=== PATIENT | female | born 1950 | race Native Hawaiian/Other Pacific Islander ===

== ENCOUNTER 2019-02-07 12:17 | Emergency (ER) | payer MEDICAID, SELFPAY ==
[2019-02-07 12:20] VITALS: BP 151/78; PULSE 83; RESP 18; TEMP 36.8; O2SAT 98
--- NOTE | 2019-02-07 13:04 | ED_ITS ---
HPI - Neck Pain/Injury General Chief Complaint: Neck Pain/Injury Stated Complaint: Neck pain Time Seen by Provider: 02/07/19 13:03 Source: patient Mode of arrival: Ambulatory Limitations: language barrier and other (chronic memory issues) History of Present Illness HPI Narrative: 69-year-old female is brought in by her niece for complaint of neck pain patient had been in the shower. She walked out to her niece and stated that her neck hurting. There was no known trauma or fall. Patient has memory issues so she does not remember any recent falls. The knee states she did hear any sounds like she'd fallen and states that she walked out on her own. Patient has had normal movement with no weakness on 1 side versus the other. She has been in her normal baseline. She is not complaining of a headache. 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 Patient does take an aspirin daily and takes medication for diabetes including insulin. Patient has not been complaining of chest pain, no shortness of breath, no nausea vomiting no other GI or urinary symptoms. She took her aspirin this morning but did not have any other medication for pain. Her family has not noticed any bruising skin changes or trauma. Patient has not been protecting herself and has had full range of motion. No fevers or chills. Review of Systems Review of Systems ROS Unobtainable: All systems reviewed & are unremarkable except as noted in HPI and below Patient History Medical History (Updated 02/07/19 @ 14:52 by Carly Torrez DO) Diabetes (Acute) Exam Narrative Exam Narrative: GEN: C-collar in ED. Patient appears in mild distress. HEAD: No evidence of trauma, no raccoon/Muniz sign. NECK: Nontender, painless range of motion, trachea midline Positive Nexus criteria, there is no mid line tenderness, distracting injury, + altered mental status second to chronic memory issues, no new changes to mental status, no neuro deficit, recent EtOH. EYES: PERRLA on right, unable to perform on left, EOMI ENT: External inspection normal except for loss of left eye. Area looks clean dry. Trachea is midline, TM's are normal no hemotypanum, Nares are clear, no septal hematoma, no dental or oral injury, airway is normal and with normal occlusion, No bony tenderness RESP: Chest is nontender and has symmetric movement, no ecchymosis, breath sounds are normal no crackles, wheezes or rales CVS: Heart sounds are normal, no murmur noted, No JVD. ABG/GI: Nontender, soft, normal bowel sounds, no distention, no organomegaly, pelvic rock is negative. NEURO: Oriented AOx3, neuro is grossly intact, sensation and motor is normal all 4 extremities moving, cranial nerves II through XII are intact. PSYCH: Normal mood and affect SKIN: Intact, warm and dry, no crepitus and without decubitus BACK: No CVA tenderness, no vertebral tenderness, patient has full range of motion of her neck. No step-off's, no crepitus EXT: Atraumatic, hips are nontender, no pedal edema, normal color and temperature, normal range of motion of extremities with normal tendon exam, 2+ pulses in all four extremities Initial Vital Signs Initial Vital Signs: Vital Signs Temperature 98.3 F 02/07/19 12:20 Pulse Rate 83 02/07/19 12:20 Respiratory Rate 18 02/07/19 12:20 Blood Pressure 151/78 H 02/07/19 12:20 Pulse Oximetry 98 02/07/19 12:20 Scores GCS [place] coma scale eye opening: Spontaneous [place] coma scale verbal response: Confused Joann coma scale motor response: Obey commands Joann coma scale total score: 14 Course Orders Ordered: ED Orders 02/07/19 13:18 CT cervical spine wo con Stat CT head/brain wo con Stat EKG-12 Lead Stat Vital Signs Vital signs: Vital Signs - 8 hr 02/07/19 12:20 02/07/19 14:53 Temperature 98.3 F Pulse Rate 83 81 Respiratory Rate 18 14 Blood Pressure 151/78 H Blood Pressure [Right Arm] 151/84 H Pulse Oximetry 98 98 MDM - Neck Pain/Injury Imaging Data CT scan - head: Radiologist's Impression: No acute intracranial hemorrhage. No acute intracranial process. Note is made of age-appropriate brain parenchymal volume loss and chronic small-vessel ischemic changes. CT Cspine: Radiologist's Impression: No acute fracture, focal C5-C6 degenerative changes with moderate disc space narrowing. Posteriorly projected endplate osteophytes are seen. Milder degenerative changes are seen elsewhere. Soft tissues are normal. ECG Data Attestation: I personally reviewed and interpreted this ECG as follows: Prior ECG tracings: not available for review Interpretation: Sinus rhythm with 1st degree AV block. Rate of 73 CA 220 QRS of 95 and QTC of 389. No ST elevation or depression appreciated. MDM Narrative Medical decision making narrative: Packs for some reason did not electronically connect and patient's reports are not available to import into the chart but are dicated into the chart. Patient does have some degenerative changes particularly at C5-6. She does not have any focal neurologic changes or other concerning changes. C-collar was cleared as patient does not have any known recent trauma, asymptomatic on exam. Patient had some Tylenol which was somewhat helpful. Plan for Tylenol, warm heat and follow-up with primary care. Discharge Plan Departure Patient Disposition: Home Clinical Impression: Neck pain, Degeneration of C5-C6 intervertebral disc Discharge Date/Time: 02/07/19 15:00 Instructions: DI for Neck Pain Activity Restrictions/Additional Instructions: Follow up with primary care for recheck, there are some chronic changes of the neck that may be causing pain. There are no fractures or breaks noted. Patient may continue with Tylenol up to 975 mg every 8 hours as needed for pain. Continue with moist heat and warmth as needed to affected area. Return to the ER for fevers greater 100.4 F, rapidly worsening pain, passing out, severe headaches, difficulty with speech, new weakness, this difficulty with movement of arms or lower extremities, problems with psychologist developmental, passing out, persistent vomiting or other new or concerning symptoms.
--- NOTE | 2019-02-07 13:18 | DI.CT.S_ITS ---
PROCEDURE: CT CERVICAL SPINE WO CON INDICATIONS: neck pain, general,? fall, no obvs trauma TECHNIQUE: Noncontrast 3 mm thick sections acquired from the skull base to the T4 level. Sagittal and coronal reformats were then constructed. For radiation dose reduction, the following was used: automated exposure control, adjustment of mA and/or kV according to patient size. COMPARISON: [facility], CT, CT HEAD/BRAIN WO CON, 02/07/2019, 13:31. FINDINGS: Image quality: Excellent. Bones: No fractures or dislocations. Visualized superior ribs are intact. Degenerative changes are seen, including moderate disc space narrowing at C5-C6 level. Posteriorly projected endplate osteophytes are seen at this level. Milder degenerative changes are seen elsewhere. Soft tissues: Prevertebral soft tissues are normal in thickness. No paravertebral hematomas. No apical pneumothoraces. Atherosclerotic calcification is noted. IMPRESSION: No acute fractures are seen. Focal C5-C6 degenerative change. Dictated by: Roshan Ibrahim M.D. on 02/07/2019 at 12:57 Approved by: Roshan Ibrahim M.D. on 02/07/2019 at 12:58
--- NOTE | 2019-02-07 13:18 | DI.CT.S_ITS ---
PROCEDURE: CT HEAD/BRAIN WO CON INDICATIONS: NECK PAIN ?FALL TECHNIQUE: Noncontrast 4.5 mm thick angled axial sections acquired from the foramen magnum to the vertex, with coronal and sagittal reformats. For radiation dose reduction, the following was used: automated exposure control, adjustment of mA and/or kV according to patient size. COMPARISON: [facility], CT, CT CERVICAL SPINE WO CON, 02/07/2019, 13:31. FINDINGS: Image quality: Excellent. CSF spaces: Basal cisterns are patent. No extra-axial fluid collections. The ventricles are symmetric in size and shape. Brain: No intracranial bleeds or masses. There is cerebral volume loss for age, with resultant ventricular and sulcal prominence. There are periventricular and deep white matter chronic small vessel ischemic changes. There is intracranial internal carotid artery atherosclerosis. Skull and face: Calvarium and visualized facial bones appear intact, without suspicious lesions. Sinuses: Visualized sinuses and mastoids are clear. IMPRESSION: No acute intracranial hemorrhage is seen. No acute intracranial process is seen. Note is made of age-appropriate brain parenchymal volume loss and chronic small vessel ischemic changes. Dictated by: Roshan Ibrahim M.D. on 02/07/2019 at 12:56 Approved by: Roshan Ibrahim M.D. on 02/07/2019 at 12:57
[2019-02-07 14:53] VITALS: BP 151/84; PULSE 81; RESP 14; O2SAT 98
== END 2019-02-07 15:00 | disposition home or self-care (01) ==
PROVIDERS: Emergency Provider Emergency Medicine
DX: M50.322 Other cervical disc degeneration at C5-C6 level (principal); R41.0 Disorientation, unspecified; I44.0 Atrioventricular block, first degree
CPT/HCPCS: 70450; 72125; 93005; 99283; 99284

== ENCOUNTER 2019-04-16 16:12 | Inpatient (IN) | payer MEDICAID, SELFPAY ==
[2019-04-16 16:44] VITALS: BP 82/42; PULSE 65; RESP 16; TEMP 36.3; O2SAT 100; BMI 18.3
[2019-04-16 19:28] VITALS: BP 95/53; PULSE 60; RESP 14; O2SAT 97
--- NOTE | 2019-04-16 19:30 | ED_ITS ---
HPI - Altered Mental Status General Chief Complaint: Altered Mental Status Stated Complaint: latisha dahl,family says she fainted Time Seen by Provider: 04/16/19 19:23 Source: patient and family Mode of arrival: Wheelchair Limitations: language barrier History of Present Illness HPI narrative: 69F nonsmoking diabetic with history of hyperlipidemia presents with her niece and a chief complaint of some gradual mental status supervisor records change the past week or so but a substantial change tonight. She states that she has become this way in the past with urinary tract infections. Patient denies any medication change nor dietary change. She denies any injury nor recent travel. She has had no fever or chills. She denies any chest pain, cough or shortness of breath. MD complaint: altered mental status and confusion Onset (ago): hour(s) Timing confirmed by: family member Severity: moderate Consistency of symptoms: getting worse Context: history of similar presentation Associated symptoms: denies other symptoms Related Data Home Medications Medication Instructions Recorded Confirmed Adults Multivitamin 04/17/19 aspirin [Adult Low Dose Aspirin] 81 mg 4-6XD 04/17/19 04/17/19 insulin glargine [Lantus U-100 6 unit SUBCUT BID 04/17/19 04/17/19 Insulin] metformin 500 mg BID 04/17/19 04/17/19 simvastatin 04/17/19 Review of Systems Constitutional Constitutional: Denies chills, Denies fatigue, Denies fever(s), Denies frequent falls, Reports lethargy and Reports weakness Eyes Eyes: Denies change in vision, Denies eye discharge, Denies irritation and Denies loss of vision ENT Ears, Nose, Mouth, and Throat: Denies change in voice, Denies dizziness, Denies neck pain, Denies sore throat and Denies throat swelling Cardiovascular Cardiovascular: Denies chest pain, Denies irregular heart rhythm, Denies lightheadedness, Denies palpitations, Denies dyspnea, Denies dyspnea on exertion and Denies orthopnea Respiratory Respiratory: Denies cough, Denies dyspnea, Denies dyspnea on exertion and Denies wheezing Gastrointestinal Gastrointestinal: Denies abdominal pain, Denies change in bowel habits, Denies diarrhea, Denies nausea and Denies vomiting Genitourinary Genitourinary: Denies hematuria, Denies flank pain, Denies urinary incontinence and Denies urinary urgency Musculoskeletal Musculoskeletal: Denies back pain, Denies muscle weakness, Denies neck pain, Denies numbness and Denies tingling Integumentary/Breasts Skin/Breast: Denies pruritus, Denies erythema, Denies rash and Denies wounds Neurologic Neurologic: Denies behavioral changes, Denies confusion, Denies dizziness, Denies frequent falls, Denies loss of vision, Denies numbness, Denies tingling and Reports weakness Psychiatric Psychiatric: Denies anxiety, Denies behavioral changes, Denies confusion, Denies depression, Denies homicidal ideation and Denies suicidal ideation Endocrine Endocrine: Denies fatigue, Denies flushing and Denies palpitations Hematologic/Lymphatic Hematologic/Lymphatic: Denies easy bruising Allergic/Immunologic Allergic/Immunologic: Denies urticaria, Denies throat swelling and Denies whee zing Patient History Medical History Diabetes (Acute) Social History household members: family Smoking Status: Never smoker alcohol intake: never Smoking Status: Never smoker Substance Use Type: does not use Exam Narrative Exam Narrative: GENERAL: [69 year old patient appears stated age. Very thin with temporal wasting, easily arousable but resting HEAD: Atraumatic. Normocephalic. EYES: Pupils equal round and reactive. Extraocular motions intact. No scleral icterus. No injection or drainage. ENT: Nose without bleeding, purulent drainage. Throat without erythema, tonsillar hypertrophy or exudate. Airway patent. NECK: Trachea midline. Non tender CARDIOVASCULAR: Regular rate and rhythm without murmurs, gallops, or rubs. RESPIRATORY: Clear to auscultation. Breath sounds equal bilaterally. No wheezes, rales, or rhonchi. GASTROINTESTINAL: Abdomen soft, non-tender, nondistended. EXTREMITIES: No edema or joint tenderness. BACK: Nontender without deformity or crepitance. No flank tenderness. NEURO: AOx3. SKIN: No rash or erythema of visible areas Initial Vital Signs Initial Vital Signs: Vital Signs Temperature 97.3 F L 04/16/19 16:44 Pulse Rate 65 04/16/19 16:44 Respiratory Rate 16 04/16/19 16:44 Blood Pressure 82/42 L 04/16/19 16:44 Pulse Oximetry 100 04/16/19 16:44 Course Orders Ordered: ED Orders 04/16/19 23:30 Urinalysis and Microscopic Stat Urine Culture Stat Urine Drug Screen, Rapid Stat Acetaminophen (Tylenol) 650 mg PO Q6HR PRN PRN Reason: Fever/Mild Pain (1-3) Al Hydrox/Mg Hydrox/Simethicone (Maalox Plus) 30 ml PO Q6HR PRN PRN Reason: Dyspepsia Aspirin (Aspirin Ec) 81 mg PO DAILY ISAI Bisacodyl (Dulcolax) 10 mg AL DAILY PRN PRN Reason: Constipation Calcium Carbonate (Tums) 1,000 mg PO Q4HR PRN PRN Reason: Dyspepsia Dextrose (D50w) 25 gm IV PRN PRN; Protocol PRN Reason: Hypoglycemia Docusate Sodium (Colace) 100 mg PO BID PRN PRN Reason: Constipation Enoxaparin Sodium (Lovenox) 30 mg SUBCUT DAILY [facility] Sodium Chloride (Normal Saline 0.9%) 1,000 mls @ 100 mls/hr IV CONT [facility] Last Admin: 04/17/19 02:24 Dose: 100 mls/hr Documented by: REBECCA Ceftriaxone Sodium/Dextrose (Rocephin) 1 gm in 50 mls @ 100 mls/hr IV Q24H [facility] Insulin Aspart (Novolog Flexpen) 0 unit SUBCUT ACHS [facility]; Protocol Last Admin: 04/17/19 02:23 Dose: 2 unit Documented by: REBECCA Cosigned by: JESUS Insulin Glargine (Lantus (Vial)) 6 unit SUBCUT BID [facility] Naloxone HCl (Narcan) 0.2 mg IV Q2MIN PRN PRN Reason: Opiate Reversal Ondansetron HCl (Zofran) 4 mg IV Q8HR PRN PRN Reason: Nausea And Vomiting Discontinued Medications Aspirin (Aspirin Ec) 81 mg PO 4-6XD [facility] Sodium Chloride (Normal Saline 0.9%) 1,000 mls @ 1,000 mls/hr IV BOLUS ONE Stop: 04/16/19 21:34 Last Infusion: 04/16/19 23:57 Dose: 0 mls/hr Documented by: Admin: 04/16/19 20:44 Dose: 1,000 mls/hr Documented by: SHAHEEN Ceftriaxone Sodium/Dextrose (Rocephin) 1 gm in 50 mls @ 100 mls/hr IV NOW ONE Stop: 04/17/19 00:31 Last Infusion: 04/17/19 00:53 Dose: 0 mls/hr Documented by: Admin: 04/17/19 00:28 Dose: 100 mls/hr Documented by: SHAHEEN Metformin HCl (Glucophage) 500 mg PO BID ISAI Vital Signs Vital signs: Vital Signs - 8 hr 04/16/19 16:44 04/16/19 19:28 04/16/19 20:30 Temperature 97.3 F L Pulse Rate 65 60 61 Respiratory Rate 16 14 12 Blood Pressure 82/42 L Blood Pressure [Left Arm] 95/53 L 92/54 L Pulse Oximetry 100 97 99 04/16/19 21:12 Temperature Pulse Rate 66 Respiratory Rate 16 Blood Pressure Blood Pressure [Left Arm] 94/55 L Pulse Oximetry 100 MDM - Altered Mental Status Lab Data Result diagrams: 04/16/19 20:39 04/16/19 20:39 Labs: Lab Results 04/16/19 04/16/19 04/16/19 Range/Units 20:39 20:39 20:39 WBC 8.4 (4.5-11.0) X10^3/uL RBC 3.04 L (4.0-5.2) X10^6/uL Hgb 9.4 L (12.0-16.0) g/dL Hct 27.5 L (36-46) % MCV 90.4 (80-100) fL MCH 31.1 (26-34) PG MCHC 34.4 (30-36) % RDW 13.4 (11.6-14.8) % Plt Count 227 (150-400) X10^3/uL Neut % (Auto) 83.4 H (50-75) % Lymph % (Auto) 9.2 L (25-40) % Mclean % (Auto) 7.0 (3-14) % Eos % (Auto) 0.1 L (2-4) % Baso % (Auto) 0.3 (0-2) % Neut # (Auto) 7000 (8898-4237) /uL Lymph # (Auto) 800 L (8563-3802) /uL Mclean # (Auto) 600 (0-900) /uL Eos # (Auto) 0 (0-450) /uL Baso # (Auto) 0 (0-100) /uL PT 10.9 (10.1-12.7) SECONDS INR 1.0 (0.9-1.3) APTT 30 (26.4-36.2) SECONDS Sodium 123 L (137-145) mmol/L Potassium 4.3 (3.4-5.1) mmol/L Chloride 87 L (98-107) mmol/L Carbon Dioxide 24 (22-32) mmol/L BUN 45 H (7-17) mg/dL Creatinine 1.70 H (0.52-1.04) mg/dL Estimated GFR 29.6 L (>60) mL/min BUN/Creatinine Ratio 26.5 H (6-22) Glucose 307 H (80-110) mg/dL Lactate (0.7-2.1) mmol/L Calcium 8.9 (8.4-10.2) mg/dL Total Bilirubin 0.2 (0.2-1.3) mg/dL AST 67 H (14-36) IU/L ALT 39 H (<35) IU/L Alkaline Phosphatase 63 (38-126) U/L Total Creatine Kinase 141 H (30-135) U/L CK-MB (CK-2) 1.71 (<2.37) ng/mL CK-MB (CK-2) Rel Index 1.2 L (1.5-5.0) % Troponin I < 0.012 (0.01-0.034) ng/mL Total Protein 6.8 (6.3-8.2) g/dL Albumin 3.5 (3.5-5.0) g/dL Globulin 3.3 (1.7-4.1) g/dL Albumin/Globulin Ratio 1.1 (1.0-2.8) TSH (0.47-4.68) uIU/mL Prolactin 8.2 (3.0-18.6) ng/mL Urine Color Urine Appearance Urine pH (4.5-8.0) Ur Specific Napoleon (1.000-1.035) Urine Protein (Negative) Urine Glucose (UA) (Negative) g/dL Urine Ketones (NEGATIVE) Urine Occult Blood (Negative) Urine Nitrate (Negative) Urine Bilirubin (NEGATIVE) Urine Urobilinogen (0.2) E.U./dL Ur Leukocyte Esterase (NEGATIVE) Urine RBC (0-5/HPF) Urine WBC (0-5/HPF) Ur Squamous Epith Cells (0-5/HPF) Urine Bacteria (None) Ur Culture Indicated? Salicylates 1.2 (<20) mg/dL U Opiates 300ng/mL cut (Negative) Ur Oxycodone Screen (Negative) Urine Methadone Screen (Negative) Acetaminophen < 10 L (10-30) ug/mL Ur Barbiturates Screen (Negative) U Tricyclic Antidepress (Negative) Ur Phencyclidine Scrn (Negative) Ur Amphetamines Screen (Negative) U Methamphetamines Scrn (Negative) Ur MDMA Scrn (Ecstasy) (Negative) U Benzodiazepines Scrn (Negative) Urine Cocaine Screen (Negative) U Marijuana (THC) Screen (Negative) Ethyl Alcohol < 10 ( - 10) mg/dL 04/16/19 04/16/19 04/16/19 Range/Units 20:39 20:50 23:30 WBC (4.5-11.0) X10^3/uL RBC (4.0-5.2) X10^6/uL Hgb (12.0-16.0) g/dL Hct (36-46) % MCV (80-100) fL MCH (26-34) PG MCHC (30-36) % RDW (11.6-14.8) % Plt Count (150-400) X10^3/uL Neut % (Auto) (50-75) % Lymph % (Auto) (25-40) % Mclean % (Auto) (3-14) % Eos % (Auto) (2-4) % Baso % (Auto) (0-2) % Neut # (Auto) (6688-7769) /uL Lymph # (Auto) (0309-4945) /uL Mclean # (Auto) (0-900) /uL Eos # (Auto) (0-450) /uL Baso # (Auto) (0-100) /uL PT (10.1-12.7) SECONDS INR (0.9-1.3) APTT (26.4-36.2) SECONDS Sodium (137-145) mmol/L Potassium (3.4-5.1) mmol/L Chloride (98-107) mmol/L Carbon Dioxide (22-32) mmol/L BUN (7-17) mg/dL Creatinine (0.52-1.04) mg/dL Estimated GFR (>60) mL/min BUN/Creatinine Ratio (6-22) Glucose (80-110) mg/dL Lactate 1.9 (0.7-2.1) mmol/L Calcium (8.4-10.2) mg/dL Total Bilirubin (0.2-1.3) mg/dL AST (14-36) IU/L ALT (<35) IU/L Alkaline Phosphatase (38-126) U/L Total Creatine Kinase (30-135) U/L CK-MB (CK-2) (<2.37) ng/mL CK-MB (CK-2) Rel Index (1.5-5.0) % Troponin I (0.01-0.034) ng/mL Total Protein (6.3-8.2) g/dL Albumin (3.5-5.0) g/dL Globulin (1.7-4.1) g/dL Albumin/Globulin Ratio (1.0-2.8) TSH 0.39 L (0.47-4.68) uIU/mL Prolactin (3.0-18.6) ng/mL Urine Color Yellow Urine Appearance Cloudy Urine pH 6.5 (4.5-8.0) Ur Specific Napoleon 1.010 (1.000-1.035) Urine Protein Negative (Negative) Urine Glucose (UA) Trace H (Negative) g/dL Urine Ketones Negative (NEGATIVE) Urine Occult Blood 1+ H (Negative) Urine Nitrate Negative (Negative) Urine Bilirubin Negative (NEGATIVE) Urine Urobilinogen 0.2 (0.2) E.U./dL Ur Leukocyte Esterase 3+ H (NEGATIVE) Urine RBC 0-1/hpf (0-5/HPF) Urine WBC 30-100/hpf H (0-5/HPF) Ur Squamous Epith Cells 1-5 /hpf (0-5/HPF) Urine Bacteria Many (>30) H (None) Ur Culture Indicated? Specimen cultured Salicylates (<20) mg/dL U Opiates 300ng/mL cut (Negative) Ur Oxycodone Screen (Negative) Urine Methadone Screen (Negative) Acetaminophen (10-30) ug/mL Ur Barbiturates Screen (Negative) U Tricyclic Antidepress (Negative) Ur Phencyclidine Scrn (Negative) Ur Amphetamines Screen (Negative) U Methamphetamines Scrn (Negative) Ur MDMA Scrn (Ecstasy) (Negative) U Benzodiazepines Scrn (Negative) Urine Cocaine Screen (Negative) U Marijuana (THC) Screen (Negative) Ethyl Alcohol ( - 10) mg/dL 04/16/19 Range/Units 23:30 WBC (4.5-11.0) X10^3/uL RBC (4.0-5.2) X10^6/uL Hgb (12.0-16.0) g/dL Hct (36-46) % MCV (80-100) fL MCH (26-34) PG MCHC (30-36) % RDW (11.6-14.8) % Plt Count (150-400) X10^3/uL Neut % (Auto) (50-75) % Lymph % (Auto) (25-40) % Mclean % (Auto) (3-14) % Eos % (Auto) (2-4) % Baso % (Auto) (0-2) % Neut # (Auto) (5380-8711) /uL Lymph # (Auto) (3253-5580) /uL Mclean # (Auto) (0-900) /uL Eos # (Auto) (0-450) /uL Baso # (Auto) (0-100) /uL PT (10.1-12.7) SECONDS INR (0.9-1.3) APTT (26.4-36.2) SECONDS Sodium (137-145) mmol/L Potassium (3.4-5.1) mmol/L Chloride (98-107) mmol/L Carbon Dioxide (22-32) mmol/L BUN (7-17) mg/dL Creatinine (0.52-1.04) mg/dL Estimated GFR (>60) mL/min BUN/Creatinine Ratio (6-22) Glucose (80-110) mg/dL Lactate (0.7-2.1) mmol/L Calcium (8.4-10.2) mg/dL Total Bilirubin (0.2-1.3) mg/dL AST (14-36) IU/L ALT (<35) IU/L Alkaline Phosphatase (38-126) U/L Total Creatine Kinase (30-135) U/L CK-MB (CK-2) (<2.37) ng/mL CK-MB (CK-2) Rel Index (1.5-5.0) % Troponin I (0.01-0.034) ng/mL Total Protein (6.3-8.2) g/dL Albumin (3.5-5.0) g/dL Globulin (1.7-4.1) g/dL Albumin/Globulin Ratio (1.0-2.8) TSH (0.47-4.68) uIU/mL Prolactin (3.0-18.6) ng/mL Urine Color Urine Appearance Urine pH (4.5-8.0) Ur Specific Napoleon (1.000-1.035) Urine Protein (Negative) Urine Glucose (UA) (Negative) g/dL Urine Ketones (NEGATIVE) Urine Occult Blood (Negative) Urine Nitrate (Negative) Urine Bilirubin (NEGATIVE) Urine Urobilinogen (0.2) E.U./dL Ur Leukocyte Esterase (NEGATIVE) Urine RBC (0-5/HPF) Urine WBC (0-5/HPF) Ur Squamous Epith Cells (0-5/HPF) Urine Bacteria (None) Ur Culture Indicated? Salicylates (<20) mg/dL U Opiates 300ng/mL cut Negative (Negative) Ur Oxycodone Screen Negative (Negative) Urine Methadone Screen Negative (Negative) Acetaminophen (10-30) ug/mL Ur Barbiturates Screen Negative (Negative) U Tricyclic Antidepress Negative (Negative) Ur Phencyclidine Scrn Negative (Negative) Ur Amphetamines Screen Negative (Negative) U Methamphetamines Scrn Negative (Negative) Ur MDMA Scrn (Ecstasy) Negative (Negative) U Benzodiazepines Scrn Negative (Negative) Urine Cocaine Screen Negative (Negative) U Marijuana (THC) Screen Negative (Negative) Ethyl Alcohol ( - 10) mg/dL Point of Care Testing Glucose POC 259 MDM Narrative Medical decision making narrative: 69-year-old female diabetic presents with acute encephalopathy which upon completion of evaluation seems multifactorial, from a combination of UTI and hyponatremia. Discharge Plan Departure Patient Disposition: Admitted As Inpatient Clinical Impression: Acute metabolic encephalopathy, Acute hyponatremia Admit Date/Time: 04/17/19 00:55 Admit Provider: Faisal Hardin
--- NOTE | 2019-04-16 19:32 | PC.NURSE ---
patient brought in by niece who states her aunt is becoming very weak. States she is normally very active. Reports same symptoms one year ago with UTI.
[2019-04-16 20:30] VITALS: BP 92/54; PULSE 61; RESP 12; O2SAT 99
--- NOTE | 2019-04-16 20:36 | DI.CT.S_ITS ---
PROCEDURE: CT HEAD/BRAIN WO CON INDICATIONS: mental status change TECHNIQUE: Noncontrast 4.5 mm thick angled axial sections acquired from the foramen magnum to the vertex, with coronal and sagittal reformats. For radiation dose reduction, the following was used: automated exposure control, adjustment of mA and/or kV according to patient size. COMPARISON: [facility], CT, CT HEAD/BRAIN WO CON, 02/07/2019, 13:31. FINDINGS: Image quality: Excellent. CSF spaces: Basal cisterns are patent. No extra-axial fluid collections. The ventricles are symmetric in size and shape. Brain: No intracranial bleeds or masses. There is cerebral volume loss for age, with resultant ventricular and sulcal prominence. There are periventricular and deep white matter chronic small vessel ischemic changes. There is intracranial internal carotid artery atherosclerosis. Skull and face: Calvarium and visualized facial bones appear intact, without suspicious lesions. Prosthetic left globe. Sinuses: Visualized sinuses and mastoids are clear. IMPRESSION: No acute intracranial abnormality. Dictated by: Zbigniew Singh M.D. on 04/16/2019 at 21:05 Approved by: Zbigniew Singh M.D. on 04/16/2019 at 21:07
[2019-04-16] MEDS: SODIUM CHLORIDE 0.9% 1,000 ML 1000 ML IV (20:44)
[2019-04-16 20:47] LABS: Add Manual Diff / Slide Review NO; Basophils Absolute Auto 0 /uL (0-100); Basophils Percent Auto 0.3 % (0-2); Eosinophils Absolute Auto 0 /uL (0-450); Eosinophils Percent Auto 0.1 % (2-4); Hematocrit 27.5 % (36-46); Hemoglobin 9.4 g/dL (12.0-16.0); Lymphocytes Absolute Auto 800 /uL (1100-4500); Lymphocytes Percent Auto 9.2 % (25-40); Mean Corpuscular HGB Conc 34.4 % (30-36); Mean Corpuscular Hemoglobin 31.1 PG (26-34); Mean Corpuscular Volume 90.4 fL (80-100); Monocytes Absolute Auto 600 /uL (0-900); Neutrophils Absolute Auto 7000 /uL (1500-7000); Neutrophils Percent Auto 83.4 % (50-75); Platelet Count 227 X10^3/uL (150-400); Red Blood Cell Count 3.04 X10^6/uL (4.0-5.2); Red Cell Distribution Width 13.4 % (11.6-14.8); White Blood Cell Count 8.4 X10^3/uL (4.5-11.0)
[2019-04-16 20:59] LABS: Prothrombin Time 10.9 SECONDS (10.1-12.7)
[2019-04-16 21:01] LABS: PTT Partial Thromboplastin Tim 30 SECONDS (26.4-36.2)
[2019-04-16 21:04] LABS: Acetaminophen < 10 ug/mL (10-30); Alanine Aminotransferase 39 IU/L (<35); Albumin 3.5 g/dL (3.5-5.0); Albumin Globulin Ratio 1.1 (1.0-2.8); Alkaline Phosphatase 63 U/L (38-126); Aspartate Aminotransferase 67 IU/L (14-36); BUN Creatinine Ratio 26.5 (6-22); Bilirubin Total 0.2 mg/dL (0.2-1.3); Blood Urea Nitrogen 45 mg/dL (7-17); Calcium 8.9 mg/dL (8.4-10.2); Carbon Dioxide 24 mmol/L (22-32); Chloride 87 mmol/L (98-107); Creatine Kinase 141 U/L (30-135); Estimated Glomerular Filt Rate 29.6 mL/min (>60); Ethanol (ETOH) < 10 mg/dL; Globulin 3.3 g/dL (1.7-4.1); Glucose 307 mg/dL (80-110); HEMOLYSIS < 15 (0-50); Potassium 4.3 mmol/L (3.4-5.1); Salicylate 1.2 mg/dL (<20); Sodium 123 mmol/L (137-145); Total Protein 6.8 g/dL (6.3-8.2)
[2019-04-16 21:12] VITALS: BP 94/55; PULSE 66; RESP 16; O2SAT 100
[2019-04-16 21:15] LABS: Troponin I < 0.012 ng/mL (0.01-0.034)
[2019-04-16 21:18] LABS: CKMB % Relative Index 1.2 % (1.5-5.0); Creatine Kinase MB 1.71 ng/mL (<2.37)
[2019-04-16 21:20] LABS: Prolactin 8.2 ng/mL (3.0-18.6)
[2019-04-16 21:21] LABS: Lactate (Lactic Acid) 1.9 mmol/L (0.7-2.1)
[2019-04-16 21:33] LABS: Thyroid Stimulating Hormone 0.39 uIU/mL (0.47-4.68)
[2019-04-16 23:47] LABS: Appearance Urine UA CLOUDY; Bilirubin Urine UA NEGATIVE (NEGATIVE); Color Urine UA YELLOW; Glucose Urine UA TRACE g/dL (Negative); Ketones Urine UA NEGATIVE (NEGATIVE); Leukocyte Esterase Urine UA 3+ (NEGATIVE); Nitrite Urine UA NEGATIVE (Negative); Occult Blood Urine UA 1+ (Negative); Protein Urine UA NEGATIVE (Negative); Urobilinogen Urine UA 0.2 E.U./dL (0.2)
[2019-04-16 23:51] LABS: pH Urine UA 6.5 (4.5-8.0)
[2019-04-16 23:53] LABS: Bacteria Urine Many (>30); Culture Indicated Urine Specimen Cultured; RBC Urine 0-1/HPF (0-5/HPF); Squamous Epithelial Cell Urine 1-5 /HPF (0-5/HPF); Ur Creatinine Normal (Normal); Ur Specific Gravity Normal (Normal); Urine pH Normal (Normal); WBC Urine 30-100/HPF (0-5/HPF)
[2019-04-16 23:54] LABS: UR Morphine/Opiate cutoff 300 Negative (Negative); Urine Amphetamines Negative (Negative); Urine Barbiturates Negative (Negative); Urine Benzodiazepines Negative (Negative); Urine Cocaine Negative (Negative); Urine MDMA Negative (Negative); Urine Methadone Negative (Negative); Urine Methamphetamines Negative (Negative); Urine Oxycodone Negative (Negative); Urine Phencyclidine Negative (Negative); Urine Tetrahydrocannabinol Negative (Negative); Urine Tricyclic Antidepressant Negative (Negative)
[2019-04-17] VITALS (10 sets, daily range): BP systolic 102–179; BP diastolic 58–93; PULSE 75–98; RESP 16–20; TEMP 35.8–38.5; O2SAT 97–99; BMI 18.3
[2019-04-17] MEDS: CEFTRIAXONE 1 GM/50 ML FROZ.PIGGY IV ×2 (00:28→23:36)
--- NOTE | 2019-04-17 01:47 | PM.HP.1 ---
History of Present Illness History of Present Illness Date Patient Seen: 04/17/19 Time Patient Seen: 01:48 Chief complaint: latisha dahl,family says she fainted Narrative: Miss Felicitas Smalls is a 69-year-old with a past medical history significant for diabetes, hyperlipidemia and dementia who presents to the ER for altered mental status. The patient is here with her daughter Khushboo who facilitates history taking is the patient speaks the [place] language of [facility]. She is the primary caregiver for her mother and received a call from family members that her mother was not herself. They describe weakness, lethargy, increased confusion and staring off into space. Patient does have an underlying history of dementia and will at times isolate and have reduced interactions but not to this extent. The daughter reports that the patient was in her usual state health yesterday. She reports no complaints of fevers or chills however complaint of chills today. She has had no complaints of headaches or dizziness nasal congestion sore throat. She has had no chest pain or palpitations, shortness of breath cough or wheezing. She denies abdominal pain heartburn or nausea. The daughter helps with subjective evaluation as the patient is unable to provide the information at this time due to altered mental status. Upon arrival to the ER the patient has a temperature 97.3?, heart rate of 65, blood pressure of 82/42, respirations 16 saturating 100% on room air. CT of the head obtained which finds no acute intracranial processes. Laboratory analysis shows a white count of 8.4, hemoglobin 9.4, hematocrit of 27.5 and platelets of 227. Her coagulation studies are within normal limits and she is found to be hyponatremic at 123 with a potassium of 4.3. She has a BUN of 45 and creatinine 1.7. Her nonfasting glucose is 307. She has a bilirubin is 0.2, AST of 67, ALT of 39 and alkaline phosphatase of 63. She has a total CK of 141, CK-MB of 1.71. Her troponin is less than 0.012. She has a although TSH at 0.39. Urine tox is negative and urinalysis reveals positive leukocyte esterase white blood cells with many bacteria and is reflex to culture. The patient is admitted to the medicine service for altered mental status, hyponatremia and UTI and possible acute kidney injury. Patient History Medical History (Updated 04/17/19 @ 09:41 by FLORINDA Thompson) Dementia (Acute) Diabetes (Acute) Surgical History (Updated 04/17/19 @ 09:41 by FLORINDA Thompson) H/O enucleation of left eyeball (Acute) Family & Social History Family History (Updated 04/17/19 @ 09:42 by FLORINDA Thompson) Father Diabetes mellitus Smoker Mother Diabetes mellitus Brother Diabetes mellitus Sister Heart attack Daughter Diabetes mellitus Social History: household members family Safety & Behavioral: Feels Safe in Current Yes Environment Been Physically Hurt or No Threatened By a Person Suicidal Ideation Description None Suicide Plan Description No Plan Tobacco & Substance use: Smoking Status Never smoker alcohol intake never Substance Use Type does not use Comment: The patient lives in a single family home with her family. Her is a profoundly strong family history diabetes. Smoking: The patient has never used tobacco products. Alcohol: The patient has never consumed alcoholic beverages. Substance use: The patient does not use recreational pharmaceuticals herbal or cannabis products. Advanced directives: The patient is unable to state her desire for resuscitation, by default and with concurrence of patient's daughter the patient will be made FULL CODE. The patient's daughter Khushboo is her designated emergency Contact and will be her surrogate decision maker until the patient is able to express her wishes. Meds Home Medications and Allergies Home Medications Medication Instructions Recorded Confirmed Type Adults Multivitamin 04/17/19 History aspirin [Adult Low Dose Aspirin] 81 mg 4-6XD 04/17/19 04/17/19 History insulin glargine [Lantus U-100 6 unit SUBCUT BID 04/17/19 04/17/19 History Insulin] metformin 500 mg BID 04/17/19 04/17/19 History simvastatin 04/17/19 History Review of Systems Review of Systems ROS: Yes All systems reviewed with the patient and are negative except as otherwise documented and unobtainable due to mental status (Patient is nonverbal) Exam Vital Signs (past 8 hours): - 04/16/19 19:28 04/16/19 20:30 04/16/19 21:12 Temperature Pulse Rate 60 61 66 Respiratory Rate 14 12 16 Blood Pressure Blood Pressure [Left Arm] 95/53 L 92/54 L 94/55 L Pulse Oximetry 97 99 100 04/17/19 01:35 Temperature 96.5 F L Pulse Rate 75 Respiratory Rate 16 Blood Pressure 117/63 Blood Pressure [Left Arm] Pulse Oximetry 99 Oxygen Delivery Method Room Air Narrative Exam Narrative: GENERAL APPEARANCE: well developed, frail-appearing woman appearing older than her stated age who is nonverbal, in no acute distress. HEENT: Normocephalic, PERRLA, conjunctiva clear, sclera anicteric, no rhinorrhea, oral pharynx pink and dry, no lymphadenopathy NECK/THYROID: neck supple, flat jugular veins, no carotid bruit, no thyromegaly, trachea midline. LYMPH NODES: no cervical or supraclavicular lymphadenopathy. SKIN: warm and dry, no suspicious lesions, no rashes. HEART: regular rate and rhythm, S1-S2 without murmur, no rubs or gallops, no edema LUNGS: clear to auscultation bilaterally, no coarseness crackles or wheezing, no cough present CHEST: Symmetrical movement, no accessory muscle use, no pain to AP and lateral compression. ABDOMEN: Soft, flat, dull percussion, no abdominal tenderness on palpation, no organomegaly, active bowel tones. EXTREMITIES: moves all extremities, strength is 5/5 and symmetrical, no deformities or joint effusions. NEUROLOGIC: GCS is 11, will track to sound, no lateralizing neurological deficits, sensation intact to noxious stimulus. PSYCH: Awake non communicative/nonverbal Objective Labs Result Diagrams: 04/17/19 04:55 04/17/19 04:55 Labs: Laboratory Results - last 24 hr 04/16/19 04/16/19 04/16/19 20:39 20:39 20:39 WBC 8.4 RBC 3.04 L Hgb 9.4 L Hct 27.5 L MCV 90.4 MCH 31.1 MCHC 34.4 RDW 13.4 Plt Count 227 Neut % (Auto) 83.4 H Lymph % (Auto) 9.2 L [place] % (Auto) 7.0 Eos % (Auto) 0.1 L Baso % (Auto) 0.3 Neut # (Auto) 7000 Lymph # (Auto) 800 L [place] # (Auto) 600 Eos # (Auto) 0 Baso # (Auto) 0 PT 10.9 INR 1.0 APTT 30 Sodium 123 L Potassium 4.3 Chloride 87 L Carbon Dioxide 24 BUN 45 H Creatinine 1.70 H Estimated GFR 29.6 L BUN/Creatinine Ratio 26.5 H Glucose 307 H Lactate Calcium 8.9 Total Bilirubin 0.2 AST 67 H ALT 39 H Alkaline Phosphatase 63 Total Creatine Kinase 141 H CK-MB (CK-2) 1.71 CK-MB (CK-2) Rel Index 1.2 L Troponin I < 0.012 Total Protein 6.8 Albumin 3.5 Globulin 3.3 Albumin/Globulin Ratio 1.1 TSH Prolactin 8.2 Urine Color Urine Appearance Urine pH Ur Specific [place] Urine Protein Urine Glucose (UA) Urine Ketones Urine Occult Blood Urine Nitrate Urine Bilirubin Urine Urobilinogen Ur Leukocyte Esterase Urine RBC Urine WBC Ur Squamous Epith Cells Urine Bacteria Ur Culture Indicated? Salicylates 1.2 U Opiates 300ng/mL cut Ur Oxycodone Screen Urine Methadone Screen Acetaminophen < 10 L Ur Barbiturates Screen U Tricyclic Antidepress Ur Phencyclidine Scrn Ur Amphetamines Screen U Methamphetamines Scrn Ur MDMA Scrn (Ecstasy) U Benzodiazepines Scrn Urine Cocaine Screen U Marijuana (THC) Screen Ethyl Alcohol < 10 04/16/19 04/16/19 04/16/19 20:39 20:50 23:30 WBC RBC Hgb Hct MCV MCH MCHC RDW Plt Count Neut % (Auto) Lymph % (Auto) [place] % (Auto) Eos % (Auto) Baso % (Auto) Neut # (Auto) Lymph # (Auto) [place] # (Auto) Eos # (Auto) Baso # (Auto) PT INR APTT Sodium Potassium Chloride Carbon Dioxide BUN Creatinine Estimated GFR BUN/Creatinine Ratio Glucose Lactate 1.9 Calcium Total Bilirubin AST ALT Alkaline Phosphatase Total Creatine Kinase CK-MB (CK-2) CK-MB (CK-2) Rel Index Troponin I Total Protein Albumin Globulin Albumin/Globulin Ratio TSH 0.39 L Prolactin Urine Color Yellow Urine Appearance Cloudy Urine pH 6.5 Ur Specific [place] 1.010 Urine Protein Negative Urine Glucose (UA) Trace H Urine Ketones Negative Urine Occult Blood 1+ H Urine Nitrate Negative Urine Bilirubin Negative Urine Urobilinogen 0.2 Ur Leukocyte Esterase 3+ H Urine RBC 0-1/hpf Urine WBC 30-100/hpf H Ur Squamous Epith Cells 1-5 /hpf Urine Bacteria Many (>30) H Ur Culture Indicated? Specimen cultured Salicylates U Opiates 300ng/mL cut Ur Oxycodone Screen Urine Methadone Screen Acetaminophen Ur Barbiturates Screen U Tricyclic Antidepress Ur Phencyclidine Scrn Ur Amphetamines Screen U Methamphetamines Scrn Ur MDMA Scrn (Ecstasy) U Benzodiazepines Scrn Urine Cocaine Screen U Marijuana (THC) Screen Ethyl Alcohol 04/16/19 23:30 WBC RBC Hgb Hct MCV MCH MCHC RDW Plt Count Neut % (Auto) Lymph % (Auto) [place] % (Auto) Eos % (Auto) Baso % (Auto) Neut # (Auto) Lymph # (Auto) [place] # (Auto) Eos # (Auto) Baso # (Auto) PT INR APTT Sodium Potassium Chloride Carbon Dioxide BUN Creatinine Estimated GFR BUN/Creatinine Ratio Glucose Lactate Calcium Total Bilirubin AST ALT Alkaline Phosphatase Total Creatine Kinase CK-MB (CK-2) CK-MB (CK-2) Rel Index Troponin I Total Protein Albumin Globulin Albumin/Globulin Ratio TSH Prolactin Urine Color Urine Appearance Urine pH Ur Specific [place] Urine Protein Urine Glucose (UA) Urine Ketones Urine Occult Blood Urine Nitrate Urine Bilirubin Urine Urobilinogen Ur Leukocyte Esterase Urine RBC Urine WBC Ur Squamous Epith Cells Urine Bacteria Ur Culture Indicated? Salicylates U Opiates 300ng/mL cut Negative Ur Oxycodone Screen Negative Urine Methadone Screen Negative Acetaminophen Ur Barbiturates Screen Negative U Tricyclic Antidepress Negative Ur Phencyclidine Scrn Negative Ur Amphetamines Screen Negative U Methamphetamines Scrn Negative Ur MDMA Scrn (Ecstasy) Negative U Benzodiazepines Scrn Negative Urine Cocaine Screen Negative U Marijuana (THC) Screen Negative Ethyl Alcohol Assessment & Plan Assessment & Plan narrative: This is a 69-year-old female patient brought in by the family for altered mental status onset today. 1. Metabolic encephalopathy, multifactorial, present on admission, active -at baseline patient will be interactive with periods of isolation and altered behaviors. -patient found today nonverbal staring at the wall by family members.. -CT of the head is obtained which finds no acute intracranial processes. -etiology includes: Hyponatremia with a serum sodium of 123. Acute urinary tract infection with urine positive for leukocyte esterase, WBCs and many bacteria. Urinary tract infection, acute, present on admission, active. -patient mention no symptoms to family members. No reports of frequency burning urgency or hematuria noted. -urinalysis reveals leukocyte esterase, WBCs and many bacteria, urine is cultured. White count is normal at 8.4. -ordered ceftriaxone 1 g IV daily. -will follow infectious markers. Hyponatremia, acute, present on admission, active. -Sodium level on admission labs is 123. -Most likely related to dehydration with a BUN creatinine ratio 26.5. -Will slowly rehydrate with normal saline 100 cc/hour and recheck chemistries in the morning. Elevated creatinine, likely acute kidney injury secondary to dehydration, present on admission, active. -BUN is 45 with an elevated creatinine of 1.7 with an EGFR of 29.6. BUN creatinine ratio is 26.5. No labs are available for comparison. -Ordered normal saline 100 cc/hour. -Will evaluate renal function serial labs for improvement to determine if acute or chronic kidney dysfunction. Diabetes type 2 with hyperglycemia, present on admission, active. -Patient with elevated blood sugar of 307 on admission. -Patient will be rehydrated with normal saline 100 cc/hour. -glucose checks a.c. and HS. -Will continue patient's home regimen of Lantus 6 units subcu twice daily. -Correctional insulin low-dose range. VTE prophylaxis: SCDs, Lovenox renal dose IVF: Normal saline 100 cc/hour Diet: Consult medium carbohydrate The patient is admitted to the hospital with diabetes and dehydration resulting in hyponatremia and metabolic encephalopathy. The patient will be admitted as an inpatient with expected length of stay to be greater than 2 midnights. Scores GCS Joann coma scale eye opening: Spontaneous Joann coma scale verbal response: None Joann coma scale motor response: Obey commands [place] coma scale total score: 11
[2019-04-17] MEDS: INSULIN ASPART 100 UNIT/ML INSULN PEN SUBCUT ×5 (02:23→21:54)
[2019-04-17] MEDS: SODIUM CHLORIDE 0.9% 1,000 ML 100 ML IV ×2 (02:24→12:54)
--- NOTE | 2019-04-17 05:36 | PC.NURSE ---
Addendum entered by Deborah Salcido R.N. 04/17/19 06:21: Pt frequently pulling at lines; lines secured again with Coban and taped Original Note: Pt admitted to unit as alert to name only; she was unsure of her year of , time, situation. Pt speaks Samoan ([employer]) and her carlos alberto Cuello translated for me. Vitals stable, tolerating room air. Temp spiked to 99.3F with some rigors. Reported to FLORINDA Hardin, holding off on tylenol admin for now. NS@100mL/hr Fingerstick at 0200 was 259; 2units Novolog given Pt skin intact. Has dark fingernails and toenails. Voiding on BSC; foul smelling urine. Pt very weak upon standing up. Her feet tend to slide even with non-skid socks on. Tele: NSR. Denies chest pain
[2019-04-17 06:01] LABS: Add Manual Diff / Slide Review NO; Basophils Absolute Auto 0 /uL (0-100); Basophils Percent Auto 0.2 % (0-2); Eosinophils Absolute Auto 0 /uL (0-450); Eosinophils Percent Auto 0.2 % (2-4); Hematocrit 34.2 % (36-46); Hemoglobin 11.6 g/dL (12.0-16.0); Lymphocytes Absolute Auto 500 /uL (1100-4500); Lymphocytes Percent Auto 6.8 % (25-40); Mean Corpuscular Hemoglobin 30.6 PG (26-34); Mean Corpuscular Volume 90.2 fL (80-100); Monocytes Absolute Auto 500 /uL (0-900); Monocytes Percent Auto 7.3 % (3-14); Neutrophils Absolute Auto 6300 /uL (1500-7000); Neutrophils Percent Auto 85.5 % (50-75); Platelet Count 256 X10^3/uL (150-400); Red Blood Cell Count 3.79 X10^6/uL (4.0-5.2); Red Cell Distribution Width 13.2 % (11.6-14.8); White Blood Cell Count 7.4 X10^3/uL (4.5-11.0)
[2019-04-17 06:06] LABS: BUN Creatinine Ratio 29.1 (6-22); Blood Urea Nitrogen 32 mg/dL (7-17); Calcium 9.4 mg/dL (8.4-10.2); Carbon Dioxide 27 mmol/L (22-32); Chloride 95 mmol/L (98-107); Glucose 142 mg/dL (80-110); HEMOLYSIS < 15 (0-50); Magnesium 1.5 mg/dL (1.6-2.3); Potassium 4.2 mmol/L (3.4-5.1); Sodium 131 mmol/L (137-145)
[2019-04-17 06:43] LABS: Procalcitonin 7.97 ng/mL (<0.5)
[2019-04-17] MEDS: ASPIRIN EC 81 MG TABLET PO (09:10)
[2019-04-17] MEDS: ENOXAPARIN 30 MG/0.3 ML SYRINGE SUBCUT (09:10)
[2019-04-17] MEDS: INSULIN GLARGINE 100 UNIT/ML 3ML PEN 6 UNIT SUBCUT ×2 (09:10→21:55)
[2019-04-17 11:56] LABS: Add Manual Diff / Slide Review NO; Basophils Absolute Auto 0 /uL (0-100); Basophils Percent Auto 0.3 % (0-2); Eosinophils Absolute Auto 0 /uL (0-450); Hematocrit 32.3 % (36-46); Hemoglobin 11.2 g/dL (12.0-16.0); Lymphocytes Absolute Auto 600 /uL (1100-4500); Lymphocytes Percent Auto 7.5 % (25-40); Mean Corpuscular HGB Conc 34.6 % (30-36); Mean Corpuscular Hemoglobin 31.5 PG (26-34); Mean Corpuscular Volume 91.1 fL (80-100); Monocytes Absolute Auto 700 /uL (0-900); Monocytes Percent Auto 8.6 % (3-14); Neutrophils Absolute Auto 6900 /uL (1500-7000); Neutrophils Percent Auto 83.6 % (50-75); Platelet Count 245 X10^3/uL (150-400); Red Blood Cell Count 3.55 X10^6/uL (4.0-5.2); Red Cell Distribution Width 13.7 % (11.6-14.8); White Blood Cell Count 8.2 X10^3/uL (4.5-11.0)
[2019-04-17 12:12] LABS: BUN Creatinine Ratio 33.3 (6-22); Blood Urea Nitrogen 30 mg/dL (7-17); Calcium 9.1 mg/dL (8.4-10.2); Carbon Dioxide 25 mmol/L (22-32); Chloride 95 mmol/L (98-107); Estimated Glomerular Filt Rate > 60.0 mL/min (>60); Glucose 226 mg/dL (80-110); HEMOLYSIS < 15 (0-50); Magnesium 1.6 mg/dL (1.6-2.3); Potassium 3.9 mmol/L (3.4-5.1); Sodium 131 mmol/L (137-145)
--- NOTE | 2019-04-17 16:14 | PC.NURSE ---
Addendum entered by Althea North R.N. 04/17/19 16:41: At time of fall, pt did have yellow gown on, red hospital socks on, bed alarm was on, call light was within reach. Original Note: Day Shift- Pt alert, language barrier, no language therapist available, no family available at bedside. Pt soft spoken, able to say her first and last name with prompting. States her birthday month as ... when asked if her birthday is in January. Hard to redirect/focus. Pt is pleasant, smiles. Pulls off telemetry leads, tugs at PIV, takes off gown and blankets. Moves self in bed. Pt was found by WIRE TAPER this AM with pt on her hands and knees in bed, bed alarm was on. Pt unable to use call light due to language barrier and orientation, frequent checks done by this RN and WIRE TAPER. Pt's family member Sharri called by unit educator at 1005, message left for family to answer questions and come sit with pt. No return phone call. Bed alarm on the most sensitive setting was on throughout shift. At approx 1100, [facility] staff member Dorothea walked by pt's room and found pt to left side of bed on the floor on her hands and knees. Dorothea notified MARIO Scott who came to room and called this RN. At the time of this RN's arrival, pt was sitting on end of bed with staff in room. Pt had Calf SCD's on still, bed alarm was not alarming. Head to Toe skin check done, no new skin issues. Pt had already prior to fall dusky/discolored nail beds to fingers and toes. And discolored dry knees. When motioned if pt had hit her head, pt stated no and shook her head from left to right back and forth. When pushing onto both knees, pt had grimacing with pushing on right knee. No skin injury noted. Initial VSS, BP slightly lower than previous at 102/61, pulse 80, O2 sat 99% on RA. Vital signs done Q1hr for 4 hours, VS remained stable. RN Coordinator notified of unwitnessed fall around 1115 and came to pt's room. Dr. Boykin notified of pt's fall around 1117 and made aware of pt's right knee was tender when this RN touching the right knee. No new orders at this time. BG checked for 239 at 1120. The pt's bed was switched for another bed and bed alarm placed on the most sensitive setting again. Call light within reach.
--- NOTE | 2019-04-17 19:12 | PC.NURSE ---
Addendum entered by Caroline Rahman R.N. 04/17/19 23:50: Family arrived at approx 2130. Brii states pt is at her baseline. She was able to help assess pt. Pt remains confused and disoriented. The Family member will be rooming in for the night is deaf but Brii confirms she will stay awake to help monitor pt to keep her safe. Original Note: Assumed care of pt at 1500. Pt resting in bed during bedside hand-off. Only able to speak a few words in Sinhala; able to make basic needs known by pointing at objects and states no when asked if in pain. No dressmaking teacher available that speaks her language. Msg left for dtr Brii to help with communication and info on health history/current medications. Awaiting return call. Pulls at lines and telemetry, attempts to get out of bed. Sitter assigned for this shift. Pt is able to be distracted with pillow cases/wash clothes. Ambulates in halls frequently with sitter. Steady on feet but needs directions r/t limited vision and confusion.
[2019-04-18] VITALS (9 sets, daily range): BP systolic 86–131; BP diastolic 42–72; PULSE 68–75; RESP 16–22; TEMP 36.1–38.5; O2SAT 94–99
--- NOTE | 2019-04-18 00:29 | PC.NURSE ---
Addendum entered by Ginger Alcaraz R.N. 04/18/19 06:08: Notified CORE DRILLING SUPERVISOR of patient's BP (104/42), reported no concerns and no new orders. Original Note: Shift note: Language barrier impacts ability to assess patient for orientation status, responds to her name. Also impacts ability to communicate teaching on cook night as no public health director is available for patient's [place] language. Patient can follow simple commands. Unable to assess patient verbally for SOB or chest pain, patient does not appear to be short of breath and has respirations of 18 to auscultation and WNL saturations on RA. Does not appear to be experiencing pain, FLACC 0 based on observation, is resting comfortably in bed. Patient does not appear to bed nauseated, no vomiting witness. Bowel tones active. Weakness with ambulation, requiring assistance from AUTO SERVICE MECHANIC and family member who is present at the bedside to assist staff as patient had unwitnessed fall on day shift. Family member only understands [place] via lip reading as she is deaf, does according to family member Sharri know Serbian sign language. Bed alarm is on for safety, door to remain opened or cracked.
[2019-04-18] MEDS: ACETAMINOPHEN 325 MG TABLET 650 MG PO ×2 (00:37→09:01)
[2019-04-18 06:08] LABS: Add Manual Diff / Slide Review NO; Basophils Absolute Auto 0 /uL (0-100); Basophils Percent Auto 0.4 % (0-2); Eosinophils Absolute Auto 0 /uL (0-450); Eosinophils Percent Auto 0.2 % (2-4); Hematocrit 28.6 % (36-46); Hemoglobin 9.7 g/dL (12.0-16.0); Lymphocytes Absolute Auto 800 /uL (1100-4500); Mean Corpuscular HGB Conc 33.9 % (30-36); Mean Corpuscular Hemoglobin 30.6 PG (26-34); Mean Corpuscular Volume 90.2 fL (80-100); Monocytes Absolute Auto 800 /uL (0-900); Monocytes Percent Auto 13.2 % (3-14); Neutrophils Absolute Auto 4700 /uL (1500-7000); Neutrophils Percent Auto 73.2 % (50-75); Platelet Count 218 X10^3/uL (150-400); Red Blood Cell Count 3.17 X10^6/uL (4.0-5.2); Red Cell Distribution Width 13.2 % (11.6-14.8); White Blood Cell Count 6.4 X10^3/uL (4.5-11.0)
[2019-04-18 06:12] LABS: BUN Creatinine Ratio 26.3 (6-22); Blood Urea Nitrogen 21 mg/dL (7-17); Calcium 8.3 mg/dL (8.4-10.2); Carbon Dioxide 25 mmol/L (22-32); Chloride 94 mmol/L (98-107); Estimated Glomerular Filt Rate > 60.0 mL/min (>60); Glucose 114 mg/dL (80-110); HEMOLYSIS < 15 (0-50); Potassium 3.2 mmol/L (3.4-5.1); Sodium 129 mmol/L (137-145)
[2019-04-18] MEDS: INSULIN GLARGINE 100 UNIT/ML 3ML PEN 6 UNIT SUBCUT (09:00)
[2019-04-18] MEDS: ASPIRIN EC 81 MG TABLET PO (09:01)
[2019-04-18] MEDS: POTASSIUM CHLORIDE 20 MEQ TAB 40 MEQ PO (09:02)
[2019-04-18] MEDS: ENOXAPARIN 30 MG/0.3 ML SYRINGE SUBCUT (09:02)
--- NOTE | 2019-04-18 11:35 | P.DS_ITS ---
History of Present Illness History of Present Illness Date Patient Seen: 04/18/19 Chief complaint: latisha dahl,family says she fainted Narrative: Miss Felicitas Smalls is a 69-year-old with a past medical history significant for diabetes, hyperlipidemia and dementia who presen ts to the ER for altered mental status. The patient is here with her daughter Khushboo who facilitates history taking is the patient speaks the [place] language of [facility]. She is the primary caregiver for her mother and received a call from family members that her mother was not herself. They describe weakness, lethargy, increased confusion and staring off into space. Patient does have an underlying history of dementia and will at times isolate and have reduced interactions but not to this extent. The daughter reports that the patient was in her usual state health yesterday. She reports no complaints of fevers or chills however complaint of chills today. She has had no complaints of headaches or dizziness nasal congestion sore throat. She has had no chest pain or palpitations, shortness of breath cough or wheezing. She denies abdominal pain heartburn or nausea. The daughter helps with subjective evaluation as the patient is unable to provide the information at this time due to altered mental status. Upon arrival to the ER the patient has a temperature 97.3?, heart rate of 65, blood pressure of 82/42, respirations 16 saturating 100% on room air. CT of the head obtained which finds no acute intracranial processes. Laboratory analysis shows a white count of 8.4, hemoglobin 9.4, hematocrit of 27.5 and platelets of 227. Her coagulation studies are within normal limits and she is found to be hyponatremic at 123 with a potassium of 4.3. She has a BUN of 45 and creatinine 1.7. Her nonfasting glucose is 307. She has a bilirubin is 0.2, AST of 67, ALT of 39 and alkaline phosphatase of 63. She has a total CK of 141, CK-MB of 1.71. Her troponin is less than 0.012. She has a although TSH at 0.39. Urine tox is negative and urinalysis reveals positive leukocyte esterase white blood cells with many bacteria and is reflex to culture. The patient is admitted to the medicine service for altered mental status, hyponatremia and UTI and possible acute kidney injury. Discharge Providers Provider Date of admission: 04/17/19 00:55 Discharge Date: 04/18/19 Consults: 04/17/19 01:46 Consult to Dietitian, Adult Routine Comment: Reason For Exam: Diabetes, malnourished Consult to Discharge Planning Routine Comment: Discharge provider: Brenda Boykin MD Summary Hospital Course Discharge Diagnosis: 1. Acute metabolic encephalopathy 2. Hyponatremia 3. Urinary tract infection 4. Dementia 5. Type 2 diabetes 6. Hypokalemia 7. Normocytic anemia Hospital Course: Patient was admitted to the hospital for acute mental status changes. She was found to have profound hyponatremia. Patient was given IV saline with improvement of her sodium. For stay are sodium was 132. Repeat was 129. Patient also was found to have urinary tract infection due to E coli. It is sensitive to levofloxacin. Patient was initially treated with ceftriaxone. According to the niece the patient does drink excessive amounts of water at home. This likely contributed to her hyponatremia. We will instruct the patient and her family to limit her fluid intake, free water to no more than 1500 cc per day. The daughter/niece reports the patient is back to her baseline. She was able to ambulate without difficulty. She was deemed appropriate for discharge and arrangements were made for her to be discharged home. Status at Discharge Cognitive/behavioral status at discharge: at baseline, confused Functional status at discharge: independent ambulation Overall status at discharge: patient is back to baseline Time Spent with Patient Time spent: Less than 30 minutes Exam Vital Signs (past 8 hours): - 04/18/19 05:25 04/18/19 07:25 04/18/19 08:00 Temperature 98.1 F 97.0 F L Pulse Rate 75 69 Respiratory Rate 22 16 Blood Pressure 102/42 L 114/53 L Pulse Oximetry 99 94 94 04/18/19 09:08 Temperature Pulse Rate Respiratory Rate Blood Pressure Pulse Oximetry 98 Oxygen Delivery Method Room Air Oxygen Flow Rate 0 Narrative Exam Narrative: Pleasant elderly female in no obvious distress Left eye with dense cataract Lungs: clear to auscultation CV:RRR nlSl S2 2/6 RASHIDA Abd: soft/ non tender/ non distended Ext: no edema Objective Labs Result Diagrams: 04/18/19 05:40 04/18/19 05:40 Labs: Laboratory Results - last 24 hr 04/17/19 04/17/19 04/18/19 11:36 11:36 05:40 WBC 8.2 6.4 RBC 3.55 L 3.17 L Hgb 11.2 L 9.7 L Hct 32.3 L 28.6 L MCV 91.1 90.2 MCH 31.5 30.6 MCHC 34.6 33.9 RDW 13.7 13.2 Plt Count 245 218 Neut % (Auto) 83.6 H 73.2 Lymph % (Auto) 7.5 L 13.0 L Mckean % (Auto) 8.6 13.2 Eos % (Auto) 0.0 L 0.2 L Baso % (Auto) 0.3 0.4 Neut # (Auto) 6900 4700 Lymph # (Auto) 600 L 800 L Mckean # (Auto) 700 800 Eos # (Auto) 0 0 Baso # (Auto) 0 0 Sodium 131 L Potassium 3.9 Chloride 95 L Carbon Dioxide 25 BUN 30 H Creatinine 0.90 Estimated GFR > 60.0 BUN/Creatinine Ratio 33.3 H Glucose 226 H Calcium 9.1 Magnesium 1.6 04/18/19 05:40 WBC RBC Hgb Hct MCV MCH MCHC RDW Plt Count Neut % (Auto) Lymph % (Auto) Mckean % (Auto) Eos % (Auto) Baso % (Auto) Neut # (Auto) Lymph # (Auto) Mckean # (Auto) Eos # (Auto) Baso # (Auto) Sodium 129 L Potassium 3.2 L Chloride 94 L Carbon Dioxide 25 BUN 21 H Creatinine 0.80 Estimated GFR > 60.0 BUN/Creatinine Ratio 26.3 H Glucose 114 H D Calcium 8.3 L Magnesium Discharge Plan Discharge Plan Patient Disposition: Home Discharge orders & Medications Prescriptions: New levofloxacin 250 mg tablet 250 mg PO DAILY Qty: 7 RF: 0 Continued aspirin [Adult Low Dose Aspirin] 81 mg Tablet,Delayed Release (Dr/Ec) 81 mg 4-6XD RF: 0 simvastatin RF: 0 metformin 500 mg Tablet 500 mg BID RF: 0 Lantus U-100 Insulin 100 unit/mL Solution 6 unit SUBCUT BID RF: 0 Adults Multivitamin RF: 0 Discharge Health Status Health Concerns: Patient needs to limit herself to no more than 1500 cc of free water daily. Diet/Activity/Treatments Diet: Diet as Tolerated Diet comment: 1500 cc fluid restriction Activity: as tolerated
[2019-04-18] MEDS: INSULIN ASPART 100 UNIT/ML INSULN PEN SUBCUT (12:39)
[2019-04-18] MEDS: SODIUM CHLORIDE 0.9% 1,000 ML 500 ML IV (12:41)
--- NOTE | 2019-04-18 13:31 | PC.NURSE ---
Addendum entered by Althea North R.N. 04/18/19 14:18: NS 500 ml bolus complete at 1405. Bp rechecked for 96/46, pulse 68 while pt sitting in recliner chair. Spoke with Dr. Boykin at 1418, given updated BP as above, Made aware lactate 1.5 and Mg 1.5, Procalcitonin is pending. Verbal order to perform Orthostatic BP/Pulse X1. Original Note: Day Shift- BP taken for 86/49 and pulse 68 at 1153. Through pt's tomy Harrell interpretation, pt denied dizziness or light-headedness. Spoke with Dr. Boykin at 1230, Dr placed order for one time 500ml bolus NS over 1 hour, not 1000ml bolus as entered in eMAR. After bolus complete, recheck BP and pulse. At 1330, pt sittng up in chair with chair alarm on, folding towels and pillow cases for distraction. Pt's tomy Harrell and another female family member in room.
[2019-04-18 13:48] LABS: Lactate (Lactic Acid) 1.5 mmol/L (0.7-2.1); Magnesium 1.5 mg/dL (1.6-2.3)
[2019-04-18 14:40] LABS: Procalcitonin 5.39 ng/mL (<0.5)
--- NOTE | 2019-04-18 15:13 | CM.DANOTE ---
Per MD and RN during bedside rounds and tomy Cuello present, pt's potassium has improved and provided some diabetes education with family and pt medically stable to d/c home today and MD recommending HH RN for further follow up with pt on med management and vitals and family agreeable. Pt pleasantly confused with dementia at baseline and deaf but can read lips and understand a little [place] but mostly tomy Cuello interprets as she speaks pt's pala language from the [facility] [place] and pt can read nicaleb's lips. Khushboo confirms that pt resides with them and is steady with independent ambulation at home and is pleasantly confused at baseline and needs some assist and reminders on ADL's. SW discussed HH services and frequency and provided HH Choice List and preference is [facility] and pt has no hx of HH or SNF. Tomy Cuello also confirms that currently pt is not enrolled in Medicare and she would be interested in information on how to enroll in Medicare. LULU provided the brochure for [facility] and the [facility] brochure and tomy very thankful and confirms she is agreeable with transporting pt home later today. LULU called [facility] and confirmed that since currently pt only really needs HH RN, maybe a little PT then they can likely accept her straight Medicaid without barriers and LULU faxed clinicals, d/c summary, HH orders to review and waiting for MD to complete F2F. Plan: Patient to d/c home via tomy Cuello's POV and [facility] to follow after discharge. Family has information towards attempting to get pt on Medicare. ABBY Rogers Discharge Planning/Care Management CM Discharge Assessment Start: 04/18/19 15:11 Freq: Status: Active Protocol: Document 04/18/19 15:11 BF (Rec: 04/18/19 15:13 BF [id number]) Discharge Planning Assessment Assigned Kindergarten Prep Teacher ABBY Low Advance Directives? No Advance Directives on File No History Provided By Family Member,Medical Record Has Patient been admitted in last 30 No days? Prior Living Arrangements House Household Members family Type of transporation used prior to Relies on Others admit Independent with ADL's No Is patient alert and oriented? No Needs Assistance With Meal Prep,Managing Medications ,Home Chores / Shopping Caregiver for Another No Patient/Family Preference Home with Home Health Barriers to Discharge No Discharge Plan Home with Home Health Transportation Arrangement Family bedside and agreeable to provide transport Referrals Initiated Home Health If patient plan is home with home health Yes : Has signed face to face form been completed? Medicare Choice List Provided Yes SNF/HH Preference [facility] Has Agency SNF been contacted Yes Whiteboard Updated in Patient Room with Yes name and ext. # of Kindergarten Prep Teacher Review Status In Process Please Provide Date Initial DC 04/18/19 Assessment Was Performed Next Review Type Continued Stay Review
[2019-04-18] MEDS: MAGNESIUM OXIDE 400 MG TABLET PO (16:55)
--- NOTE | 2019-04-18 17:29 | PC.NURSE ---
Assumed care of pt at 1500. Pt sitting up in chair. Orthostatic VS obtained and notified MD of results. Per MD pt is cleared to D/C home after PO replacement of Mag Ox. Verbal and written D/C instructions given to pt with assistance from Family member Brii. Pt and Brii verbalized understanding of all d/c instructions including fluid restriction and antibiotics to be taken. IVs removed. Tele removed. Pt trans to w/c. Escorted out by family and FIREBREAK CUTTER to private vehicle. Pt left in stable condition with all personal belongings.
== END 2019-04-18 17:15 | disposition home health service (06) | DRG 640 ==
LOC: ED 19:23 → AC 04-17 06:15
PROVIDERS: Internal Medicine; Admitting Provider Nurse Practitioner Adult Health; Emergency Provider Emergency Medicine; Visit Provider Nurse Practitioner Adult Health
DX: E87.1 Hypo-osmolality and hyponatremia (principal); G93.41 Metabolic encephalopathy; R40.2212 Coma scale, best verbal response, none, at arrival to emergency department; N39.0 Urinary tract infection, site not specified; N17.9 Acute kidney failure, unspecified; E86.0 Dehydration; E11.65 Type 2 diabetes mellitus with hyperglycemia; E87.6 Hypokalemia; F03.90 Unspecified dementia, unspecified severity, without behavioral disturbance, psychotic disturbance, mood disturbance, and anxiety; R40.2362 Coma scale, best motor response, obeys commands, at arrival to emergency department; R40.2142 Coma scale, eyes open, spontaneous, at arrival to emergency department; B96.20 Unspecified Escherichia coli [E. coli] as the cause of diseases classified elsewhere; E78.5 Hyperlipidemia, unspecified; Z79.4 Long term (current) use of insulin
CPT/HCPCS: 36415; 70450; 80048; 80053; 80305; 80320; 80329; 81001; 82550; 82553; 82962; 83605; 83735; 83930; 84145; 84146; 84443; 84484; 85025; 85610; 85730; 87040; 87077; 87086; 87186; 96361; 96365; 99284; G0480; J1650

== ENCOUNTER 2020-04-16 09:04 | Inpatient (IN) | payer MEDICAID, SELFPAY ==
[2019-04-17 01:09] VITALS: BMI 18.3
[2020-04-16] VITALS (19 sets, daily range): BP systolic 85–140; BP diastolic 43–103; PULSE 69–105; RESP 11–22; TEMP 36.1–37.8; O2SAT 97–100; BMI 20.5
--- NOTE | 2020-04-16 09:48 | ED.FEMALEGU ---
HPI - Female Genitourinary General Chief complaint: Urogenital-Female Stated complaint: diabetic, UTI Sx Time Seen by Provider: 04/16/20 09:12 Source: patient Mode of arrival: Wheelchair Limitations: no limitations History of Present Illness HPI Narrative: Patient is a 70-year-old female history of diabetes dementia hyperlipidemia hyponatremia presenting today with a concern for UTI. Her niece is her primary transitions rn care coordinator but not her DPOA. She states that over the last 2 days she has had weakness and knees has noticed foul-smelling urine. She has previously had UTIs and hyponatremia. She was admitted almost exactly a year ago with hyponatremia. Blood pressure is noted to be low with a systolic in this [id number] is previous blood pressures are higher than that. Her niece is a primary historian patient does speak a different language but seems to understand some [place]uvian she is able to answer some questions and follow commands MD Complaint: UTI Onset (ago): day(s) (2) Severity: similar to previous episodes Related Data Home Medications Medication Instructions Recorded Confirmed Lantus U-100 Insulin 6 unit SUBCUT BID 04/17/19 04/16/20 aspirin [Adult Low Dose Aspirin] 81 mg PO QAM 04/17/19 04/16/20 metformin 500 mg BID 04/17/19 04/16/20 lisinopril 10 mg PO QAM 04/16/20 04/16/20 multivitamin [Daily Multivitamin] 1 tab PO QAM 04/16/20 04/16/20 simvastatin 20 mg PO BEDTIME 04/16/20 04/16/20 Allergies Allergy/AdvReac Type Severity Reaction Status Date / Time No Known Drug Allergies Allergy Verified 04/18/19 00:16 Review of Systems Review of Systems ROS Unobtainable: All systems reviewed & are unremarkable except as noted in HPI and below Constitutional Constitutional: Reports fatigue and Reports weakness Eyes Eyes: Denies change in vision, Denies eye discharge, Denies irritation and Denies loss of vision Cardiovascular Cardiovascular: Denies chest pain, Denies irregular heart rhythm, Denies lightheadedness, Denies palpitations, Denies dyspnea, Denies dyspnea on exertion and Denies orthopnea Respiratory Respiratory: Denies cough, Denies dyspnea, Denies dyspnea on exertion and Denies wheezing Gastrointestinal Gastrointestinal: Denies abdominal pain, Denies change in bowel habits, Denies diarrhea, Denies nausea and Denies vomiting Genitourinary Genitourinary: Reports as per HPI Genitourinary: Reports as per HPI Musculoskeletal Musculoskeletal: Denies back pain and Reports myalgias Integumentary/Breasts Skin/Breast: Denies pruritus, Denies erythema, Denies rash and Denies wounds Neurologic Neurologic: Denies loss of vision and Reports weakness Endocrine Endocrine: Reports fatigue and Denies palpitations Allergic/Immunologic Allergic/Immunologic: Denies wheezing Patient History Medical History (Updated 04/16/20 @ 11:21 by Ana Anne DO) Dementia Diabetes Hyponatremia Surgical History H/O enucleation of left eyeball Family History Father Diabetes mellitus Smoker Mother Diabetes mellitus Brother Diabetes mellitus Sister Heart attack Daughter Diabetes mellitus Substance Use Type: does not use Exam Initial Vital Signs Initial Vital Signs: Vital Signs Temperature 98.0 F 04/16/20 09:18 Pulse Rate 105 H 04/16/20 09:18 Respiratory Rate 14 04/16/20 09:18 Blood Pressure 91/64 04/16/20 09:18 Pulse Oximetry 98 04/16/20 09:18 GENERAL: Small frail week alert 70-year-old female and in no acute distress. HEENT: Head atraumatic,EOMI, pupils reactive, face symmetric, moist mucous membranes CARDIOVASCULAR: Regular rate and rhythm without murmurs, rubs or gallops. RESPIRATORY: Breath sounds equal bilaterally, no wheezes rales or rhonchi. ABDOMEN: Soft, nontender. Normoactive bowel sounds all 4 quadrants. No guarding or rebound. EXTREMITIES: Normal range of motion, no clubbing or edema. Neurovascularly intact NEUROLOGICAL: No gross deficits bioinformatics scientist strength equal bilaterally SKIN: Warm, dry, no laceration, no petechiae, no rashes or lesions. Course Orders Ordered: ED Orders 04/16/20 09:48 Urinalysis and Microscopic Stat Urine Culture Stat 04/16/20 09:57 EKG-12 Lead Stat 04/16/20 10:03 XR chest 1V Stat EKG-12 Lead Stat 04/16/20 10:08 Complete Blood Count AUTO DIFF Stat Comprehensive Metabolic Panel Stat Lactate (Lactic Acid) Stat Lipase Stat Partial Thromboplastin Time Stat Procalcitonin Stat Prothrombin Time INR Stat Troponin & CK Cardiac Panel Stat 04/16/20 10:24 Blood Culture Stat 04/16/20 10:26 COVID19 Stat Acetaminophen (Acetaminophen 325 Mg Tablet) 650 mg PO Q6HR PRN PRN Reason: Fever/Mild Pain (1-3) Al Hydrox/Mg Hydrox/Simethicone (Mag Hydrox/Alum/Simeth 30 Ml Udc) 30 ml PO Q6HR PRN PRN Reason: Dyspepsia Dextrose (Dextrose 50 % In Water 25 Gm/50 Ml Syringe) 25 gm IV PRN PRN; Protocol PRN Reason: Hypoglycemia Docusate Sodium (Docusate 100 Mg Capsule) 100 mg PO BID ISAI Heparin Sodium (Porcine) (Heparin 5,000 Unit/Ml Vial) 5,000 unit SUBCUT BID ISAI Sodium Chloride (Normal Saline 0.9%) 1,000 mls @ 150 mls/hr IV BOLUS ONE Stop: 04/16/20 17:09 Last Infusion: 04/16/20 12:24 Dose: 100 mls/hr Documented by: Infusion: 04/16/20 10:49 Dose: 100 mls/hr Documented by: Admin: 04/16/20 10:33 Dose: 150 mls/hr Documented by: KELTON Sodium Chloride (Normal Saline 0.9%) 1,000 mls @ 150 mls/hr IV CONT ISAI Last Admin: 04/16/20 12:47 Dose: 150 mls/hr Documented by: LIDIA Insulin Aspart (Insulin Aspart 100 Unit/Ml Insuln Pen) 0 unit SUBCUT ACHS ISAI; Protocol Insulin Glargine (Insulin Glargine 100 Unit/Ml 3ml Pen) 10 unit SUBCUT BEDTIME ISAI Magnesium Hydroxide (Magnesium Hydroxide 30 Ml Udc) 30 ml PO DAILY PRN PRN Reason: Constipation Naloxone HCl (Naloxone 0.4 Mg/Ml Vial) 0.2 mg IV Q2MIN PRN PRN Reason: Opiate Reversal Ondansetron HCl (Ondansetron 4 Mg/2 Ml Inj) 4 mg IV Q8HR PRN PRN Reason: Nausea And Vomiting Discontinued Medications Ceftriaxone Sodium/Dextrose (Rocephin) 1 gm in 50 mls @ 100 mls/hr IV NOW ONE Stop: 04/16/20 10:40 Last Infusion: 04/16/20 11:10 Dose: 0 mls/hr Documented by: Admin: 04/16/20 10:32 Dose: 100 mls/hr Documented by: KELTON Vital Signs Vital signs: Vital Signs - 8 hr 04/16/20 09:18 04/16/20 09:52 04/16/20 10:00 Temperature 98.0 F Pulse Rate 105 H 74 74 Respiratory Rate 14 22 Blood Pressure 91/64 85/48 L Pulse Oximetry 98 100 99 04/16/20 10:15 04/16/20 10:30 04/16/20 10:45 Temperature Pulse Rate 73 72 72 Respiratory Rate 15 14 13 Blood Pressure 93/52 L 99/52 L 102/56 L Pulse Oximetry 97 98 99 04/16/20 11:00 04/16/20 11:15 Temperature Pulse Rate 72 70 Respiratory Rate 12 13 Blood Pressure 102/56 L 97/53 L Pulse Oximetry 99 99 MDM - Female Genitourinary Lab Data Attestation: I reviewed the patient's lab results. Result diagrams: 04/16/20 10:08 04/16/20 10:08 Labs: Lab Results 04/16/20 04/16/20 04/16/20 Range/Units 09:48 10:08 10:08 WBC 13.1 H (4.5-11.0) X10^3/uL RBC 2.88 L (4.0-5.2) X10^6/uL Hgb 9.1 L (12.0-16.0) g/dL Hct 27.0 L (36-46) % MCV 93.7 (80-100) fL MCH 31.5 (26-34) PG MCHC 33.6 (30-36) % RDW 14.4 (11.6-14.8) % Plt Count 104 L (150-400) X10^3/uL Neut % (Auto) Not Reportable Lymph % (Auto) Not Reportable Logan % (Auto) Not Reportable Eos % (Auto) Not Reportable Baso % (Auto) Not Reportable Lymph # (Auto) Not Reportable Logan # (Auto) Not Reportable Baso # (Auto) Not Reportable Total Counted 100 Seg Neutrophils % 81.0 H (38-70) % Band Neutrophils % 6.0 (3-7) % Lymphocytes % (Manual) 3.0 L (25-45) % Atypical Lymphs % 4.0 H ( - 0) % Monocytes % (Manual) 6.0 (2-11) % Neutrophils # (Manual) 20195 H (0830-2776) /uL RBC Morphology Normal morphology PT 14.4 H (10.1-12.7) SECONDS INR 1.2 (0.9-1.3) APTT 32 (26.4-36.2) SECONDS Sodium (137-145) mmol/L Potassium (3.4-5.1) mmol/L Chloride (98-107) mmol/L Carbon Dioxide (22-32) mmol/L BUN (7-17) mg/dL Creatinine (0.52-1.04) mg/dL Estimated GFR (>60) mL/min BUN/Creatinine Ratio (6-22) Glucose (80-110) mg/dL Lactate (0.7-2.1) mmol/L Calcium (8.4-10.2) mg/dL Total Bilirubin (0.2-1.3) mg/dL AST (14-36) IU/L ALT (<35) IU/L Alkaline Phosphatase (38-126) U/L Total Creatine Kinase (30-135) U/L CK-MB (CK-2) CK-MB (CK-2) Rel Index Troponin I (0.01-0.034) ng/mL Total Protein (6.3-8.2) g/dL Albumin (3.5-5.0) g/dL Globulin (1.7-4.1) g/dL Albumin/Globulin Ratio (1.0-2.8) Lipase (23-300) U/L Procalcitonin (<0.5) ng/mL Urine Color Yellow Urine Appearance Sl cloudy Urine pH 7.0 (4.5-8.0) Ur Specific Kirkland 1.010 (1.000-1.035) Urine Protein 1+ H (Negative) Urine Glucose (UA) Negative (Negative) g/dL Urine Ketones Negative (NEGATIVE) Urine Occult Blood 1+ H (Negative) Urine Nitrate Negative (Negative) Urine Bilirubin Negative (NEGATIVE) Urine Urobilinogen 0.2 (0.2) E.U./dL Ur Leukocyte Esterase 2+ H (NEGATIVE) Urine RBC 1-5/hpf (0-5/HPF) Urine WBC 10-30/hpf H (0-5/HPF) Urine Bacteria Many (>30) H (None) Ur Culture Indicated? Specimen cultured SARS-CoV-2 (PCR) (Negative) 04/16/20 04/16/20 04/16/20 Range/Units 10:08 10:08 10:26 WBC (4.5-11.0) X10^3/uL RBC (4.0-5.2) X10^6/uL Hgb (12.0-16.0) g/dL Hct (36-46) % MCV (80-100) fL MCH (26-34) PG MCHC (30-36) % RDW (11.6-14.8) % Plt Count (150-400) X10^3/uL Neut % (Auto) Lymph % (Auto) Logan % (Auto) Eos % (Auto) Baso % (Auto) Lymph # (Auto) Logan # (Auto) Baso # (Auto) Total Counted Seg Neutrophils % (38-70) % Band Neutrophils % (3-7) % Lymphocytes % (Manual) (25-45) % Atypical Lymphs % ( - 0) % Monocytes % (Manual) (2-11) % Neutrophils # (Manual) (9635-9039) /uL RBC Morphology PT (10.1-12.7) SECONDS INR (0.9-1.3) APTT (26.4-36.2) SECONDS Sodium 117 L* (137-145) mmol/L Potassium 4.4 (3.4-5.1) mmol/L Chloride 86 L (98-107) mmol/L Carbon Dioxide 24 (22-32) mmol/L BUN 38 H (7-17) mg/dL Creatinine 1.52 H (0.52-1.04) mg/dL Estimated GFR 33.6 L (>60) mL/min BUN/Creatinine Ratio 25.0 H (6-22) Glucose 356 H (80-110) mg/dL Lactate 3.0 H (0.7-2.1) mmol/L Calcium 8.3 L (8.4-10.2) mg/dL Total Bilirubin 0.4 (0.2-1.3) mg/dL AST 51 H (14-36) IU/L ALT 44 H (<35) IU/L Alkaline Phosphatase 56 (38-126) U/L Total Creatine Kinase 63 (30-135) U/L CK-MB (CK-2) TNP CK-MB (CK-2) Rel Index TNP Troponin I 0.023 (0.01-0.034) ng/mL Total Protein 5.7 L (6.3-8.2) g/dL Albumin 3.0 L (3.5-5.0) g/dL Globulin 2.7 (1.7-4.1) g/dL Albumin/Globulin Ratio 1.1 (1.0-2.8) Lipase 62 (23-300) U/L Procalcitonin 39.5 H (<0.5) ng/mL Urine Color Urine Appearance Urine pH (4.5-8.0) Ur Specific [place] (1.000-1.035) Urine Protein (Negative) Urine Glucose (UA) (Negative) g/dL Urine Ketones (NEGATIVE) Urine Occult Blood (Negative) Urine Nitrate (Negative) Urine Bilirubin (NEGATIVE) Urine Urobilinogen (0.2) E.U./dL Ur Leukocyte Esterase (NEGATIVE) Urine RBC (0-5/HPF) Urine WBC (0-5/HPF) Urine Bacteria (None) Ur Culture Indicated? SARS-CoV-2 (PCR) Negative (Negative) Imaging Data Chest x-ray: Radiologist's Impression: PROCEDURE: XR CHEST 1V INDICATIONS: fever TECHNIQUE: One view of the chest was acquired. COMPARISON: None. FINDINGS: Surgical changes and devices: None. Lungs and pleura: Left basilar scarring versus atelectasis. No pleural effusions or pneumothorax. Mediastinum: Mediastinal contours appear normal. Heart size is normal. Bones and chest wall: No suspicious bony lesions. Overlying soft tissues appear unremarkable. IMPRESSION: Minimal left basilar scarring versus atelectasis. Dictated by: Marquise Ponce M.D. on 04/16/2020 at 9:38 MDM Narrative Medical decision making narrative: UTI with leukocytosis of 13 and lactic acid 3.0. Hypotensive which resolves with small amount of fluid. She was not bolus fluid due to history of hyponatremia. She is found to be hyponatremic sodium 117. She is given normal saline at 100 mL per hour. She is given a dose of Rocephin previous cultures states that she is sensitive to Rocephin. Chest x-ray is clear. Dr. Millan accepts patient Discharge Plan Departure Patient Disposition: Admitted As Inpatient Clinical Impression: Hyponatremia, Urinary tract infection Admit Date/Time: 04/16/20 11:24 Admit Provider: Jovi Donato
[2020-04-16 10:03] LABS: Appearance Urine UA SL CLOUDY; Bilirubin Urine UA NEGATIVE (NEGATIVE); Color Urine UA YELLOW; Glucose Urine UA NEGATIVE (Negative); Ketones Urine UA NEGATIVE (NEGATIVE); Leukocyte Esterase Urine UA 2+ (NEGATIVE); Nitrite Urine UA NEGATIVE (Negative); Occult Blood Urine UA 1+ (Negative); Protein Urine UA 1+ (Negative); Urobilinogen Urine UA 0.2 E.U./dL (0.2)
--- NOTE | 2020-04-16 10:03 | DI.RAD.S_ITS ---
PROCEDURE: XR CHEST 1V INDICATIONS: fever TECHNIQUE: One view of the chest was acquired. COMPARISON: None. FINDINGS: Surgical changes and devices: None. Lungs and pleura: Left basilar scarring versus atelectasis. No pleural effusions or pneumothorax. Mediastinum: Mediastinal contours appear normal. Heart size is normal. Bones and chest wall: No suspicious bony lesions. Overlying soft tissues appear unremarkable. IMPRESSION: Minimal left basilar scarring versus atelectasis. Dictated by: Marquise Ponce M.D. on 04/16/2020 at 9:38 Approved by: Marquise Ponce M.D. on 04/16/2020 at 9:39
[2020-04-16 10:08] LABS: Bacteria Urine Many (>30); Culture Indicated Urine Specimen Cultured; RBC Urine 1-5/HPF (0-5/HPF); WBC Urine 10-30/HPF (0-5/HPF)
[2020-04-16 10:19] LABS: Hemoglobin 9.1 g/dL (12.0-16.0); Mean Corpuscular HGB Conc 33.6 % (30-36); Mean Corpuscular Hemoglobin 31.5 PG (26-34); Mean Corpuscular Volume 93.7 fL (80-100); Platelet Count 104 X10^3/uL (150-400); Red Blood Cell Count 2.88 X10^6/uL (4.0-5.2); Red Cell Distribution Width 14.4 % (11.6-14.8); White Blood Cell Count 13.1 X10^3/uL (4.5-11.0)
[2020-04-16 10:20] LABS: Add Manual Diff / Slide Review YES
[2020-04-16 10:26] LABS: INR 1.2 (0.9-1.3); Prothrombin Time 14.4 SECONDS (10.1-12.7)
[2020-04-16 10:28] LABS: PTT Partial Thromboplastin Tim 32 SECONDS (26.4-36.2)
[2020-04-16 10:30] LABS: Alanine Aminotransferase 44 IU/L (<35); Albumin Globulin Ratio 1.1 (1.0-2.8); Alkaline Phosphatase 56 U/L (38-126); Aspartate Aminotransferase 51 IU/L (14-36); Bilirubin Total 0.4 mg/dL (0.2-1.3); Blood Urea Nitrogen 38 mg/dL (7-17); Calcium 8.3 mg/dL (8.4-10.2); Carbon Dioxide 24 mmol/L (22-32); Chloride 86 mmol/L (98-107); Creatine Kinase 63 U/L (30-135); Estimated Glomerular Filt Rate 33.6 mL/min (>60); Globulin 2.7 g/dL (1.7-4.1); Glucose 356 mg/dL (80-110); HEMOLYSIS < 15 (0-50); Lipase 62 U/L (23-300); Potassium 4.4 mmol/L (3.4-5.1); Total Protein 5.7 g/dL (6.3-8.2)
[2020-04-16] MEDS: CEFTRIAXONE 1 GM/50 ML FROZ.PIGGY IV (10:32)
[2020-04-16 10:33] LABS: Neutrophils Absolute Manual 11397 /uL (3000-5900); RBC Morphology Normal Morphology; Total Cells Counted 100
[2020-04-16] MEDS: SODIUM CHLORIDE 0.9% 1,000 ML 150 ML IV ×3 (10:33→17:22)
[2020-04-16 10:35] LABS: Sodium 117 mmol/L (137-145)
[2020-04-16 10:42] LABS: Troponin I 0.023 ng/mL (0.01-0.034)
[2020-04-16 10:47] LABS: Procalcitonin 39.5 ng/mL (<0.5)
--- NOTE | 2020-04-16 10:52 | PC.NURSE ---
Niece and primary caregiver states pt is normally ambulatory, alert/oriented x 4. Uses a walker when she leaves the house. States she was in a normal state of health yesterday.
[2020-04-16 10:59] LABS: COVID19 -Nasal RAPID Negative (Negative)
[2020-04-16 12:15] LABS: Reflexed Lactate in 2 Hours Y
[2020-04-16 13:14] LABS: Lactate 2HR (Lactic Acid Rflx) 1.8 mmol/L (0.7-2.1)
[2020-04-16 13:58] LABS: BUN Creatinine Ratio 28.1 (6-22); Blood Urea Nitrogen 39 mg/dL (7-17); Calcium 8.5 mg/dL (8.4-10.2); Carbon Dioxide 26 mmol/L (22-32); Chloride 87 mmol/L (98-107); Estimated Glomerular Filt Rate 37.3 mL/min (>60); Glucose 303 mg/dL (80-110); HEMOLYSIS < 15 (0-50); Potassium 4.2 mmol/L (3.4-5.1)
--- NOTE | 2020-04-16 14:10 | PC.NURSE ---
Day shift: Dr Donato told about critical lab value of Na+ 117 at 1409.
[2020-04-16 14:27] LABS: Sodium 117 mmol/L (137-145)
[2020-04-16] MEDS: ACETAMINOPHEN 325 MG TABLET 650 MG PO (15:45)
[2020-04-16] MEDS: LORazepam 2 MG/ML INJ 0.5 MG IV (17:05)
[2020-04-16] MEDS: INSULIN ASPART 100 UNIT/ML INSULN PEN SUBCUT ×2 (17:10→20:49)
[2020-04-16 17:36] LABS: BUN Creatinine Ratio 25.9 (6-22); Blood Urea Nitrogen 36 mg/dL (7-17); Calcium 8.4 mg/dL (8.4-10.2); Carbon Dioxide 27 mmol/L (22-32); Chloride 90 mmol/L (98-107); Estimated Glomerular Filt Rate 37.3 mL/min (>60); Glucose 135 mg/dL (80-110); HEMOLYSIS < 15 (0-50); Potassium 3.8 mmol/L (3.4-5.1); Sodium 120 mmol/L (137-145)
--- NOTE | 2020-04-16 19:09 | P.HP_ITS ---
History of Present Illness History of Present Illness Date Patient Seen: 04/16/20 Chief complaint: diabetic, UTI Sx Narrative: Patient is a 70-year-old female originally from the [facility] who [facility] her 2 [facility] [place] ability is poor and who has a history of dementia DM2, HTN, hyponatremia presents on admission with weakness, gait instability, increased confusion. Niece is at the bedside in even from the niece the history is somewhat vague. However is mentioned that the patient has become more confused. Yesterday she had gait instability. The symptoms were similar to those of a year ago for than niece and therefore she was concern for UTI and brought the patient to the ED for evaluation Patient History Medical History (Updated 04/16/20 @ 11:21 by Ana Anne DO) Dementia Diabetes Hyponatremia Surgical History H/O enucleation of left eyeball Family & Social History Family History Father Diabetes mellitus Smoker Mother Diabetes mellitus Brother Diabetes mellitus Sister Heart attack Daughter Diabetes mellitus Social History: household members family Prior Living Arrangements Apartment/Condo Safety & Behavioral: Feels Safe in Current Yes Environment Been Physically Hurt or No Threatened By a Person Suicidal Ideation Description None Suicide Plan Description No Plan Tobacco & Substance use: Smoking Status Never smoker alcohol intake never Substance Use Type does not use Meds Home Medications and Allergies Home Medications Medication Instructions Recorded Confirmed Type Lantus U-100 Insulin 6 unit SUBCUT BID 04/17/19 04/16/20 History aspirin [Adult Low Dose Aspirin] 81 mg PO QAM 04/17/19 04/16/20 History metformin 500 mg BID 04/17/19 04/16/20 History lisinopril 10 mg PO QAM 04/16/20 04/16/20 History multivitamin [Daily Multivitamin] 1 tab PO QAM 04/16/20 04/16/20 History simvastatin 20 mg PO BEDTIME 04/16/20 04/16/20 History Allergies Allergy/AdvReac Type Severity Reaction Status Date / Time No Known Drug Allergies Allergy Verified 04/18/19 00:16 Review of Systems Review of Systems ROS: Yes unobtainable due to mental status Exam Vital Signs (past 8 hours): - 04/16/20 11:15 04/16/20 11:30 04/16/20 11:45 Temperature Pulse Rate 70 69 74 Respiratory Rate 13 14 11 L Blood Pressure 97/53 L 102/57 L 119/59 L Pulse Oximetry 99 99 99 04/16/20 12:00 04/16/20 12:15 04/16/20 12:43 Temperature 97.0 F L Pulse Rate 69 71 69 Respiratory Rate 13 11 L 14 Blood Pressure 100/54 L 114/59 L 85/43 L Pulse Oximetry 99 99 97 04/16/20 13:23 04/16/20 15:45 04/16/20 15:57 Temperature 100.1 F H 100.1 F H Pulse Rate 95 H Respiratory Rate 18 Blood Pressure 140/103 H Pulse Oximetry 100 98 04/16/20 16:44 04/16/20 16:50 Temperature 98.4 F Pulse Rate Respiratory Rate Blood Pressure 132/55 L Pulse Oximetry 99 Oxygen Delivery Method Room Air Oxygen Flow Rate 0 Narrative Exam Narrative: Constitutional: Frail chronically ill-appearing female NAD laying on hospital bed HEENT: Normocephalic atraumatic. extraocular movements intact. Right pupil approximately 3-4 mm. Left eye enucleated. Right fundus was not viewed Patient is edentulous. Oropharynx is clear with moist mucous membranes Neck: Supple without thyromegaly bruits or jugular venous distention Respiratory: Clear to auscultation Cardiovascular: Regular rhythm S1-S2 normal the renal issues rubs gallops present GI: Benign, bowel sounds present : No Giraldo present Musculoskeletal: Full range of motion. No clubbing edema or cyanosis Psychological: Difficult to evaluate because of language barrier. Skin: Ecchymosis of the arms bilaterally. Atrophic skin Objective Labs Result Diagrams: 04/16/20 10:08 04/16/20 17:14 Labs: Laboratory Results - last 24 hr 04/16/20 04/16/20 04/16/20 09:48 10:08 10:08 WBC 13.1 H RBC 2.88 L Hgb 9.1 L Hct 27.0 L MCV 93.7 MCH 31.5 MCHC 33.6 RDW 14.4 Plt Count 104 L Neut % (Auto) Not Reportable Lymph % (Auto) Not Reportable [place] % (Auto) Not Reportable Eos % (Auto) Not Reportable Baso % (Auto) Not Reportable Lymph # (Auto) Not Reportable [place] # (Auto) Not Reportable Baso # (Auto) Not Reportable Total Counted 100 Seg Neutrophils % 81.0 H Band Neutrophils % 6.0 Lymphocytes % (Manual) 3.0 L Atypical Lymphs % 4.0 H Monocytes % (Manual) 6.0 Neutrophils # (Manual) 19021 H RBC Morphology Normal morphology PT 14.4 H INR 1.2 APTT 32 Sodium Potassium Chloride Carbon Dioxide BUN Creatinine Estimated GFR BUN/Creatinine Ratio Glucose Lactate Calcium Total Bilirubin AST ALT Alkaline Phosphatase Total Creatine Kinase CK-MB (CK-2) CK-MB (CK-2) Rel Index Troponin I Total Protein Albumin Globulin Albumin/Globulin Ratio Lipase Procalcitonin Urine Color Yellow Urine Appearance Sl cloudy Urine pH 7.0 Ur Specific [place] 1.010 Urine Protein 1+ H Urine Glucose (UA) Negative Urine Ketones Negative Urine Occult Blood 1+ H Urine Nitrate Negative Urine Bilirubin Negative Urine Urobilinogen 0.2 Ur Leukocyte Esterase 2+ H Urine RBC 1-5/hpf Urine WBC 10-30/hpf H Urine Bacteria Many (>30) H Ur Culture Indicated? Specimen cultured SARS-CoV-2 (PCR) 04/16/20 04/16/20 04/16/20 10:08 10:08 10:26 WBC RBC Hgb Hct MCV MCH MCHC RDW Plt Count Neut % (Auto) Lymph % (Auto) [place] % (Auto) Eos % (Auto) Baso % (Auto) Lymph # (Auto) [place] # (Auto) Baso # (Auto) Total Counted Seg Neutrophils % Band Neutrophils % Lymphocytes % (Manual) Atypical Lymphs % Monocytes % (Manual) Neutrophils # (Manual) RBC Morphology PT INR APTT Sodium 117 L* Potassium 4.4 Chloride 86 L Carbon Dioxide 24 BUN 38 H Creatinine 1.52 H Estimated GFR 33.6 L BUN/Creatinine Ratio 25.0 H Glucose 356 H Lactate 3.0 H Calcium 8.3 L Total Bilirubin 0.4 AST 51 H ALT 44 H Alkaline Phosphatase 56 Total Creatine Kinase 63 CK-MB (CK-2) TNP CK-MB (CK-2) Rel Index TNP Troponin I 0.023 Total Protein 5.7 L Albumin 3.0 L Globulin 2.7 Albumin/Globulin Ratio 1.1 Lipase 62 Procalcitonin 39.5 H Urine Color Urine Appearance Urine pH Ur Specific [place] Urine Protein Urine Glucose (UA) Urine Ketones Urine Occult Blood Urine Nitrate Urine Bilirubin Urine Urobilinogen Ur Leukocyte Esterase Urine RBC Urine WBC Urine Bacteria Ur Culture Indicated? SARS-CoV-2 (PCR) Negative 04/16/20 04/16/20 04/16/20 12:58 12:58 17:14 WBC RBC Hgb Hct MCV MCH MCHC RDW Plt Count Neut % (Auto) Lymph % (Auto) [place] % (Auto) Eos % (Auto) Baso % (Auto) Lymph # (Auto) [place] # (Auto) Baso # (Auto) Total Counted Seg Neutrophils % Band Neutrophils % Lymphocytes % (Manual) Atypical Lymphs % Monocytes % (Manual) Neutrophils # (Manual) RBC Morphology PT INR APTT Sodium 117 L* 120 L Potassium 4.2 3.8 Chloride 87 L 90 L Carbon Dioxide 26 27 BUN 39 H 36 H Creatinine 1.39 H 1.39 H Estimated GFR 37.3 L 37.3 L BUN/Creatinine Ratio 28.1 H 25.9 H Glucose 303 H 135 H D Lactate 1.8 Calcium 8.5 8.4 Total Bilirubin AST ALT Alkaline Phosphatase Total Creatine Kinase CK-MB (CK-2) CK-MB (CK-2) Rel Index Troponin I Total Protein Albumin Globulin Albumin/Globulin Ratio Lipase Procalcitonin Urine Color Urine Appearance Urine pH Ur Specific [place] Urine Protein Urine Glucose (UA) Urine Ketones Urine Occult Blood Urine Nitrate Urine Bilirubin Urine Urobilinogen Ur Leukocyte Esterase Urine RBC Urine WBC Urine Bacteria Ur Culture Indicated? SARS-CoV-2 (PCR) 04/16/20 17:14 WBC RBC Hgb Hct MCV MCH MCHC RDW Plt Count Neut % (Auto) Lymph % (Auto) [place] % (Auto) Eos % (Auto) Baso % (Auto) Lymph # (Auto) [place] # (Auto) Baso # (Auto) Total Counted Seg Neutrophils % Band Neutrophils % Lymphocytes % (Manual) Atypical Lymphs % Monocytes % (Manual) Neutrophils # (Manual) RBC Morphology PT INR APTT Sodium Potassium Chloride Carbon Dioxide BUN Creatinine Estimated GFR BUN/Creatinine Ratio Glucose Lactate Calcium Total Bilirubin AST ALT Alkaline Phosphatase Total Creatine Kinase CK-MB (CK-2) CK-MB (CK-2) Rel Index Troponin I Total Protein Albumin Globulin Albumin/Globulin Ratio Lipase Procalcitonin 34.0 H Urine Color Urine Appearance Urine pH Ur Specific [place] Urine Protein Urine Glucose (UA) Urine Ketones Urine Occult Blood Urine Nitrate Urine Bilirubin Urine Urobilinogen Ur Leukocyte Esterase Urine RBC Urine WBC Urine Bacteria Ur Culture Indicated? SARS-CoV-2 (PCR) [address] [id number] ReportSigned Patient: Felicitas SmallsMR#: [id number]: 8Acct:[id number]/Sex: 70 / FDate of Service: 04/16/20Loc: EDAccession Number: [id number] Procedure: XR chest 1V Ordering Provider: Ana Anne D.O. PROCEDURE: XR CHEST 1V INDICATIONS: fever TECHNIQUE: One view of the chest was acquired. COMPARISON: None. FINDINGS: Surgical changes and devices: None. Lungs and pleura: Left basilar scarring versus atelectasis. No pleural effusions or pneumothorax. Mediastinum: Mediastinal contours appear normal. Heart size is normal. Bones and chest wall: No suspicious bony lesions. Overlying soft tissues appear unremarkable. IMPRESSION: Minimal left basilar scarring versus atelectasis. Dictated by: Marquise Ponce M.D. on 04/16/2020 at 9:38 Approved by: Marquise Ponce M.D. on 04/16/2020 at 9:39 Assessment & Plan Assessment & Plan narrative: Sepsis Is manifested by increased mental status change, MINNIE, increased WBC, elevated procalcitonin Would appear that this is secondary to UTI. Chest x-ray is without infiltrate IV of normal saline 150 cc per hour IV Rocephin as mentioned above Serial procalcitonin UTI The this based on her abnormal UA Rocephin 2 g IV daily Follow blood and urine cultures Severe hyponatremia Check urine and serum osmolality Check TSH and cortisol Check urine sodium IV normal saline at 150 cc/hour Serial BMPs MINNIE Probably related to her sepsis. There could be an element of IVVD/dehydration Serial BMPs Thrombocytopenia Probably related to her sepsis Serial CBCs Leukocytosis Secondary to her sepsis/UTI Serial CBCs
[2020-04-16] MEDS: CEFTRIAXONE 2 GM/50 ML FROZ.PIGGY IV (20:17)
[2020-04-16] MEDS: INSULIN GLARGINE 100 UNIT/ML 3ML PEN 10 UNIT SUBCUT (20:49)
[2020-04-16] MEDS: DOCUSATE 100 MG CAPSULE PO (20:50)
[2020-04-16] MEDS: HEPARIN 5,000 UNIT/ML VIAL 5000 UNIT SUBCUT (20:50)
[2020-04-16 21:17] LABS: BUN Creatinine Ratio 28.2 (6-22); Blood Urea Nitrogen 37 mg/dL (7-17); Calcium 8.1 mg/dL (8.4-10.2); Carbon Dioxide 25 mmol/L (22-32); Estimated Glomerular Filt Rate 39.9 mL/min (>60); Glucose 183 mg/dL (80-110); HEMOLYSIS < 15 (0-50); Potassium 4.1 mmol/L (3.4-5.1)
[2020-04-16 21:22] LABS: Chloride 90 mmol/L (98-107); Sodium 120 mmol/L (137-145)
[2020-04-16 21:34] LABS: Procalcitonin 33.9 ng/mL (<0.5)
--- NOTE | 2020-04-16 22:29 | PC.NURSE ---
Addendum entered by Charlee Richardson R.N. 04/16/20 23:34: 2012: ICU nurse accidentally notified me regarding a suspicious tele reading, but it was meant for someone else. pt was asleep and was woken up and asked if she had was having chest pain and she said yes. STAT EKG was taken. provider reviewed the EKG. Original Note: pt unable to void. bladder scan 462cc, verbal order for straight cath, 500cc out.
[2020-04-17] VITALS (13 sets, daily range): BP systolic 92–160; BP diastolic 49–92; PULSE 80–118; RESP 16–20; TEMP 36.6–38.3; O2SAT 94–99
[2020-04-17 00:32] LABS: Acinetobacter baumannii Not Detected (Not Detect); Candida albicans Not Detected (Not Detect); Candida glabrata Not Detected (Not Detect); Candida krusei Not Detected (Not Detect); Candida parapsilosis Not Detected (Not Detect); Candida tropicalis Not Detected (Not Detect); E. coli Detected (Not Detect); Enterobacter cloacae complex Not Detected (Not Detect); Enterobacteriaceae species Detected (Not Detect); Enterococcus species Not Detected (Not Detect); Haemophilus influenzae Not Detected (Not Detect); KPC (carbapenem-resist gene) Not Detected (Not Detect); Listeria monocytogenes Not Detected (Not Detect); Neisseria meningitidis Not Detected (Not Detect); Proteus species Not Detected (Not Detect); Pseudomonas aeruginosa Not Detected (Not Detect); Serratia marcescens Not Detected (Not Detect); Staphylococcus species Not Detected (Not Detect); Streptococcus agalactiae (Gr B Not Detected (Not Detect); Streptococcus pneumonia Not Detected (Not Detect); Streptococcus pyogenes (Gr A) Not Detected (Not Detect); Streptococcus species Not Detected (Not Detect)
[2020-04-17] MEDS: SODIUM CHLORIDE 0.9% 1,000 ML 125 ML IV ×2 (01:20→08:52)
[2020-04-17] MEDS: MEROPENEM 1 GM in SODIUM CHLORIDE 0.9% 100 ML 200 ML IV ×3 (03:27→21:12)
[2020-04-17 05:48] LABS: Hemoglobin 9.9 g/dL (12.0-16.0); Mean Corpuscular HGB Conc 34.2 % (30-36); Mean Corpuscular Hemoglobin 31.6 PG (26-34); Mean Corpuscular Volume 92.3 fL (80-100); Red Blood Cell Count 3.14 X10^6/uL (4.0-5.2); Red Cell Distribution Width 14.3 % (11.6-14.8); White Blood Cell Count 11.3 X10^3/uL (4.5-11.0)
[2020-04-17 05:52] LABS: Alanine Aminotransferase 37 IU/L (<35); Albumin 2.8 g/dL (3.5-5.0); Alkaline Phosphatase 89 U/L (38-126); Aspartate Aminotransferase 41 IU/L (14-36); BUN Creatinine Ratio 27.5 (6-22); Bilirubin Total 0.4 mg/dL (0.2-1.3); Blood Urea Nitrogen 33 mg/dL (7-17); Calcium 8.2 mg/dL (8.4-10.2); Carbon Dioxide 26 mmol/L (22-32); Chloride 96 mmol/L (98-107); Estimated Glomerular Filt Rate 44.2 mL/min (>60); Globulin 2.9 g/dL (1.7-4.1); Glucose 73 mg/dL (80-110); HEMOLYSIS < 15 (0-50); Potassium 4.1 mmol/L (3.4-5.1); Sodium 124 mmol/L (137-145); Total Protein 5.7 g/dL (6.3-8.2)
[2020-04-17 05:53] LABS: Add Manual Diff / Slide Review YES
[2020-04-17 05:54] LABS: Platelet Count 85 X10^3/uL (150-400)
[2020-04-17 06:00] LABS: Neutrophils Absolute Manual 10283 /uL (3000-5900); Total Cells Counted 100
[2020-04-17 06:02] LABS: RBC Morphology Normal Morphology
[2020-04-17 06:08] LABS: Procalcitonin 25.9 ng/mL (<0.5)
[2020-04-17 06:22] LABS: Cortisol Random 23.3 ug/dL
[2020-04-17 06:23] LABS: TSH w/ Reflex to FT4 0.98 uIU/mL (0.47-4.68)
--- NOTE | 2020-04-17 08:25 | PC.NURSE ---
Day shift: Pt has dark colored line from nail bed to tip of fingernail on all 10 digits.
[2020-04-17] MEDS: DOCUSATE 100 MG CAPSULE PO ×2 (08:49→19:47)
[2020-04-17] MEDS: HEPARIN 5,000 UNIT/ML VIAL 5000 UNIT SUBCUT ×2 (08:49→19:47)
--- NOTE | 2020-04-17 10:06 | CM.DANOTE ---
DCP: Case received, EMR reviewed and met with patient. Daughter, Khushboo Alfonso, was at bedside. Introduced self and role. Was able to obtain information from patient's daughter regarding patient's baseline activity level and needs prior to hospitalization. DCP assessment completed with information currently available. Patient is a 70 year old female who admitted yesterday morning to the care of the hospitalist team. PCP: Dr. Johnson at [facility] in [facility]. Payer: confirmed: Medicaid. Patient came to the hospital via private vehicle secondary to having increased weakness. Patient holds diagnosis if UTI, with leukocytosis, as well as hyponatremia. Patient also noted decrease in her blood pressure. Patient has history of dementia, as well as diabetes. Met with patient and daughter, Khushboo. Confirmed with daughter that she resides with patient in [place]. She is her primary caregiver. Patient has a cane/walker for home use. She gets assistance with showers, and meals. Daughter transports patient to appointments as needed. P: DCP to continue to follow. Patient should be able to go home when medically stable, she will be working with P.T, and will note recommendations. Daughter confirmed that patient has had home health before, so this may be another option. Kya Patino RN/Check Airman
--- NOTE | 2020-04-17 10:15 | PT.IIE ---
Current Diagnoses Sepsis, unspecified organism (04/16/20) Surgical History (Last Reviewed 04/16/20 @ 10:10 by Ana Anne DO) H/O enucleation of left eyeball Medical History (Last Updated 04/16/20 @ 10:10 by Ana Anne DO) Dementia Diabetes Hyponatremia Physical Therapy Inpatient Evaluation/Re-Eval M1 PT/OT-IP Prior Functional Status Start: 04/17/20 08:00 Freq: NEEDED Status: Active Protocol: Document 04/17/20 10:13 AW (Rec: 04/17/20 13:29 AW [id number]) Medical Review Prior Functional Status Communication Pt speaks [place]. Her niece, Sharri, provided interpretation assistance throughout evaluation. Mobility and Gait Pt is independent with all mobility at home. She uses a quad cane for short parking lot distances in the community . Activities of Daily Living and IADL's Pt's nieces provide setup assist for dressing. They assist with showers. Pt is independent with toileting. Her nieces provide assist with all IADL's Social History Household Members family Living Arrangements Apartment/Condo Number of Floors (Floors) One Floor Number of Stairs To Enter/Railing? Pt lives in a first floor apartment with level entrance. Home Environment Standard Height Toilet,Tub/ Shower Home Equipment Quad Cane Additional Social History Comment There is a sink and towel bar around the toilet. Pt sleeps on a mat on the floor. She lives with her nieces and niece's daughter. Pt's niece works shift engineer as a FINISHING OPERATOR at a SNF. Between her and other family, the pt has 24/7 care. M1 PT/OT-IP Prior Functional Status Start: 04/17/20 12:27 Freq: NEEDED Status: Active Protocol: Document 04/17/20 10:25 [facility] (Rec: 04/17/20 12:52 [facility] [id number]) Medical Review Prior Functional Status Communication Per PT eval-Pt speaks [place]. Her niece, Sharri , provided interpretation assistance throughout evaluation. Mobility and Gait Per PT eval-Pt is independent with all mobility at home. She uses a quad cane for short parking lot distances in the community. Activities of Daily Living and IADL's Per PT eval-Pt's nieces provide setup assist for dressing. They assist with showers. Pt is independent with toileting. Her neices provide assist with all IADL's Social History Household Members family Living Arrangements Apartment/Condo Number of Floors (Floors) One Floor Number of Stairs To Enter/Railing? Pt lives in a first floor apartment with level entrance. Home Environment Standard Height Toilet,Tub/ Shower Home Equipment Quad Cane Additional Social History Comment Per PT eval as pt's niece present. There is a sink and towel bar around the toilet. Pt sleeps on a mat on the floor. She lives with her nieces and niece's daughter. Between them, the pt has 24/7 care. M2 PT-IP Current Condition Start: 04/17/20 08:00 Freq: NEEDED Status: Active Protocol: Document 04/17/20 10:13 AW (Rec: 04/17/20 13:29 AW [id number]) Physical Therapy Current Condition Current Condition Evaluation Date 04/17/20 Treatment Diagnosis sepsis, UTI, generalized weakness, difficulty in walking Onset Date 04/15/20 Precautions Other Precautions falls M3 PT-IP Subjective Start: 04/17/20 08:00 Freq: NEEDED Status: Active Protocol: Document 04/17/20 10:13 AW (Rec: 04/17/20 13:29 AW [id number]) Subjective Physical Therapy Visit Type Type Initial Evaluation Visit Start Time 09:45 Visit Stop Time 10:13 Total Visit Minutes 28 Notes Pt's niece provided interpretation assist. Physical Therapy Visit Comments Patient Comments Pt is agreeable to therapy Patient Goals Niece hopes to take the pt back home. Therapy Pain Assessment Pain When Pain Assessed During Mobility Pain Present Pain Present Denied Pain M4 PT-IP Mobility and Gait Start: 04/17/20 08:00 Freq: NEEDED Status: Active Protocol: Document 04/17/20 10:13 AW (Rec: 04/17/20 13:29 AW [id number]) PT-Bed Mobility Assessment Supine to Sit Supine to Sit Minimal Assistance,1 Person Assistance Scooting Scooting to Edge of Bed Contact Guard Assistance PT-Transfer Assessment Sit to and From Stand Sit to and from Stand Minimal Assistance,1 Person Assistance Equipment Transfer Assistive Device Gait Belt,Small Based Quad Cane Orthotic/Prosthetic Devices or Brace: No Transfers Transfer Destination Chair Transfer Technique Stand Step Pivot Transfer Ability Level of Assist Minimal Assistance,1 Person Assistance,Use of Upper Extremities Comments Mobility Comments Pt was lying in the bed as PT arrived. With HOB flat, she was able to pull up to long- sitting and then move toward left EOB. She reached for therapist's hand who provided DIVISION SUPERINTENDENT/min assist to turn fully to EOB and to scoot forward. Pt then stood from the bed with strong posterior lean evident requiring min assist. Using the QC, she transferred to the chair set up on her left side min A x 1 and max cues to line up with the chair and to use her arms to control her descent. Pt then stood from the chair with min A x 1 to counteract posterior lean. She ambulated toward the sink and back to the chair with QC min to mod A x 1 for balance assist. Pt scooted herself back in the chair and was positioned there with call light in reach. She was unable to demonstrate use of the call light. Pt's niece remained in the room. Chair alarm was armed for safety. Gait Assessment Gait Gait Assistance Required: Minimum Assistance,Moderate Assistance Distance (Feet) 10 Assistive Devices Assistive Device Gait Belt,Small Based Quad Cane Orthotic/Prosthetic Devices or Brace: No Gait Deviations General Gait Pattern Antalgic,Decreased Stride Length,Decreased Feet Clearance,Narrow Based Gait Factors Limiting Gait Function Factors Limiting Gait Function Decreased Activity Tolerance, Decreased Strength,Difficulty Following Directions,Poor Balance,Poor Safety Awareness Comments Gait Comments See mobility comments for details. Stair Climbing Assessment Comments Stair Climbing Comments Not assessed. No stairs at home. PT-Balance Assessment Sitting Balance and Reactions Static Sitting Balance Ability Fair Dynamic Sitting Balance Ability Fair Standing Balance and Reactions Static Standing Balance Ability Poor Dynamic Standing Balance Ability Poor Device Used QC Balance Tests Single Limb Standing unable M5 PT-IP Objective Assessments Start: 04/17/20 08:00 Freq: NEEDED Status: Active Protocol: Document 04/17/20 10:13 AW (Rec: 04/17/20 13:29 AW [id number]) Orientation Orientation/Cognition Level of Alertness Alert Language Function Ability Slovenian as Second Language Safety Awareness Decreased Safety Awareness Comments Unable to assess orientation due to language barrier. Gross Range of Motion Lower Extremity ROM Assessment Within Functional Limits Strength Lower Extremity Strength Assessment Bilaterally Impaired Comments Strength Comments Pt able to complete SLR in supine. MMT was limited due to communication but functionally pt presents with weakness compared with baseline. Sensation Assessment Comments Sensation Comments Unable to assess. Muscle Tone Muscle Tone WNL Yes M6 PT-IP Treatment Start: 04/17/20 08:00 Freq: NEEDED Status: Active Protocol: Document 04/17/20 10:13 AW (Rec: 04/17/20 13:29 AW [id number]) Physical Therapy Treatment Education Education Provided Safety Other Treatments Other Treatment Performed Educated pt and her niece on the role of PT, plan of care, and level of assist currently required for mobility. M7 PT-IP Assessment and Plan Start: 04/17/20 08:00 Freq: NEEDED Status: Active Protocol: Document 04/17/20 10:13 AW (Rec: 04/17/20 13:29 AW [id number]) PT Summary Assessment and Plan Potential Rehabilitation Potential Good Status of Condition at Evaluation Evolving Summary Impairments Strength,Balance,Bed Mobility, Transfers,Gait,Activity Tolerance Assessment Summary Felicitas is a 70 yo [place]- speaking woman who is typically independent with household and short distance community mobility. She is admitted with diagnosis of sepsis secondary to UTI. On evaluation, pt required min to mod assist with all mobility. Weakness and balance impairment are strongly affecting her mobility. Pt requires continued acute PT and HH PT at discharge to address mobility and for ongoing caregiver education for her niece who is primary caregiver at home. Pt has 24/7 assist at home and will likely progress during her hospital stay. PT will continue to assess. Goals Bed Mobility Goal Independent Transfer Goal Standby Assistance,Cane,Front Wheeled Walker Gait Goal Standby Assistance,Cane,Front Wheel Walker Gait Distance 100 Other Goals - transfer and gait goals to be achieved with either SBQC or FWW. LTG: progress gait to 50 feet independent without AD Frequency of Treatment Frequency Of Treatment Once a Day Treatment Plan Physical Therapy Treatment Plan Bed Mobility Training,Transfer Training,Gait Training, Therapeutic Exercise,Balance Retraining,Discharge Planning, Neuromuscular Re-ed Other Recommendations and Next Treatment caregiver training; assess Focus transfers and gait with FWW; mobility as tolerated Precautions Other Precautions falls Recommendations To Nursing Amount of Assist Needed 1 Person Assist Discharge Recommendations PT Discharge Recommendations Home with 24/7 Assist Available,Home Health Equipment Needed for Home Before FWW if unsafe with quad cane Discharge Transportation Needs at Discharge Private Vehicle
--- NOTE | 2020-04-17 10:45 | OT.IP.EVAL ---
Current Diagnoses Sepsis, unspecified organism (04/16/20) Past Medical History (Last Updated 04/16/20 @ 10:10 by Ana Anne DO) Dementia Diabetes Hyponatremia Surgical History (Last Reviewed 04/16/20 @ 10:10 by Ana Anne DO) H/O enucleation of left eyeball Occupational Therapy Inpatient Evaluation/Re-Eval M1 PT/OT-IP Prior Functional Status Start: 04/17/20 12:27 Freq: NEEDED Status: Active Protocol: Document 04/17/20 10:25 [facility] (Rec: 04/17/20 12:52 [facility] [id number]) Medical Review Prior Functional Status Communication Per PT eval-Pt speaks Moroccan. Her niece, Sharri , provided interpretation assistance throughout evaluation. Mobility and Gait Per PT eval-Pt is independent with all mobility at home. She uses a quad cane for short parking lot distances in the community. Activities of Daily Living and IADL's Per PT eval-Pt's nieces provide setup assist for dressing. They assist with showers. Pt is independent with toileting. Her neices provide assist with all IADL's Social History Household Members family Living Arrangements Apartment/Condo Number of Floors (Floors) One Floor Number of Stairs To Enter/Railing? Pt lives in a first floor apartment with level entrance. Home Environment Standard Height Toilet,Tub/ Shower Home Equipment Quad Cane Additional Social History Comment Per PT eval as pt's niece present. There is a sink and towel bar around the toilet. Pt sleeps on a mat on the floor. She lives with her nieces and niece's daughter. Between them, the pt has 24/7 care. M2 OT-IP Current Condition Start: 04/17/20 12:27 Freq: Status: Active Protocol: Document 04/17/20 10:25 [facility] (Rec: 04/17/20 12:52 [facility] [id number]) Occupational Therapy Current Condition Current Condition Evaluation Date 04/17/20 Treatment Diagnosis Hypoatremia, UTI Diagnosis Onset Date 04/16/20 M3 OT- IP Subjective and Pain Start: 04/17/20 12:27 Freq: Status: Active Protocol: Document 04/17/20 10:25 [facility] (Rec: 04/17/20 12:52 [facility] [id number]) OT- Subjective Occupational Therapy Visit Type Type Initial Evaluation Visit Start Time 10:25 Visit Stop Time 10:45 Total Visit Minutes 20 Occupational Therapy Visit Comments Patient Comments Pt's niece just left per nursing assoc, pt only speaks Moroccan. OT Pain Assessment Pain When Pain Assessed At Rest Pain Present Pain Present Denied Pain M4 OT- IP ADL's Start: 04/17/20 12:27 Freq: Status: Active Protocol: Document 04/17/20 10:25 [facility] (Rec: 04/17/20 12:52 [facility] [id number]) OT [id number] Comments OT Self-Feeding Comments NOt at meal time. OT ADL-Grooming General Evaluation Grooming Ability Moderate Assistance Comments OT Grooming Comments Assist to help wash her hands. OT ADL-Oral Care General Eval Oral Care Ability Maximum Assistance Comments Oral Care Comments Pt at the time did not know how to use the toothbrush and needing assist. OT ADL-Dressing Comments OT Dressing Comments Not performed. OT ADL-Toileting General Evaluation Toileting Ability Total Assistance Comments OT Toileting Comments Pt has catheter in. OT ADL-Bathing Comments OT Bathing Comments Not performed. M5 OT- IP IADL's Start: 04/17/20 12:27 Freq: Status: Active Protocol: Document 04/17/20 10:25 [facility] (Rec: 04/17/20 12:52 [facility] [id number]) OT-Instrumental Activities of Daily Living Home Safety Awareness Awareness of Need for Assistance at Home Decreased Awareness Ability to Problem Solve Emergency Unable to Problem Solve Situations Medication Management Medication Management Caregiver Administers Money Management Money Management Caregiver Provides Assistance Meal Preparation Meal Preparation Caregiver Provides Assist Transportation Aide Transportation Aide Caregiver Provides Assist Driving Driving Caregiver Provides Assist M6 OT- IP Functional Cognition Start: 04/17/20 12:27 Freq: Status: Active Protocol: Document 04/17/20 10:25 [facility] (Rec: 04/17/20 12:52 [facility] [id number]) Cognitive Factors Limiting Selfcare Function Cognitive Ability Level of Alertness Alert Patient Orientation Name Cognitive Comments Cognitive Assessment Comments Pt primary language is Marshalese, therefore as pt's niece not present for OT eval, pt having difficulty to follow commands, in addition to visual and tactile cues. M7 OT- IP Mobility and Balance Start: 04/17/20 12:27 Freq: Status: Active Protocol: Document 04/17/20 10:25 [facility] (Rec: 04/17/20 12:52 [facility] [id number]) OT-Transfer Assessment Sit to and From Stand Sit to and from Stand Minimal Assistance Transfers Transfer Ability Minimal Assistance,Moderate Assistance Technique Transfer Destination Chair Comments Mobility Comments SISI to MIN/MOD A to stand form recliner. OT- Gait Assessment Comments Gait Ability Comments MIN/MODA for balance with use of quad cane or FWW. To continue to assess to see which one would be more appropriate for pt to use. OT- Balance Assessment Sitting Balance and Reactions Static Sitting Balance Ability Good Standing Balance and Reactions Static Standing Balance Ability Poor Dynamic Standing Balance Ability Poor M8 OT- IP Objective Assessments Start: 04/17/20 12:27 Freq: Status: Active Protocol: Document 04/17/20 10:25 [facility] (Rec: 04/17/20 12:52 [facility] [id number]) OT Gross Range of Motion Upper Extremity Range of Motion ROM Impairments Not able to fully assess due to language barrier. M9 OT- IP Assessment and Plan Start: 04/17/20 12:27 Freq: Status: Active Protocol: Document 04/17/20 10:25 [facility] (Rec: 04/17/20 12:52 [facility] [id number]) OT Summary Assessment and Plan Potential Rehabilitation Potential Good Analytic Complexity at Evaluation Low Summary OT Impairments Balance,Functional Cognition, Functional Mobility,Self- Feeding,Grooming,Dressing, Toileting,Bathing,Toilet Transfers,Shower Transfers, Activity Tolerance Progress Towards Goals Slow Progress due to Medical Issues,Slow Progress due to Activity Tolerance,Slow Progress due to Cognition Assessment Summary Pt low complexity and here due to UTI and hypoanatremia. Pt has a supportive family to assist pt at home. Therefore when medically stable, after caregiver training suggest pt to go home with 24/7 assist and home health. Goals Grooming Goal Minimal Assistance Dressing Goal Minimal Assistance Toileting Goal Minimal Assistance Bathing Goal Moderate Assistance Toilet Transfer Goal Standby Assistance Shower Transfer Goal Standby Assistance Patient/Caregiver Education Goal Caregiver Independent Assisting Patient Days to Meet Goals 5 Frequency of Treatment Frequency Of Treatment Once a Day Treatment Plan OT Treatment Plan ADL Training,Functional Mobility,Patient/Family Education,Discharge Planning Other Treatment Recommendations and Next caregiver training Treatment Focus Discharge Recommendations OT Discharge Recommendations Home with 24/7 Assist Available,Home Health Transportation Needs at Discharge Private Vehicle
--- NOTE | 2020-04-17 13:13 | PC.NURSE ---
Day shift: Dr Glover informed about Pt's blood glucose of 60 today for lunch. d/c'd Lantus dose. also informed of Pt's urine output for today.
--- NOTE | 2020-04-17 13:49 | PC.NURSE ---
Day shift: Pt back to bed after sitting in the chair. 2 person pivot w/ gaitbelt for safety. Bed alarm is on and call light in reach. Door to room open.
--- NOTE | 2020-04-17 14:29 | PC.NURSE ---
Day shift: When Pt back in bed she seemed to want to get back in the chair. Kept trying to get OOB. Back in the chair now. She seems for comfortable in the chair at this time. Language barrier makes communication difficult. [employer] was called but it went to and message was left. Maybe Khush[employer]o can translate for Pt soon. Chair alarm is in place. Blankets on Pt. Door to room is open. Call light in reach and TV is on. Offered Pt the use of BSC but she showed no interest.
--- NOTE | 2020-04-17 15:34 | P.PN_ITS ---
Subjective Subjective Date Patient Seen: 04/17/20 Time Patient Seen: 15:34 Interval history: Patient is a 70-year-old female originally from the [facility] who lives with her 2 niece and niece'rhonda, Amharic ability is poor and who has a history of dementia DM2, HTN, hyponatremia presents on admission with weakness, gait instability, increased confusion. Admitted for sepsis secondary to likely urinary tract infection. Somewhat improved today although h istory is limited given language barrier and dementia. Exam Vital Signs (past 8 hours): - 04/17/20 08:00 04/17/20 08:08 04/17/20 10:27 Temperature 99.2 F 98.6 F Pulse Rate 89 Respiratory Rate 20 20 Blood Pressure 116/51 L 120/69 Pulse Oximetry 94 96 97 04/17/20 11:59 04/17/20 13:49 Temperature 98.2 F Pulse Rate 95 H Respiratory Rate 20 Blood Pressure 139/67 Pulse Oximetry 99 98 Oxygen Delivery Method Room Air Oxygen Flow Rate 0 Narrative Exam Narrative: Constitutional: Frail chronically ill-appearing female NAD laying on hospital bed HEENT: Normocephalic atraumatic. extraocular movements intact. Right pupil approximately 3-4 mm. Left eye enucleated. Right fundus was not viewed Patient is edentulous. Oropharynx is clear with moist mucous membranes Neck: Supple without thyromegaly bruits or jugular venous distention Respiratory: Clear to auscultation Cardiovascular: Regular rhythm S1-S2 normal the renal issues rubs gallops present GI: S NT ND, bowel sounds present Musculoskeletal: Full range of motion. No clubbing edema or cyanosis Psychological: Difficult to evaluate because of language barrier and baseline dementia. Laughs and mumbles responses but these are unintelligble to this provider. Skin: Ecchymosis of the arms bilaterally. Atrophic skin Objective Labs Result Diagrams: 04/17/20 04:56 04/17/20 04:56 Labs: Laboratory Results - last 24 hr 04/16/20 04/16/20 04/16/20 10:08 17:14 17:14 WBC RBC Hgb Hct MCV MCH MCHC RDW Plt Count Neut % (Auto) Lymph % (Auto) [place] % (Auto) Eos % (Auto) Baso % (Auto) Lymph # (Auto) [place] # (Auto) Baso # (Auto) Total Counted Seg Neutrophils % Band Neutrophils % Lymphocytes % (Manual) Monocytes % (Manual) Eosinophils % (Manual) Neutrophils # (Manual) RBC Morphology Sodium 120 L Potassium 3.8 Chloride 90 L Carbon Dioxide 27 BUN 36 H Creatinine 1.39 H Estimated GFR 37.3 L BUN/Creatinine Ratio 25.9 H Glucose 135 H D Calcium 8.4 Total Bilirubin AST ALT Alkaline Phosphatase Total Protein Albumin Globulin Albumin/Globulin Ratio Procalcitonin 34.0 H TSH Random Cortisol A. baumannii (PCR) Not detected Andreina albicans (PCR) Not detected C. glabrata (PCR) Not detected C. krusei (PCR) Not detected C. parapsilosis (PCR) Not detected C. tropicalis (PCR) Not detected Enterobacteriac sp PCR Detected H E. cloacae complex PCR Not detected Enterococcus sp PCR Not detected E. coli (PCR) Detected H H. influenzae (PCR) Not detected Klebsiella oxytoca PCR Not detected Klebsiella pneumoniae Not detected List. monocytogenes PCR Not detected N. meningitidis (PCR) Not detected Proteus species (PCR) Not detected Serratia marcescens PCR Not detected Staphylococcus sp PCR Not detected Staph aureus (PCR) Not detected mecA-Methicil Res Gene Not Reportable Streptococcus sp PCR Not detected Group A Strep (PCR) Not detected Strep agalactiae (PCR) Not detected Strep pneumoniae (PCR) Not detected P. aeruginosa (PCR) Not detected Bhavin/B-Vanco Res Genes Not Reportable KPC-Carbap Res Gene PCR Not detected 04/16/20 04/16/20 04/17/20 21:00 21:00 04:56 WBC 11.3 H RBC 3.14 L Hgb 9.9 L Hct 29.0 L MCV 92.3 MCH 31.6 MCHC 34.2 RDW 14.3 Plt Count 85 L Neut % (Auto) Not Reportable Lymph % (Auto) Not Reportable [place] % (Auto) Not Reportable Eos % (Auto) Not Reportable Baso % (Auto) Not Reportable Lymph # (Auto) Not Reportable [place] # (Auto) Not Reportable Baso # (Auto) Not Reportable Total Counted 100 Seg Neutrophils % 72.0 H Band Neutrophils % 19.0 H Lymphocytes % (Manual) 2.0 L Monocytes % (Manual) 6.0 Eosinophils % (Manual) 1.0 L Neutrophils # (Manual) 68841 H RBC Morphology Normal morphology Sodium 120 L Potassium 4.1 Chloride 90 L Carbon Dioxide 25 BUN 37 H Creatinine 1.31 H Estimated GFR 39.9 L BUN/Creatinine Ratio 28.2 H Glucose 183 H Calcium 8.1 L Total Bilirubin AST ALT Alkaline Phosphatase Total Protein Albumin Globulin Albumin/Globulin Ratio Procalcitonin 33.9 H TSH Random Cortisol A. baumannii (PCR) Andreina albicans (PCR) C. glabrata (PCR) C. krusei (PCR) C. parapsilosis (PCR) C. tropicalis (PCR) Enterobacteriac sp PCR E. cloacae complex PCR Enterococcus sp PCR E. coli (PCR) H. influenzae (PCR) Klebsiella oxytoca PCR Klebsiella pneumoniae List. monocytogenes PCR N. meningitidis (PCR) Proteus species (PCR) Serratia marcescens PCR Staphylococcus sp PCR Staph aureus (PCR) mecA-Methicil Res Gene Streptococcus sp PCR Group A Strep (PCR) Strep agalactiae (PCR) Strep pneumoniae (PCR) P. aeruginosa (PCR) Bhavin/B-Vanco Res Genes KPC-Carbap Res Gene PCR 04/17/20 04/17/20 04/17/20 04:56 04:56 04:56 WBC RBC Hgb Hct MCV MCH MCHC RDW Plt Count Neut % (Auto) Lymph % (Auto) [place] % (Auto) Eos % (Auto) Baso % (Auto) Lymph # (Auto) [place] # (Auto) Baso # (Auto) Total Counted Seg Neutrophils % Band Neutrophils % Lymphocytes % (Manual) Monocytes % (Manual) Eosinophils % (Manual) Neutrophils # (Manual) RBC Morphology Sodium 124 L Potassium 4.1 Chloride 96 L Carbon Dioxide 26 BUN 33 H Creatinine 1.20 H Estimated GFR 44.2 L BUN/Creatinine Ratio 27.5 H Glucose 73 L D Calcium 8.2 L Total Bilirubin 0.4 AST 41 H ALT 37 H Alkaline Phosphatase 89 Total Protein 5.7 L Albumin 2.8 L Globulin 2.9 Albumin/Globulin Ratio 1.0 Procalcitonin 25.9 H TSH 0.98 Random Cortisol 23.3 A. baumannii (PCR) Andreina albicans (PCR) C. glabrata (PCR) C. krusei (PCR) C. parapsilosis (PCR) C. tropicalis (PCR) Enterobacteriac sp PCR E. cloacae complex PCR Enterococcus sp PCR E. coli (PCR) H. influenzae (PCR) Klebsiella oxytoca PCR Klebsiella pneumoniae List. monocytogenes PCR N. meningitidis (PCR) Proteus species (PCR) Serratia marcescens PCR Staphylococcus sp PCR Staph aureus (PCR) mecA-Methicil Res Gene Streptococcus sp PCR Group A Strep (PCR) Strep agalactiae (PCR) Strep pneumoniae (PCR) P. aeruginosa (PCR) Bhavin/B-Vanco Res Genes KPC-Carbap Res Gene PCR PFSH Medical History (Updated 04/16/20 @ 11:21 by Ana Anne DO) Dementia Diabetes Hyponatremia Surgical History H/O enucleation of left eyeball Family History Father Diabetes mellitus Smoker Mother Diabetes mellitus Brother Diabetes mellitus Sister Heart attack Daughter Diabetes mellitus Social History household members: family Smoking Status: Never smoker alcohol intake: never Assessment & Plan Assessment & Plan narrative: Patient is a 70-year-old female originally from the [facility] with a past medical history of DM 2, hypertension, And hyponatremia who lives with her 2 niece and niece's daughter, Amharic ability is poor and who has a history of dementia. Admitted for sepsis secondary to likely urinary tract infection. Somewhat improved today although history is limited given language barrier and dementia. 1. Sepsis, acute, present on admission, without septic shock. SOFA score of 3 based on MINNIE and thrombocytopenia. Also with metabolic encephalopathy on admission but now GCS of 15. Leukocytosis improved today. -continue antibiotics as noted below. -patient continued on fluids as noted below. -start PT/OT. 2. acute cystitis, present on admission continue ceftriaxone, follow up urine cultures. Currently with GNB. 3. Severe hyponatremia, improved. likely due to hypovolemia. Continue on NS. Na improved appropriately from 117 to 124. Will continue to follow. 4. MINNIE, improved Probably related to her sepsis. There could be an element of IVVD/dehydration. Creatinine 1.52 on admission, now to 1.2, creatinine was 0.8 about a year ago. Serial BMPs 5. Thrombocytopenia, acute, present on admission, Probably related to her sepsis, decline is too quick for HIT. Will continue to follow. Serial CBCs 6. DM2, chronic - will hold home lantus given hypoglycemia today, likely in setting of sepsis. - continue sliding scale insulin coverage. code: Full, surrogate decision maker is patient's nieces Dispo: Inpatient, pending PT / OT for recommendations on discharge home vs SNF. DVT: continue HSQ, monitoring plt function currently.
[2020-04-17] MEDS: LORazepam 2 MG/ML INJ 0.5 MG IV (19:47)
[2020-04-18] VITALS (10 sets, daily range): BP systolic 126–167; BP diastolic 67–96; PULSE 90–104; RESP 16–20; TEMP 36.2–37.1; O2SAT 95–100
[2020-04-18] MEDS: SODIUM CHLORIDE 0.9% 1,000 ML 125 ML IV ×2 (03:14→17:15)
[2020-04-18 05:46] LABS: BUN Creatinine Ratio 25.8 (6-22); Blood Urea Nitrogen 23 mg/dL (7-17); Calcium 8.2 mg/dL (8.4-10.2); Carbon Dioxide 22 mmol/L (22-32); Chloride 103 mmol/L (98-107); Estimated Glomerular Filt Rate > 60.0 mL/min (>60); Glucose 119 mg/dL (80-110); HEMOLYSIS < 15 (0-50); Magnesium 1.6 mg/dL (1.6-2.3); Potassium 3.1 mmol/L (3.4-5.1); Sodium 130 mmol/L (137-145)
[2020-04-18 05:47] LABS: Add Manual Diff / Slide Review NO; Basophils Absolute Auto 0 /uL (0-100); Basophils Percent Auto 0.2 % (0-2); Eosinophils Absolute Auto 100 /uL (0-450); Eosinophils Percent Auto 1.2 % (2-4); Hematocrit 30.5 % (36-46); Hemoglobin 10.4 g/dL (12.0-16.0); Lymphocytes Absolute Auto 400 /uL (1100-4500); Lymphocytes Percent Auto 3.4 % (25-40); Mean Corpuscular HGB Conc 34.1 % (30-36); Mean Corpuscular Hemoglobin 31.3 PG (26-34); Mean Corpuscular Volume 91.8 fL (80-100); Monocytes Absolute Auto 900 /uL (0-900); Monocytes Percent Auto 7.9 % (3-14); Neutrophils Absolute Auto 10400 /uL (1500-7000); Neutrophils Percent Auto 87.3 % (50-75); Platelet Count 90 X10^3/uL (150-400); Red Blood Cell Count 3.32 X10^6/uL (4.0-5.2); Red Cell Distribution Width 14.7 % (11.6-14.8); White Blood Cell Count 11.9 X10^3/uL (4.5-11.0)
[2020-04-18 06:02] LABS: Procalcitonin 11.5 ng/mL (<0.5)
--- NOTE | 2020-04-18 09:48 | P.PN_ITS ---
Subjective Subjective Date Patient Seen: 04/18/20 Time Patient Seen: 09:48 Interval history: Patient is a 70-year-old female originally from the [facility] who lives with her 2 niece and niece's daughter, Bots[place]an ability is poor and who has a history of dementia DM2, HTN, hyponatremia presents on admission with weakness, gait instability, increased confusion. Admitted for sepsis secondary to likely urinary tract infection and now found E. coli bacteremia. Slightly more somnolent this morning, Niece at bedside said she has been difficult to arouse today and much different than her usual self. WBC slightly up but procalcitonin improving. Urine cultures with starr-sensitive E. coli, given slight rise in leukocytosis will await blood culture sensitivities before narrowing from meropenem. Exam Vital Signs (past 8 hours): - 04/18/20 04:08 04/18/20 04:41 04/18/20 09:01 Temperature 98.3 F 98.1 F Pulse Rate 101 H 94 H Respiratory Rate 18 20 Blood Pressure 147/92 H 156/84 H Pulse Oximetry 96 96 96 Oxygen Delivery Method Room Air Oxygen Flow Rate 0 Narrative Exam Narrative: Constitutional: Frail chronically ill-appearing female NAD laying on hospital bed HEENT: Normocephalic atraumatic. extraocular movements intact. Right pupil approximately 3-4 mm. Left eye enucleated. Patient is edentulous. Oropharynx is clear with moist mucous membranes Neck: Supple without thyromegaly bruits or jugular venous distention Respiratory: Clear to auscultation Cardiovascular: Regular rhythm S1-S2 normal the renal issues rubs gallops present GI: S NT ND, bowel sounds present Musculoskeletal: Full range of motion. No clubbing edema or cyanosis Neuro: non-focal, moves all extremities but increased somnolence. GCS 9 today. Skin: Ecchymosis of the arms bilaterally. Atrophic skin Objective Labs Result Diagrams: 04/18/20 05:22 04/18/20 05:22 Labs: Laboratory Results - last 24 hr 04/18/20 04/18/20 05:22 05:22 WBC 11.9 H RBC 3.32 L Hgb 10.4 L Hct 30.5 L MCV 91.8 MCH 31.3 MCHC 34.1 RDW 14.7 Plt Count 90 L Neut % (Auto) 87.3 H Lymph % (Auto) 3.4 L [place] % (Auto) 7.9 Eos % (Auto) 1.2 L Baso % (Auto) 0.2 Neut # (Auto) 50049 H Lymph # (Auto) 400 L [place] # (Auto) 900 Eos # (Auto) 100 Baso # (Auto) 0 Sodium 130 L Potassium 3.1 L Chloride 103 Carbon Dioxide 22 BUN 23 H Creatinine 0.89 Estimated GFR > 60.0 BUN/Creatinine Ratio 25.8 H Glucose 119 H Calcium 8.2 L Magnesium 1.6 Procalcitonin 11.5 H [facility] Medical History (Updated 04/16/20 @ 11:21 by Ana Anne DO) Dementia Diabetes Hyponatremia Surgical History H/O enucleation of left eyeball Family History Father Diabetes mellitus Smoker Mother Diabetes mellitus Brother Diabetes mellitus Sister Heart attack Daughter Diabetes mellitus Social History household members: family Smoking Status: Never smoker alcohol intake: never Assessment & Plan Assessment & Plan narrative: Patient is a 70-year-old female originally from the [facility] with a past medical history of DM 2, hypertension, And hyponatremia who lives with her 2 niece and niece's daughter, Botswanan ability is poor and who has a history of dementia. Admitted for sepsis secondary to likely urinary tract infection. Somewhat improved today although history is limited given language barrier and dementia. 1. Sepsis, acute, present on admission, without septic shock. SOFA score of 3 based on MINNIE and thrombocytopenia. Also with metabolic encephalopathy on admission, GCS of 9 today. Leukocytosis stable and procalcitonin trending down. -continue antibiotics as noted below. -patient continued on fluids as noted below. -start PT/OT, however too somnolent to participate this morning. 2. acute cystitis, present on admission - started on meropenem initially, will continue until blood culture sensitivities return given slightly worsened leukocytosis today and worsening confusion this AM. Urine cultures with starr-sensitivie E. coli. 3. E. coli bacteremia, acute, present on admission - therapies as noted above. 4. Severe hyponatremia, improved. likely due to hypovolemia. Continue on NS. Na improved appropriately from 117 to 124 on HD#1, 130 today. Will continue to follow. Will decrease NS slightly from 125 to 75 cc per hour. 5. MINNIE, resolved Probably related to her sepsis. There could be an element of IVVD/dehydration. Creatinine 1.52 on admission, now to 0.89 with fluids, creatinine was 0.8 about a year ago. 6. Thrombocytopenia, acute, present on admission, Probably related to her sepsis, decline is too quick for HIT. Slightly improved today with plt count of 90. Will continue to follow. 7. DM2, chronic - will hold home lantus given hypoglycemia on HD#1, likely in setting of sepsis. - continue sliding scale insulin coverage. 8. metabolic encephalopathy, acute, present on admission 9. dementia, chronic 10. hypomagnesemia, acute 11. hypokalemia, acute code: Full, surrogate decision maker is patient's nieces Dispo: Inpatient, pending PT / OT for recommendations on discharge home vs SNF. DVT: continue HSQ, monitoring plt function currently. Scores GCS [place] coma scale eye opening: To pressure [place] coma scale verbal response: Sounds Joann coma scale motor response: Localising Joann coma scale total score: 9
[2020-04-18] MEDS: MEROPENEM 1 GM in SODIUM CHLORIDE 0.9% 100 ML 200 ML IV ×2 (09:53→22:51)
[2020-04-18] MEDS: MAGNESIUM SULFATE 2 GM/50 ML PIGGYBACK IV (10:44)
[2020-04-18] MEDS: POTASSIUM CHLORIDE 40 MEQ in SODIUM CHLORIDE 0.9% 500 ML 130 ML IV (10:53)
--- NOTE | 2020-04-18 11:00 | PT.IPTN ---
Current Diagnoses Sepsis, unspecified organism (04/16/20) Physical Therapy Treatment Note M2 PT-IP Current Condition Start: 04/17/20 08:00 Freq: NEEDED Status: Active Protocol: Document 04/17/20 10:13 AW (Rec: 04/17/20 13:29 AW [id number]) Physical Therapy Current Condition Current Condition Evaluation Date 04/17/20 Treatment Diagnosis sepsis, UTI, generalized weakness, difficulty in walking Onset Date 04/15/20 Precautions Other Precautions falls M3 PT-IP Subjective Start: 04/17/20 08:00 Freq: NEEDED Status: Active Protocol: Document 04/18/20 11:00 AB (Rec: 04/18/20 12:34 AB [id number]) Subjective Physical Therapy Visit Type Type Treatment Note Visit Start Time 11:00 Visit Stop Time 11:35 Total Visit Minutes 35 Number of MERCHANDISING MANAGER Visits 0 Physical Therapy Visit Comments Patient Comments family in room with pt; pt is asleep but able to wake up and agreed to get up. M4 PT-IP Mobility and Gait Start: 04/17/20 08:00 Freq: NEEDED Status: Active Protocol: Document 04/18/20 11:00 AB (Rec: 04/18/20 12:34 AB [email or web address]) PT-Bed Mobility Assessment Supine to Sit Supine to Sit Maximum Assistance,1 Person Assistance,Head of Bed Elevated PT-Transfer Assessment Sit to and From Stand Sit to and from Stand Maximum Assistance,1 Person Assistance,Use of Upper Extremities Equipment Transfer Assistive Device Gait Belt,Front Wheeled Walker Orthotic/Prosthetic Devices or Brace: No Comments Mobility Comments Niece in room and able to translate to pt. pt asleep but woke up and agreed to get up. pt has dx of dementia and requires frequent cues for safety. pt required max A for supine to sit. increase posterior trunk lean noted and cued for leaning forward. pt completed sit to stand max A and cues. instructed pt to push down on FWW for support. required max A for initial walking with increase posterior LOB but midway through ambulation, pt was able to balance better using FWW and with decrease posterior trunk lean. opted to use FWW at this time due to pt's unsteadiness and decrease sitting/standing balance. pt sat on chair and positioned . call light and table placed within reach. informed niece regarding use FWW at this time. pt stated that FWW might not fit in the house. will continue to assess. Gait Assessment Gait Gait Assistance Required: Moderate Assistance,Maximum Assistance,1 Person Assist Distance (Feet) 40 Able to Maintain Weight Bearing Status Yes During Gait Assistive Devices Assistive Device Gait Belt,Front Wheeled Walker Orthotic/Prosthetic Devices or Brace: No Gait Deviations General Gait Pattern Decreased Stride Length, Decreased Feet Clearance,Step- to Gait Factors Limiting Gait Function Factors Limiting Gait Function Decreased Activity Tolerance, Difficulty Following Directions,Poor Balance,Poor Safety Awareness Comments Gait Comments pls refer to mobility section for details PT-Balance Assessment Sitting Balance and Reactions Static Sitting Balance Ability Fair Dynamic Sitting Balance Ability Poor Standing Balance and Reactions Static Standing Balance Ability Poor Dynamic Standing Balance Ability Poor Device Used FWW M5 PT-IP Objective Assessments Start: 04/17/20 08:00 Freq: NEEDED Status: Active Protocol: Document 04/17/20 10:13 AW (Rec: 04/17/20 13:29 AW [id number]) Orientation Orientation/Cognition Level of Alertness Alert Language Function Ability Vietnamese as Second Language Safety Awareness Decreased Safety Awareness Comments Unable to assess orientation due to language barrier. Gross Range of Motion Lower Extremity ROM Assessment Within Functional Limits Strength Lower Extremity Strength Assessment Bilaterally Impaired Comments Strength Comments Pt able to complete SLR in supine. MMT was limited due to communication but functionally pt presents with weakness compared with baseline. Sensation Assessment Comments Sensation Comments Unable to assess. Muscle Tone Muscle Tone WNL Yes M6 PT-IP Treatment Start: 04/17/20 08:00 Freq: NEEDED Status: Active Protocol: Document 04/18/20 11:00 AB (Rec: 04/18/20 12:34 AB [email or web address]) Physical Therapy Treatment Education Education Provided Safety M7 PT-IP Assessment and Plan Start: 04/17/20 08:00 Freq: NEEDED Status: Active Protocol: Document 04/18/20 11:00 AB (Rec: 04/18/20 12:34 AB [email or web address]) PT Summary Assessment and Plan Potential Rehabilitation Potential Fair Summary Impairments Pain,ROM,Strength,Balance, Coordination,Sensation,Tone, Cognition,Bed Mobility, Transfers,Gait,Activity Tolerance Progress Towards Goals Slow Progress due to Medical Issues,Slow Progress due to Activity Tolerance Assessment Summary pt continues to require max A for mobility and has difficulty in following directions. pt will require SNF rehab at this time unless family will be able to provide 24/7 assist and necessary level of care for pt. will conduct caregiver training when appropriate. will continue to assess progress. Goals Bed Mobility Goal Independent Transfer Goal Standby Assistance,Cane,Front Wheeled Walker Gait Goal Standby Assistance,Cane,Front Wheel Walker Gait Distance 100 Other Goals - transfer and gait goals to be achieved with either SBQC or FWW. LTG: progress gait to 50 feet independent without AD Frequency of Treatment Frequency Of Treatment Once a Day Treatment Plan Physical Therapy Treatment Plan Bed Mobility Training,Transfer Training,Gait Training, Therapeutic Exercise,Balance Retraining,Discharge Planning, Neuromuscular Re-ed Other Recommendations and Next Treatment caregiver training when Focus appropriate Precautions Other Precautions falls Recommendations To Nursing Amount of Assist Needed 1 Person Assist Discharge Recommendations PT Discharge Recommendations Home with 24/7 Assist Available,Home Health,SNF Rehab Equipment Needed for Home Before FWW if unsafe with quad cane Discharge Transportation Needs at Discharge Private Vehicle,Wheelchair/ Cabulance
--- NOTE | 2020-04-18 13:29 | OT.IP.TRT ---
Current Diagnoses Sepsis, unspecified organism (04/16/20) Occupational Therapy Treatment Note M2 OT-IP Current Condition Start: 04/17/20 12:27 Freq: Status: Active Protocol: Document 04/17/20 10:25 [facility] (Rec: 04/17/20 12:52 [facility] [id number]) Occupational Therapy Current Condition Current Condition Evaluation Date 04/17/20 Treatment Diagnosis Hypoatremia, UTI Diagnosis Onset Date 04/16/20 M3 OT- IP Subjective and Pain Start: 04/17/20 12:27 Freq: Status: Active Protocol: Document 04/18/20 13:38 [facility] (Rec: 04/18/20 13:51 [facility] [id number]) OT- Subjective Occupational Therapy Visit Type Type Treatment Note Visit Start Time 12:58 Visit Stop Time 13:21 Total Visit Minutes 23 Occupational Therapy Visit Comments Patient Comments Pt's niece in the room and agreed to do caregiver training and also able to translate for the pt. Patient/Caregiver Goals Pt's niece stating due to language barrier and dementia feels it would be best to have pt go home and have home health. OT Pain Assessment Pain When Pain Assessed At Rest Pain Present Pain Present Denied Pain M4 OT- IP ADL's Start: 04/17/20 12:27 Freq: Status: Active Protocol: Document 04/18/20 13:38 [facility] (Rec: 04/18/20 13:51 [facility] [id number]) OT [id number] Comments OT Self-Feeding Comments NOt at meal time. OT ADL-Grooming General Evaluation Grooming Ability Maximum Assistance Comments OT Grooming Comments Assist to help wash the pt's face. OT ADL-Dressing Comments OT Dressing Comments NOt performed. OT ADL-Toileting General Evaluation Toileting Ability Total Assistance Areas Needing Assistance Empty Catheter or Colostomy Comments OT Toileting Comments Giraldo in place. OT ADL-Bathing Comments OT Bathing Comments NOt at this time. M5 OT- IP IADL's Start: 04/17/20 12:27 Freq: Status: Active Protocol: Document 04/17/20 10:25 [facility] (Rec: 04/17/20 12:52 [facility] [id number]) OT-Instrumental Activities of Daily Living Home Safety Awareness Awareness of Need for Assistance at Home Decreased Awareness Ability to Problem Solve Emergency Unable to Problem Solve Situations Medication Management Medication Management Caregiver Administers Money Management Money Management Caregiver Provides Assistance Meal Preparation Meal Preparation Caregiver Provides Assist Corporate Legal Secretary Corporate Legal Secretary Caregiver Provides Assist Driving Driving Caregiver Provides Assist M6 OT- IP Functional Cognition Start: 04/17/20 12:27 Freq: Status: Active Protocol: Document 04/18/20 13:38 [facility] (Rec: 04/18/20 13:51 [facility] [id number]) Cognitive Factors Limiting Selfcare Function Cognitive Ability Level of Alertness Alert,Confusional State Patient Orientation Name Cognitive Comments Cognitive Assessment Comments Swazi is pt's primary language and pt appeared to be able to follow one step commands when her niece was talking and directing her in her [place] tongue. Pt however still needing tactile and visual cues to follow. OT- Vision and Hearing OT- Vision Assessment Vision Assessment Comments Pt's has left eye closed, h/o enucleation of left eyeball. M7 OT- IP Mobility and Balance Start: 04/17/20 12:27 Freq: Status: Active Protocol: Document 04/18/20 13:38 [facility] (Rec: 04/18/20 13:51 [facility] [id number]) OT- Bed Mobility Assessment Sit to Supine Sit to Supine Assist Moderate Assistance OT-Transfer Assessment Sit to and From Stand Sit to and from Stand Minimal Assistance Transfers Transfer Ability Minimal Assistance,Moderate Assistance Technique Transfer Destination Bed,Chair Devices Transfer Assistive Devices Gait Belt,Front Wheeled Walker Comments Mobility Comments Pt tends to lean with her legs on the back of the recliner when standing up with SISI to FWW. Pt cga to MODA as at times leaning backwards onto her heel and needing physical assist for loss of balance. Pt 's niece has good understanding and safety to be able to use the gait belt and how to assist pt with transfer with FWW at this time . Pt's niece states the apt maybe too small for FWW therefore to try quad cane or hand held assist tomorrow. OT- Balance Assessment Sitting Balance and Reactions Static Sitting Balance Ability Good Standing Balance and Reactions Static Standing Balance Ability Poor Dynamic Standing Balance Ability Poor M8 OT- IP Objective Assessments Start: 04/17/20 12:27 Freq: Status: Active Protocol: Document 04/17/20 10:25 [facility] (Rec: 04/17/20 12:52 [facility] [id number]) OT Gross Range of Motion Upper Extremity Range of Motion ROM Impairments Not able to fully assess due to language barrier. M9 OT- IP Assessment and Plan Start: 04/17/20 12:27 Freq: Status: Active Protocol: Document 04/18/20 13:38 [facility] (Rec: 04/18/20 13:51 [facility] [id number]) OT Summary Assessment and Plan Potential Rehabilitation Potential Good Analytic Complexity at Evaluation Low Summary OT Impairments Balance,Functional Cognition, Functional Mobility,Self- Feeding,Grooming,Dressing, Toileting,Bathing,Toilet Transfers,Shower Transfers, Activity Tolerance Progress Towards Goals Slow Progress due to Medical Issues,Slow Progress due to Activity Tolerance,Slow Progress due to Cognition Assessment Summary Pt today noted better stability on her feet and her niece able to safely assist her for transfers, ambulation with FWW , and bed mobility. Pt's niece preferes pt to go home with assist and home health at this time. Goals Grooming Goal Minimal Assistance Dressing Goal Minimal Assistance Toileting Goal Minimal Assistance Bathing Goal Moderate Assistance Toilet Transfer Goal Standby Assistance Shower Transfer Goal Standby Assistance Patient/Caregiver Education Goal Caregiver Independent Assisting Patient Days to Meet Goals 4 Frequency of Treatment Frequency Of Treatment Once a Day Treatment Plan OT Treatment Plan ADL Training,Functional Mobility,Patient/Family Education,Discharge Planning Other Treatment Recommendations and Next caregiver training Treatment Focus Discharge Recommendations OT Discharge Recommendations Home with 02/09 Assist Available,Home Health Transportation Needs at Discharge Private Vehicle
[2020-04-18] MEDS: INSULIN ASPART 100 UNIT/ML INSULN PEN SUBCUT ×2 (16:32→22:53)
[2020-04-18] MEDS: HEPARIN 5,000 UNIT/ML VIAL 5000 UNIT SUBCUT (22:47)
[2020-04-18] MEDS: DOCUSATE 100 MG CAPSULE PO (22:52)
[2020-04-18] MEDS: LORazepam 2 MG/ML INJ 0.5 MG IV (22:56)
[2020-04-19] VITALS (10 sets, daily range): BP systolic 130–173; BP diastolic 59–85; PULSE 78–95; RESP 14–20; TEMP 35.9–37.2; O2SAT 95–100
[2020-04-19 06:19] LABS: BUN Creatinine Ratio 25.3 (6-22); Blood Urea Nitrogen 23 mg/dL (7-17); Carbon Dioxide 23 mmol/L (22-32); Chloride 102 mmol/L (98-107); Estimated Glomerular Filt Rate > 60.0 mL/min (>60); Glucose 162 mg/dL (80-110); HEMOLYSIS < 15 (0-50); Magnesium 1.8 mg/dL (1.6-2.3); Potassium 3.3 mmol/L (3.4-5.1); Sodium 130 mmol/L (137-145)
[2020-04-19 06:30] LABS: Add Manual Diff / Slide Review NO; Basophils Absolute Auto 0 /uL (0-100); Basophils Percent Auto 0.3 % (0-2); Eosinophils Absolute Auto 200 /uL (0-450); Eosinophils Percent Auto 2.1 % (2-4); Hematocrit 28.8 % (36-46); Hemoglobin 9.8 g/dL (12.0-16.0); Lymphocytes Absolute Auto 600 /uL (1100-4500); Lymphocytes Percent Auto 7.9 % (25-40); Mean Corpuscular HGB Conc 34.1 % (30-36); Mean Corpuscular Hemoglobin 31.2 PG (26-34); Mean Corpuscular Volume 91.5 fL (80-100); Monocytes Absolute Auto 1200 /uL (0-900); Monocytes Percent Auto 15.4 % (3-14); Neutrophils Absolute Auto 5800 /uL (1500-7000); Neutrophils Percent Auto 74.3 % (50-75); Platelet Count 90 X10^3/uL (150-400); Red Blood Cell Count 3.15 X10^6/uL (4.0-5.2); Red Cell Distribution Width 14.9 % (11.6-14.8); White Blood Cell Count 7.8 X10^3/uL (4.5-11.0)
--- NOTE | 2020-04-19 09:38 | PT.IPTN ---
Current Diagnoses Sepsis, unspecified organism (04/16/20) Physical Therapy Treatment Note M2 PT-IP Current Condition Start: 04/17/20 08:00 Freq: NEEDED Status: Active Protocol: Document 04/17/20 10:13 AW (Rec: 04/17/20 13:29 AW [id number]) Physical Therapy Current Condition Current Condition Evaluation Date 04/17/20 Treatment Diagnosis sepsis, UTI, generalized weakness, difficulty in walking Onset Date 04/15/20 Precautions Other Precautions falls M3 PT-IP Subjective Start: 04/17/20 08:00 Freq: NEEDED Status: Active Protocol: Document 04/19/20 09:38 AB (Rec: 04/19/20 11:46 AB [id number]) Subjective Physical Therapy Visit Type Type Treatment Note Visit Start Time 09:38 Visit Stop Time 09:57 Total Visit Minutes 19 Number of ACID DIPPER Visits 0 M4 PT-IP Mobility and Gait Start: 04/17/20 08:00 Freq: NEEDED Status: Active Protocol: Document 04/19/20 09:38 AB (Rec: 04/19/20 11:46 AB [id number]) PT-Bed Mobility Assessment Supine to Sit Supine to Sit Moderate Assistance,Head of Bed Elevated PT-Transfer Assessment Sit to and From Stand Sit to and from Stand Moderate Assistance,Maximum Assistance,1 Person Assistance ,Use of Upper Extremities Equipment Transfer Assistive Device Gait Belt,Front Wheeled Walker Orthotic/Prosthetic Devices or Brace: No Transfers Transfer Destination Chair Transfer Technique ambulated using FWW Transfer Ability Level of Assist Maximum Assistance,1 Person Assistance,Use of Upper Extremities Comments Mobility Comments completed supine to sit mod A with HOB elevated. pt has dx of dementia and needs cues to initiate movement. pt was able to sit on EOB min A. completed sit to stand mod to max A and cues and requires max A to maintain standing balance. pt continues to have increase posterior trunk LOB. ambulated in room using FWW ~ 100 ft mod to max A and cues. presents with decrease step width and length and requires assist to maneuver FWW. pt sat on chair. positioned on chair. call light and table placed within reach. Gait Assessment Gait Gait Assistance Required: Moderate Assistance,Maximum Assistance,1 Person Assist Distance (Feet) 100 Able to Maintain Weight Bearing Status Yes During Gait Assistive Devices Assistive Device Gait Belt,Front Wheeled Walker Orthotic/Prosthetic Devices or Brace: No Gait Deviations General Gait Pattern Antalgic,Decreased Stride Length,Decreased Feet Clearance,Narrow Based Gait, Step-to Gait Factors Limiting Gait Function Factors Limiting Gait Function Decreased Activity Tolerance, Decreased Strength,Difficulty Following Directions,Limited Range of Motion,Poor Balance, Poor Safety Awareness M5 PT-IP Objective Assessments Start: 04/17/20 08:00 Freq: NEEDED Status: Active Protocol: Document 04/17/20 10:13 AW (Rec: 04/17/20 13:29 AW [id number]) Orientation Orientation/Cognition Level of Alertness Alert Language Function Ability Tajik as Second Language Safety Awareness Decreased Safety Awareness Comments Unable to assess orientation due to language barrier. Gross Range of Motion Lower Extremity ROM Assessment Within Functional Limits Strength Lower Extremity Strength Assessment Bilaterally Impaired Comments Strength Comments Pt able to complete SLR in supine. MMT was limited due to communication but functionally pt presents with weakness compared with baseline. Sensation Assessment Comments Sensation Comments Unable to assess. Muscle Tone Muscle Tone WNL Yes M6 PT-IP Treatment Start: 04/17/20 08:00 Freq: NEEDED Status: Active Protocol: Document 04/19/20 09:38 AB (Rec: 04/19/20 11:46 AB [id number]) Physical Therapy Treatment Education Education Provided Safety M7 PT-IP Assessment and Plan Start: 04/17/20 08:00 Freq: NEEDED Status: Active Protocol: Document 04/19/20 09:38 AB (Rec: 04/19/20 11:46 AB [id number]) PT Summary Assessment and Plan Potential Rehabilitation Potential Fair Summary Impairments Pain,ROM,Strength,Balance, Coordination,Sensation, Cognition,Bed Mobility, Transfers,Gait,Activity Tolerance Progress Towards Goals Slow Progress due to Medical Issues Assessment Summary pt continues to require max A with mobility and max cues. has decrease standing balance affecting ambulation with increase posterior trunk LOB requiring max A for stability. at this time, pt will require SNF rehab to improve mobility independence. If pt goes home, will have to conduct caregiver training. will continue to assess progress. Goals Bed Mobility Goal Standby Assistance Transfer Goal Contact Guard Assistance,Cane, Front Wheeled Walker Gait Goal Contact Guard Assistance,Cane, Front Wheel Walker Gait Distance 150 Other Goals improve transfers to SBA using quad cane improve ambulation using quad cane SBA 150 ft Days to Meet Goals 10 Frequency of Treatment Frequency Of Treatment Once a Day Treatment Plan Physical Therapy Treatment Plan Bed Mobility Training,Transfer Training,Gait Training, Therapeutic Exercise,Balance Retraining,Discharge Planning, Neuromuscular Re-ed Other Recommendations and Next Treatment caregiver training when Focus appropriate Precautions Other Precautions falls Recommendations To Nursing Amount of Assist Needed 1 Person Assist Discharge Recommendations PT Discharge Recommendations Home with 24/7 Assist Available,Home Health,SNF Rehab Equipment Needed for Home Before FWW if unsafe with quad cane Discharge Transportation Needs at Discharge Private Vehicle,Wheelchair/ Cabulance
[2020-04-19] MEDS: HEPARIN 5,000 UNIT/ML VIAL 5000 UNIT SUBCUT ×2 (09:55→21:39)
[2020-04-19] MEDS: DOCUSATE 100 MG CAPSULE PO ×2 (09:55→21:39)
[2020-04-19] MEDS: INSULIN ASPART 100 UNIT/ML INSULN PEN SUBCUT ×4 (09:55→21:41)
[2020-04-19] MEDS: MEROPENEM 1 GM in SODIUM CHLORIDE 0.9% 100 ML 200 ML IV (09:57)
[2020-04-19] MEDS: SODIUM CHLORIDE 0.9% FLUSH 10 ML IV (09:58)
[2020-04-19] MEDS: POTASSIUM CHLORIDE 20 MEQ TAB 40 MEQ PO (09:58)
--- NOTE | 2020-04-19 11:15 | PC.NURSE ---
Addendum entered by Sia Felix R.N. 04/19/20 11:49: Patient pulled out her midline that was placed around 0800am, site is bruised, pressure dressing applied to area. aware and states to not do anything at this time, she may order po antibiotics for patient. Original Note: Assess- Patient is not oriented but alert, she knows herself and familiar faces. She was up with physical therapy and is a 1 person assist with the walker. Patient is confused and does try to get up on occasion. She likes to fold up wash clothes, otherwise will pick at her dowling line, and iv line. She had a ml placed to her r.upper extremity and this is infusing NS at 75cc/hr. Patient is kind and helpful. BS CTA, urine yellow in dowling bag, and heart rate regular.
--- NOTE | 2020-04-19 15:36 | OT.IP.TRT ---
Current Diagnoses Sepsis, unspecified organism (04/16/20) Occupational Therapy Treatment Note M2 OT-IP Current Condition Start: 04/17/20 12:27 Freq: Status: Active Protocol: Document 04/17/20 10:25 [facility] (Rec: 04/17/20 12:52 [facility] [id number]) Occupational Therapy Current Condition Current Condition Evaluation Date 04/17/20 Treatment Diagnosis Hypoatremia, UTI Diagnosis Onset Date 04/16/20 M3 OT- IP Subjective and Pain Start: 04/17/20 12:27 Freq: Status: Active Protocol: Document 04/19/20 15:40 [facility] (Rec: 04/19/20 15:50 [facility] [id number]) OT- Subjective Occupational Therapy Visit Type Type Treatment Note Visit Start Time 15:05 Visit Stop Time 15:36 Total Visit Minutes 31 Occupational Therapy Visit Comments Patient Comments Pt asleep and after able to get pt to agree to get up. OT Pain Assessment Pain When Pain Assessed At Rest Pain Present Pain Present Unable to Respond M4 OT- IP ADL's Start: 04/17/20 12:27 Freq: Status: Active Protocol: Document 04/19/20 15:40 [facility] (Rec: 04/19/20 15:50 [facility] [id number]) OT [id number] Comments OT Self-Feeding Comments NOt at meal time, per CHANNEL SUPERVISOR pt needs 1:1 assist for meals. OT ADL-Grooming Comments OT Grooming Comments NOt performed. OT ADL-Dressing General Eval Lower Body Dressing Ability Maximum Assistance Areas Needing Assistance Pants/Shorts,Socks OT ADL-Toileting General Evaluation Toileting Ability Total Assistance Areas Needing Assistance Empty Catheter or Colostomy Comments OT Toileting Comments Giraldo in place. OT ADL-Bathing Comments OT Bathing Comments NOt at this time due to decreased balance, sponge bath more appropriate. M5 OT- IP IADL's Start: 04/17/20 12:27 Freq: Status: Active Protocol: Document 04/17/20 10:25 [facility] (Rec: 04/17/20 12:52 [facility] [id number]) OT-Instrumental Activities of Daily Living Home Safety Awareness Awareness of Need for Assistance at Home Decreased Awareness Ability to Problem Solve Emergency Unable to Problem Solve Situations Medication Management Medication Management Caregiver Administers Money Management Money Management Caregiver Provides Assistance Meal Preparation Meal Preparation Caregiver Provides Assist Medical Office Receptionist Medical Office Receptionist Caregiver Provides Assist Driving Driving Caregiver Provides Assist M6 OT- IP Functional Cognition Start: 04/17/20 12:27 Freq: Status: Active Protocol: Document 04/19/20 15:40 [facility] (Rec: 04/19/20 15:50 [facility] [id number]) Cognitive Factors Limiting Selfcare Function Cognitive Ability Level of Alertness Alert,Confusional State Patient Orientation Name Cognitive Comments Cognitive Assessment Comments Zoraida is pt's primary language family not present to assist with translation, therefore having to use visual and tactile cues for pt to follow. M7 OT- IP Mobility and Balance Start: 04/17/20 12:27 Freq: Status: Active Protocol: Document 04/19/20 15:40 [facility] (Rec: 04/19/20 15:50 [facility] [id number]) OT- Bed Mobility Assessment Supine to Sit Supine to Sit Assist Moderate Assistance Sit to Supine Sit to Supine Assist Moderate Assistance OT-Transfer Assessment Sit to and From Stand Sit to and from Stand Moderate Assistance Transfers Transfer Ability Moderate Assistance,Maximum Assistance Technique Transfer Destination Bed,Chair Devices Transfer Assistive Devices Gait Belt,Small Based Quad Cane Comments Mobility Comments Today pt needing more assist to stand and also more assist for transfer with quad cane. Pt heavily leans backwards and unable to right herself. Pt is a high fall risk. OT- Balance Assessment Sitting Balance and Reactions Static Sitting Balance Ability Fair Standing Balance and Reactions Static Standing Balance Ability Poor Dynamic Standing Balance Ability Poor M8 OT- IP Objective Assessments Start: 04/17/20 12:27 Freq: Status: Active Protocol: Document 04/17/20 10:25 [facility] (Rec: 04/17/20 12:52 [facility] [id number]) OT Gross Range of Motion Upper Extremity Range of Motion ROM Impairments Not able to fully assess due to language barrier. M9 OT- IP Assessment and Plan Start: 04/17/20 12:27 Freq: Status: Active Protocol: Document 04/19/20 15:40 [facility] (Rec: 04/19/20 15:50 [facility] [id number]) OT Summary Assessment and Plan Potential Rehabilitation Potential Good Analytic Complexity at Evaluation Low Summary OT Impairments Balance,Functional Cognition, Functional Mobility,Self- Feeding,Grooming,Dressing, Toileting,Bathing,Toilet Transfers,Shower Transfers, Activity Tolerance Progress Towards Goals Slow Progress due to Medical Issues,Slow Progress due to Activity Tolerance,Slow Progress due to Cognition Assessment Summary Pt more unstable of her feet and questionable whether her family is able to provide enough assist for the pt. Therefore suggest skilled rehab versus home with assist and home health after completion of caregiver training. Pt is a high fall risk. Due to language barrier , ideally best for pt to go home with assist and home health. FAmily not present today for OT session. Goals Grooming Goal Minimal Assistance Dressing Goal Minimal Assistance Toileting Goal Minimal Assistance Bathing Goal Moderate Assistance Toilet Transfer Goal Standby Assistance Shower Transfer Goal Standby Assistance Patient/Caregiver Education Goal Caregiver Independent Assisting Patient Days to Meet Goals 7 Frequency of Treatment Frequency Of Treatment Once a Day Treatment Plan OT Treatment Plan ADL Training,Functional Mobility,Patient/Family Education,Discharge Planning Other Treatment Recommendations and Next caregiver training Treatment Focus Discharge Recommendations OT Discharge Recommendations Home with 02/09 Assist Available,Home Health,SNF Rehab Transportation Needs at Discharge Wheelchair/Cabulance
--- NOTE | 2020-04-19 15:55 | CM.DPC ---
DCP Cont: Per MD, pt not medically stable to d/c yet today and waiting for cultures to return to determine abx needs. Plan has been return home with family assist and possibly HH at d/c. Pt does not speak or potentially even understand Norwegian as she is from the [facility] and family has to translate for pt. Due to pt's dementia, infection, and language barrier it is difficult to determine pt's ability to comprehend recommendations and all goes through very supportive family. Per PT at end of shift about 1600, they were initially recommending HH at d/c but pt declined in her ambulation today and potential for SNF need but with pt needing restaurant management internship and family not allowed into SNF this could be a barrier and pt has Medicaid for insurance which is also a barrier to d/c. Dtr Sindi feels she can meet pt's needs at home as she is a DIRECTOR CORPORATE but some concern regarding other family members abilities. PT/OT hopeful pt will regain her progress tomorrow as all agree pt would likely do better at home with family. Plan: SW to follow closely in the morning with PT/OT and family to determine if safe plan can be secured for home with HH. ABBY Rogers
--- NOTE | 2020-04-19 16:51 | PM.PN.1 ---
Subjective Subjective Date Patient Seen: 04/19/20 Interval history: The patient is a 70-year-old female with a history of type 2 diabetes hypertension and dementia who is admitted to the hospital with sepsis secondary to E coli bacteremia and E coli UTI. The patient speaks Tommy ease and is unable to communicate. I have called her daughter twice and have been unable to reach any family. The patient has pulled her midline twice. She is not tolerating and IV. She is afebrile today and her white count is now normal. The patient was working with therapy earlier. It is unclear what her baseline is. Exam Vital Signs (past 8 hours): - 04/19/20 11:42 04/19/20 15:00 04/19/20 15:53 Temperature 96.6 F L 97.6 F 99.0 F Pulse Rate 82 78 95 H Respiratory Rate 20 14 16 Blood Pressure 162/78 H 134/74 158/77 H Pulse Oximetry 98 98 96 Oxygen Delivery Method Room Air Oxygen Flow Rate 0 Narrative Exam Narrative: Elderly female difficult to communicate with due to language barrier Lungs: Clear to auscultation Cardiac exam: Regular rate and rhythm normal S1-S2 with a 2/6 systolic ejection Abdomen: Soft nontender nondistended Extremities: No edema, multiple bruising on the upper extremity Objective Labs Result Diagrams: 04/19/20 05:30 04/19/20 05:30 Labs: Laboratory Results - last 24 hr 04/19/20 04/19/20 05:30 05:30 WBC 7.8 RBC 3.15 L Hgb 9.8 L Hct 28.8 L MCV 91.5 MCH 31.2 MCHC 34.1 RDW 14.9 H Plt Count 90 L Neut % (Auto) 74.3 Lymph % (Auto) 7.9 L [place] % (Auto) 15.4 H Eos % (Auto) 2.1 Baso % (Auto) 0.3 Neut # (Auto) 5800 Lymph # (Auto) 600 L [place] # (Auto) 1200 H Eos # (Auto) 200 Baso # (Auto) 0 Sodium 130 L Potassium 3.3 L Chloride 102 Carbon Dioxide 23 BUN 23 H Creatinine 0.91 Estimated GFR > 60.0 BUN/Creatinine Ratio 25.3 H Glucose 162 H Calcium 8.0 L Magnesium 1.8 PFSH Medical History (Updated 04/16/20 @ 11:21 by Ana Anne DO) Dementia Diabetes Hyponatremia Surgical History H/O enucleation of left eyeball Family History Father Diabetes mellitus Smoker Mother Diabetes mellitus Brother Diabetes mellitus Sister Heart attack Daughter Diabetes mellitus Social History household members: family Smoking Status: Never smoker alcohol intake: never Assessment & Plan Assessment & Plan narrative: Assessment & Plan narrative: Patient is a 70-year-old female originally from the [facility] with a past medical history of DM 2, hypertension, And hyponatremia who lives with her 2 niece and niece's daughter, Ukrainian ability is poor and who has a history of dementia. Admitted for sepsis secondary to likely urinary tract infection. Somewhat improved today although history is limited given language barrier and dementia. 1. Sepsis, acute, present on admission, without septic shock. SOFA score of 3 based on MINNIE and thrombocytopenia. Also with metabolic encephalopathy on admission, GCS of 9 today. Leukocytosis stable and procalcitonin trending down. -continue antibiotics as noted below. -patient continued on fluids as noted below. -start PT/OT, however too somnolent to participate this morning. -IV antibiotics discontinue as the patient has removed her midline twice -given she is afebrile, white count normal, hemodynamically stable, will switch antibiotics to oral 2. acute cystitis, present on admission - started on meropenem initially, will continue until blood culture sensitivities return given slightly worsened leukocytosis today and worsening confusion this AM. Urine cultures with starr-sensitivie E. coli. -discontinue meropenem, patient is now on levofloxacin as she no longer has IV access 3. E. coli bacteremia, acute, present on admission - therapies as noted above. -E coli is pansensitive to all antibiotics tested -continue levofloxacin 4. Severe hyponatremia, improved. likely due to hypovolemia. Continue on NS. Na improved appropriately from 117 to 124 on HD#1, 130 today. Will continue to follow. Will decrease NS slightly from 125 to 75 cc per hour. -IV fluids discontinued -serum sodium improved 5. MINNIE, resolved Probably related to her sepsis. There could be an element of IVVD/dehydration. Creatinine 1.52 on admission, now to 0.89 with fluids, creatinine was 0.8 about a year ago. 6. Thrombocytopenia, acute, present on admission, Probably related to her sepsis, decline is too quick for HIT. Slightly improved today with plt count of 90. Will continue to follow. -a platelet count of to 128 7. DM2, chronic - will hold home lantus given hypoglycemia on HD#1, likely in setting of sepsis. - continue sliding scale insulin coverage. 8. metabolic encephalopathy, acute, present on admission 9. dementia, chronic 10. hypomagnesemia, acute 11. hypokalemia, acute Will replace Disposition, as the patient is known oral antibiotics, hemodynamically stable, and likely with sepsis secondary to UTI, E coli bacteremia, she can likely discharge home tomorrow.
[2020-04-19] MEDS: POTASSIUM CHLORIDE 20 MEQ/15 ML UDC 40 MEQ PO (17:17)
[2020-04-19] MEDS: MELATONIN 3 MG TABLET 6 MG PO (21:39)
[2020-04-19] MEDS: AMOXICILLIN/CLAV 875/125 MG 1 TAB PO (21:39)
[2020-04-20] VITALS (9 sets, daily range): BP systolic 134–145; BP diastolic 47–74; PULSE 86–88; RESP 14–18; TEMP 36.8–37.9; O2SAT 98–100
--- NOTE | 2020-04-20 03:15 | PC.NURSE ---
at start of shift pt's bp was 173/85 a little higher than normal, provider was notified and no new orders were given, bp was rechecked at 0200 and bp came down to 134/73.
[2020-04-20 06:35] LABS: BUN Creatinine Ratio 26.4 (6-22); Blood Urea Nitrogen 24 mg/dL (7-17); Calcium 8.3 mg/dL (8.4-10.2); Carbon Dioxide 28 mmol/L (22-32); Chloride 98 mmol/L (98-107); Estimated Glomerular Filt Rate > 60.0 mL/min (>60); Glucose 201 mg/dL (80-110); HEMOLYSIS < 15 (0-50); Magnesium 1.5 mg/dL (1.6-2.3); Potassium 4.1 mmol/L (3.4-5.1); Sodium 129 mmol/L (137-145)
[2020-04-20 06:42] LABS: Hematocrit 30.2 % (36-46); Hemoglobin 10.2 g/dL (12.0-16.0); Mean Corpuscular HGB Conc 33.7 % (30-36); Mean Corpuscular Hemoglobin 31.1 PG (26-34); Mean Corpuscular Volume 92.4 fL (80-100); Platelet Count 95 X10^3/uL (150-400); Red Blood Cell Count 3.27 X10^6/uL (4.0-5.2); Red Cell Distribution Width 15.1 % (11.6-14.8); White Blood Cell Count 10.4 X10^3/uL (4.5-11.0)
[2020-04-20 06:43] LABS: Add Manual Diff / Slide Review YES
[2020-04-20 07:48] LABS: Neutrophils Absolute Manual 8112 /uL (3000-5900); Total Cells Counted 100
[2020-04-20 07:50] LABS: RBC Morphology Normal Morphology
[2020-04-20] MEDS: DOCUSATE 100 MG CAPSULE PO (07:58)
[2020-04-20] MEDS: AMOXICILLIN/CLAV 875/125 MG 1 TAB PO (07:58)
[2020-04-20] MEDS: INSULIN ASPART 100 UNIT/ML INSULN PEN SUBCUT ×2 (07:59→11:46)
[2020-04-20] MEDS: HEPARIN 5,000 UNIT/ML VIAL 5000 UNIT SUBCUT (07:59)
--- NOTE | 2020-04-20 08:30 | PC.NURSE ---
Assess- Patient is A&Ox1, she knows who she is and is able to follow some commands. She is from the [facility] and does not speak Bahraini. She does understand some phrases and questions in turkmen. Up in the chair now, patient has a 1 to 1 caregiver. Eating breakfast. Blood Sugar 178, 1u of insulin given. Heparin injection given in her l.lower abdomen and she tolerated this well. Patients dowling catheter was taken out by evening shift RN and she has been incontinent of urine. She has a brief on, niece has not been here to visit yet. Denies pain or discomfort.
--- NOTE | 2020-04-20 10:00 | PT.IPTN ---
Current Diagnoses Sepsis, unspecified organism (04/16/20) Physical Therapy Treatment Note M2 PT-IP Current Condition Start: 04/17/20 08:00 Freq: NEEDED Status: Active Protocol: Document 04/17/20 10:13 AW (Rec: 04/17/20 13:29 AW [id number]) Physical Therapy Current Condition Current Condition Evaluation Date 04/17/20 Treatment Diagnosis sepsis, UTI, generalized weakness, difficulty in walking Onset Date 04/15/20 Precautions Other Precautions falls M3 PT-IP Subjective Start: 04/17/20 08:00 Freq: NEEDED Status: Active Protocol: Document 04/20/20 10:00 AB (Rec: 04/20/20 11:26 AB [id number]) Subjective Physical Therapy Visit Type Type Treatment Note Visit Start Time 10:00 Visit Stop Time 10:14 Total Visit Minutes 14 Number of SYSTEM DEVELOPER ASSOCIATE MANAGER Visits 0 M4 PT-IP Mobility and Gait Start: 04/17/20 08:00 Freq: NEEDED Status: Active Protocol: Document 04/20/20 10:00 AB (Rec: 04/20/20 11:26 AB [id number]) PT-Bed Mobility Assessment Supine to Sit Supine to Sit Minimal Assistance,Head of Bed Elevated Sit to Supine Sit to Supine Minimal Assistance Scooting Scooting to Edge of Bed Contact Guard Assistance PT-Transfer Assessment Sit to and From Stand Sit to and from Stand Moderate Assistance,Maximum Assistance,1 Person Assistance ,Use of Upper Extremities Equipment Transfer Assistive Device Gait Belt,Small Based Quad Cane Orthotic/Prosthetic Devices or Brace: No Transfer Ability Level of Assist Moderate Assistance,Maximum Assistance Comments Mobility Comments pt is more responsive today but still has difficulty following direction and is easily distracted. requires cues to initiate tasks. completed supine to sit with HOB elevated min A and cues. pt was able to sit on EOB SBA. completed sit to stand mod to max A and continues to have increase posterior trunk LOB requiring max A for stability and positioning. ambulated in room using SBQC ~ 40 ft mod to max A and max cues. continues to have posterior LOB and unable to correct without assistance. pt directed back to bed. NAC stated that pt has been up on chair since 430 am. pt completed sit to supine min A with LE and initial tactile cues to initiate laying back in bed. positioned pt in bed. pt with NAC in room. Gait Assessment Gait Gait Assistance Required: Moderate Assistance,Maximum Assistance Distance (Feet) 40 Able to Maintain Weight Bearing Status Yes During Gait Assistive Devices Assistive Device Gait Belt,Small Based Quad Cane Orthotic/Prosthetic Devices or Brace: No Gait Deviations General Gait Pattern Antalgic,Decreased Stride Length,Decreased Feet Clearance,Step-to Gait Factors Limiting Gait Function Factors Limiting Gait Function Decreased Activity Tolerance, Decreased Strength,Difficulty Following Directions,Poor Balance,Poor Safety Awareness PT-Balance Assessment Sitting Balance and Reactions Static Sitting Balance Ability Fair Dynamic Sitting Balance Ability Fair Standing Balance and Reactions Static Standing Balance Ability Poor Dynamic Standing Balance Ability Poor Device Used without AD/SBQC M5 PT-IP Objective Assessments Start: 04/17/20 08:00 Freq: NEEDED Status: Active Protocol: Document 04/17/20 10:13 AW (Rec: 04/17/20 13:29 AW [id number]) Orientation Orientation/Cognition Level of Alertness Alert Language Function Ability Armenian as Second Language Safety Awareness Decreased Safety Awareness Comments Unable to assess orientation due to language barrier. Gross Range of Motion Lower Extremity ROM Assessment Within Functional Limits Strength Lower Extremity Strength Assessment Bilaterally Impaired Comments Strength Comments Pt able to complete SLR in supine. MMT was limited due to communication but functionally pt presents with weakness compared with baseline. Sensation Assessment Comments Sensation Comments Unable to assess. Muscle Tone Muscle Tone WNL Yes M6 PT-IP Treatment Start: 04/17/20 08:00 Freq: NEEDED Status: Active Protocol: Document 04/20/20 10:00 AB (Rec: 04/20/20 11:26 AB [id number]) Physical Therapy Treatment Education Education Provided Safety M7 PT-IP Assessment and Plan Start: 04/17/20 08:00 Freq: NEEDED Status: Active Protocol: Document 04/20/20 10:00 AB (Rec: 04/20/20 11:26 AB [id number]) PT Summary Assessment and Plan Potential Rehabilitation Potential Fair Summary Impairments Pain,ROM,Strength,Balance, Coordination,Sensation,Tone, Cognition,Bed Mobility, Transfers,Gait,Activity Tolerance Progress Towards Goals Slow Progress - Other Assessment Summary pt is progressing slowly but able to sit on EOB with SBA and more responsive to intructions. pt continues to require mod to max A with transfers and ambulation and will need 24/7 assist available. pt will require SNF rehab but if family will be able to provide necessary 24/7 assistance to pt, pt may go home and will benefit from HHPT. Goals Bed Mobility Goal Standby Assistance Transfer Goal Contact Guard Assistance,Cane, Front Wheeled Walker Gait Goal Contact Guard Assistance,Cane, Front Wheel Walker Gait Distance 150 Other Goals improve transfers to SBA using quad cane improve ambulation using quad cane SBA 150 ft Days to Meet Goals 10 Frequency of Treatment Frequency Of Treatment Once a Day Treatment Plan Physical Therapy Treatment Plan Bed Mobility Training,Transfer Training,Gait Training, Therapeutic Exercise,Balance Retraining,Discharge Planning, Neuromuscular Re-ed Other Recommendations and Next Treatment caregiver training when Focus appropriate Precautions Other Precautions falls Recommendations To Nursing Amount of Assist Needed 1 Person Assist Discharge Recommendations PT Discharge Recommendations Home with 24/ Assist Available,Home Health,SNF Rehab Equipment Needed for Home Before FWW if unsafe with quad cane Discharge Transportation Needs at Discharge Private Vehicle,Wheelchair/ Cabulance
--- NOTE | 2020-04-20 11:14 | PM.DS.1 ---
History of Present Illness History of Present Illness Date Patient Seen: 04/20/20 Chief complaint: diabetic, UTI Sx Narrative: Patient is a 70-year-old female originally from the [facility] who lives with her 2 niece and niece'rhonda, Czech ability is poor and who has a history of dementia DM2, HTN, hyponatremia presents on admission with weakness, gait instability, increased confusion. Niece is at the bedside in even from the niece the history is somewhat vague. However is mentioned that the patient has become more confused. Yesterday she had gait instability. The symptoms were similar to those of a year ago for than niece and therefore she was concern for UTI and brought the patient to the ED for evaluation Discharge Providers Provider Date of admission: 04/16/20 11:24 Discharge Date: 04/20/20 Consults: 04/17/20 05:38 Consult to Occupational Therapy Evaluate & Treat Comment: Physician Instructions: Evaluate and treat Consult to Physical Therapy Evaluate & Treat Comment: Physician Instructions: Evaluate and Treat Discharge provider: Brenda Boykin MD Summary Hospital Course Discharge Diagnosis: 1. Sepsis secondary to E coli bacteremia 2. E coli urinary tract infection 3. Dementia 4. Type 2 diabetes 5. Hypertension 6. Hyperlipidemia 7. Hyponatremia 8. Thrombocytopenia Hospital Course: Patient is a 70-year-old female who was admitted to the hospital for acute confusion, and urinary tract infection. Patient's blood cultures were positive for E coli. She was treated with IV antibiotics and ultimately switched to oral antibiotics. The patient was also markedly hyponatremic. That improved and her sodium went from 114-130. The patient primary language is [place] ease, however she was able to sit up and eat. She is somewhat weak however this is felt to be around her baseline. The patient made slow but steady progress and was deemed appropriate for discharge home. Patient will be discharged home with home health PT OT and nursing. Status at Discharge Cognitive/behavioral status at discharge: at baseline, confused Functional status at discharge: uses cane/walker Overall status at discharge: patient is back to baseline Time Spent with Patient Time spent: Less than 30 minutes Exam Vital Signs (past 8 hours): - 04/20/20 05:42 04/20/20 05:56 04/20/20 06:33 Temperature 99.6 F 99.1 F Pulse Rate 86 Respiratory Rate 18 Blood Pressure 141/74 H Pulse Oximetry 98 98 04/20/20 09:00 Temperature 99.2 F Pulse Rate 87 Respiratory Rate 16 Blood Pressure 144/47 H Pulse Oximetry 98 Oxygen Delivery Method Room Air Oxygen Flow Rate 0 Narrative Exam Narrative: Pleasant elderly female sitting up in bed Lungs clear to auscultation Cardiac exam: Regular rate and rhythm normal S1-S2 with a 2/6 systolic ejection murmur Abdomen: Soft nontender nondistended Extremities: No edema, upper extremities with ecchymoses Objective Labs Result Diagrams: 04/20/20 05:55 04/20/20 05:55 Labs: Laboratory Results - last 24 hr 04/20/20 04/20/20 05:55 05:55 WBC 10.4 RBC 3.27 L Hgb 10.2 L Hct 30.2 L MCV 92.4 MCH 31.1 MCHC 33.7 RDW 15.1 H Plt Count 95 L Neut % (Auto) Not Reportable Lymph % (Auto) Not Reportable [place] % (Auto) Not Reportable Eos % (Auto) Not Reportable Baso % (Auto) Not Reportable Lymph # (Auto) Not Reportable [place] # (Auto) Not Reportable Baso # (Auto) Not Reportable Total Counted 100 Seg Neutrophils % 68.0 Band Neutrophils % 10.0 H Lymphocytes % (Manual) 6.0 L Monocytes % (Manual) 15.0 H Metamyelocytes % 1.0 H Neutrophils # (Manual) 8112 H RBC Morphology Normal morphology Sodium 129 L Potassium 4.1 Chloride 98 Carbon Dioxide 28 BUN 24 H Creatinine 0.91 Estimated GFR > 60.0 BUN/Creatinine Ratio 26.4 H Glucose 201 H Calcium 8.3 L Magnesium 1.5 L PFSH Medical History (Updated 04/16/20 @ 11:21 by Ana Anne DO) Dementia Diabetes Hyponatremia Surgical History H/O enucleation of left eyeball Family History Father Diabetes mellitus Smoker Mother Diabetes mellitus Brother Diabetes mellitus Sister Heart attack Daughter Diabetes mellitus Social History household members: family Smoking Status: Never smoker alcohol intake: never Discharge Assessment & Plan Assessment and Plan Assessment: 1. Severe sepsis secondary to E coli bacteremia 2. E coli urinary tract infection 3. Acute metabolic encephalopathy, present on admission 4. Hyponatremia 5. Type 2 diabetes 6. Hypertension 7. Hyperlipidemia 8. Thrombocytopenia 9. Acute kidney injury, present on admission, now resolved Plan of Treatment: Patient will discharge home on oral antibiotics Discharge Plan Discharge Plan Patient Disposition: Home Discharge orders & Medications Prescriptions: New amoxicillin-pot clavulanate [Augmentin] 875-125 mg Tablet 1 tab PO BID Qty: 7 RF: 0 Continued aspirin [Adult Low Dose Aspirin] 81 mg Tablet,Delayed Release (Dr/Ec) 81 mg PO QAM RF: 0 metformin 500 mg Tablet 500 mg BID RF: 0 Lantus U-100 Insulin 100 unit/mL Solution 6 unit SUBCUT BID RF: 0 multivitamin Tablet 1 tab PO QAM RF: 0 simvastatin 20 mg Tablet 20 mg PO BEDTIME RF: 0 lisinopril 10 mg Tablet 10 mg PO QAM RF: 0 Diet/Activity/Treatments Diet: Diet as Tolerated Skin/Wound/Dressing Care Report to your healthcare provider any signs of infection, such as:: chills, fever
--- NOTE | 2020-04-20 14:19 | CM.DPC ---
Addendum entered by Courtney Garcia LPN 04/21/20 14:22: Am sending all now to [facility] after updating Marian by phone. Last PT note is also sent. Addendum entered by Courtney Garcia LPN 04/21/20 13:39: Post d/c followup: called Khushboo this afternoon as planned to check in. Khushboo reports that she did not receive a call from [facility]. Explained challenges of the Medicaid HH process and offered [facility]. Khushboo said she though this would be very helpful. My auntie is still very wobbly. Will fax all to [facility] and call [facility] re same. Will fax these notes as well. Addendum entered by Courtney Garcia LPN 04/20/20 16:12: Just received update from [facility]. She reports they are currently over Medicaid capacity and cannot after all accept the referral. She agrees to call and explain this to Khushboo. Put in a quick call to [facility] and explained. She said that their acceptance was on a case to case basis but she would advocate with her traffic signal supervisor maintenance. Called back to say they could accept for HH PT with ability to open pt to service next week. Due to lateness of hour will followup with Khushboo tomorrow and provide [facility] with needed referral documentation. Original Note: DCP: continued: Case received and discussed in Team Rounds. Dr. Boykin stated that she had spoken with pt's niece Khushboo Guidry: cell: [phone] (note the cell # on face sheet is incorrect) and that Khushboo would be picking her mother up later this afternoon after she gets her daughter from school. HH is the plan and orders now obtained for HH RN/PT/OT/LEGGER PRESS OPERATOR. Face/Face is completed by Dr. Boykin. Have spoken now with Khushboo. She confirms that she is a TETRYL BOILING TUB OPERATOR. Pt had Khushboo's mother all live together. Pt has used [facility] in past and Khushboo requests same again. Have spoken now with Deborah/[facility]. PROCESS VALIDATION ENGINEER is faxing clinical info including d/c summary. Will fax F/F and orders when completed. P: home this afternoon with family and HH services.
[2020-04-20] MEDS: ACETAMINOPHEN 325 MG TABLET 650 MG PO (16:20)
--- NOTE | 2020-04-20 16:23 | OT.IP.TRT ---
Current Diagnoses Sepsis, unspecified organism (04/16/20) Occupational Therapy Treatment Note M2 OT-IP Current Condition Start: 04/17/20 12:27 Freq: Status: Active Protocol: Document 04/17/20 10:25 [facility] (Rec: 04/17/20 12:52 [facility] [id number]) Occupational Therapy Current Condition Current Condition Evaluation Date 04/17/20 Treatment Diagnosis Hypoatremia, UTI Diagnosis Onset Date 04/16/20 M3 OT- IP Subjective and Pain Start: 04/17/20 12:27 Freq: Status: Active Protocol: Document 04/20/20 16:25 [facility] (Rec: 04/20/20 16:40 [facility] [id number]) OT- Subjective Occupational Therapy Visit Type Type Treatment Note Visit Start Time 14:15 Visit Stop Time 14:23 Total Visit Minutes 8 Occupational Therapy Visit Comments Patient Comments Pt's niece in the room to pick pt up to go home. OT Pain Assessment Pain When Pain Assessed At Rest Pain Present Pain Present Denied Pain M5 OT- IP IADL's Start: 04/17/20 12:27 Freq: Status: Active Protocol: Document 04/17/20 10:25 [facility] (Rec: 04/17/20 12:52 [facility] [id number]) OT-Instrumental Activities of Daily Living Home Safety Awareness Awareness of Need for Assistance at Home Decreased Awareness Ability to Problem Solve Emergency Unable to Problem Solve Situations Medication Management Medication Management Caregiver Administers Money Management Money Management Caregiver Provides Assistance Meal Preparation Meal Preparation Caregiver Provides Assist Pattern Chain Maker Supervisor Pattern Chain Maker Supervisor Caregiver Provides Assist Driving Driving Caregiver Provides Assist M6 OT- IP Functional Cognition Start: 04/17/20 12:27 Freq: Status: Active Protocol: Document 04/19/20 15:40 [facility] (Rec: 04/19/20 15:50 [facility] [id number]) Cognitive Factors Limiting Selfcare Function Cognitive Ability Level of Alertness Alert,Confusional State Patient Orientation Name Cognitive Comments Cognitive Assessment Comments [place]er is pt's primary language family not present to assist with translation, therefore having to use visual and tactile cues for pt to follow. M7 OT- IP Mobility and Balance Start: 04/17/20 12:27 Freq: Status: Active Protocol: Document 04/20/20 16:25 [facility] (Rec: 04/20/20 16:40 [facility] [id number]) OT-Transfer Assessment Sit to and From Stand Sit to and from Stand Contact Guard Assistance Transfers Transfer Ability Minimal Assistance Technique Transfer Destination Bed,Wheelchair Transfer Technique Stand Step Pivot Devices Transfer Assistive Devices Gait Belt,Small Based Quad Cane Comments Mobility Comments Pt CGA to stand from high bed and MIN/MODA stand pivot to the wc. Pt still lean backwards at times and needing assist with weight shifting. Pt's niece aware that pt is weaker and needing 1:1 assist when moving and for other needs due to decreased balance and dementia. OT- Balance Assessment Sitting Balance and Reactions Static Sitting Balance Ability Good Dynamic Sitting Balance Ability Fair Standing Balance and Reactions Static Standing Balance Ability Poor M8 OT- IP Objective Assessments Start: 04/17/20 12:27 Freq: Status: Active Protocol: Document 04/17/20 10:25 [facility] (Rec: 04/17/20 12:52 [facility] [id number]) OT Gross Range of Motion Upper Extremity Range of Motion ROM Impairments Not able to fully assess due to language barrier. M9 OT- IP Assessment and Plan Start: 04/17/20 12:27 Freq: Status: Active Protocol: Document 04/20/20 16:25 [facility] (Rec: 04/20/20 16:40 [facility] [id number]) OT Summary Assessment and Plan Potential Rehabilitation Potential Good Analytic Complexity at Evaluation Low Summary OT Impairments Balance,Functional Cognition, Functional Mobility,Self- Feeding,Grooming,Dressing, Toileting,Bathing,Toilet Transfers,Shower Transfers, Activity Tolerance Progress Towards Goals Progressing Toward Goals Assessment Summary Pt a little more stable and alert today. Able to touch base with pt's niece regarding information for asking home health to try floor transfer as prior pt sleep on the floor. Pt's niece states to have pt sleep on a bed for now and will train other family members how to assist pt for all needs. Frequency of Treatment Frequency Of Treatment Once a Day Treatment Plan OT Treatment Plan ADL Training,Functional Mobility,Patient/Family Education,Discharge Planning Other Treatment Recommendations and Next caregiver training Treatment Focus Discharge Recommendations OT Discharge Recommendations Home with 24/ Assist Available,Home Health Transportation Needs at Discharge Private Vehicle
--- NOTE | 2020-04-20 17:36 | PC.NURSE ---
Discharge Note Patient febrile at time of discharge, updated and ok to give Tylenol and go home if patient able to take PO antibiotics. All other VSS stable. Patient's niece updated and ok with plane. Discharge packet/instructions reviewed with family no questions or concerns. Antibiotics script given to niece and reminded to fill on way home and for patient to take full course until all pills are gone. All belongings packed and given with patient along with discharge instructions. Tele/PIV removed by day shift nurse. Patient taken down via wheelchair to POV.
== END 2020-04-20 16:25 | disposition home health service (06) | DRG 871 ==
LOC: ED 11:21 → AC 11:25
PROVIDERS: Internal Medicine; Admitting Provider Internal Medicine; Emergency Provider Emergency Medicine; Referring Provider Emergency Medicine; Visit Provider Internal Medicine
DX: A41.51 Sepsis due to Escherichia coli [E. coli] (principal); G93.41 Metabolic encephalopathy; N17.9 Acute kidney failure, unspecified; E87.1 Hypo-osmolality and hyponatremia; N30.00 Acute cystitis without hematuria; R65.20 Severe sepsis without septic shock; D69.59 Other secondary thrombocytopenia; I95.9 Hypotension, unspecified; F03.90 Unspecified dementia, unspecified severity, without behavioral disturbance, psychotic disturbance, mood disturbance, and anxiety; E87.6 Hypokalemia; E83.42 Hypomagnesemia; E11.9 Type 2 diabetes mellitus without complications; I10 Essential (primary) hypertension; R26.89 Other abnormalities of gait and mobility; Z79.4 Long term (current) use of insulin; Z20.822 Contact with and (suspected) exposure to COVID-19
CPT/HCPCS: 36415; 71045; 80048; 80053; 81001; 82533; 82550; 82962; 83605; 83690; 83735; 84145; 84443; 84484; 85007; 85025; 85610; 85730; 87040; 87077; 87086; 87150; 87186; 87205; 87635; 93005; 96372; 97116; 97161; 97165; 97530; 97535; 99283; 99284; C9803; J0696; J1644; J2060; J2185; J3475; J3480

== ENCOUNTER 2020-08-04 08:34 | Emergency (ER) | payer MEDICAID, SELFPAY ==
[2020-04-16 13:23] VITALS: BMI 20.5
[2020-08-04] VITALS (32 sets, daily range): BP systolic 110–183; BP diastolic 53–99; PULSE 64–181; RESP 13–47; TEMP 36.9–38.2; O2SAT 85–100
--- NOTE | 2020-08-04 09:22 | DI.RAD.S_ITS ---
PROCEDURE: XR CHEST 1V INDICATIONS: suspected sepsis TECHNIQUE: One view of the chest was acquired. COMPARISON: [facility], CR, XR CHEST 1V, 04/16/2020, 10:11. FINDINGS: Surgical changes and devices: None. Lungs and pleura: Lungs are clear. No pleural effusions or pneumothorax. Mediastinum: Mediastinal contours appear normal. Heart size is normal. Bones and chest wall: No suspicious bony lesions. Overlying soft tissues appear unremarkable. IMPRESSION: No acute cardiopulmonary pathology. Dictated by: Jared Cazares M.D. on 08/04/2020 at 9:56 Approved by: Jared Cazares M.D. on 08/04/2020 at 10:00
[2020-08-04 09:27] LABS: Add Manual Diff / Slide Review NO; Basophils Absolute Auto 0 /uL (0-100); Basophils Percent Auto 0.2 % (0-2); Eosinophils Absolute Auto 0 /uL (0-450); Hematocrit 30.8 % (36-46); Hemoglobin 10.3 g/dL (12.0-16.0); Lymphocytes Absolute Auto 500 /uL (1100-4500); Lymphocytes Percent Auto 3.4 % (25-40); Mean Corpuscular HGB Conc 33.4 % (30-36); Mean Corpuscular Hemoglobin 30.8 PG (26-34); Mean Corpuscular Volume 92.3 fL (80-100); Monocytes Absolute Auto 1400 /uL (0-900); Monocytes Percent Auto 10.6 % (3-14); Neutrophils Absolute Auto 11500 /uL (1500-7000); Neutrophils Percent Auto 85.8 % (50-75); Platelet Count 186 X10^3/uL (150-400); Red Blood Cell Count 3.34 X10^6/uL (4.0-5.2); Red Cell Distribution Width 14.2 % (11.6-14.8); White Blood Cell Count 13.4 X10^3/uL (4.5-11.0)
[2020-08-04 09:34] LABS: Albumin 3.8 g/dL (3.5-5.0); Albumin Globulin Ratio 1.1 (1.0-2.8); Alkaline Phosphatase 57 U/L (38-126); Aspartate Aminotransferase 56 IU/L (14-36); BUN Creatinine Ratio 19.3 (6-22); Bilirubin Total 0.3 mg/dL (0.2-1.3); Blood Urea Nitrogen 21 mg/dL (7-17); Calcium 9.3 mg/dL (8.4-10.2); Carbon Dioxide 22 mmol/L (22-32); Chloride 89 mmol/L (98-107); Estimated Glomerular Filt Rate 49.3 mL/min (>60); Globulin 3.5 g/dL (1.7-4.1); Glucose 457 mg/dL (80-110); HEMOLYSIS < 15 (0-50); Lactate (Lactic Acid) 3.8 mmol/L (0.7-2.1); Lipase 106 U/L (23-300); Potassium 4.1 mmol/L (3.4-5.1); Sodium 123 mmol/L (137-145); Total Protein 7.3 g/dL (6.3-8.2)
[2020-08-04 09:40] LABS: Alanine Aminotransferase 34 IU/L (<35)
[2020-08-04 09:50] LABS: Procalcitonin 2.63 ng/mL (<0.5)
--- NOTE | 2020-08-04 10:15 | ED.AMS ---
HPI - Altered Mental Status General Chief Complaint: Urogenital-Female Stated Complaint: weak/incontinence Time Seen by Provider: 08/04/20 10:02 Source: patient and family Mode of arrival: Wheelchair Limitations: language barrier History of Present Illness HPI narrative: This is a 70-year-old female who is brought by her niece whom she lives with. Patient's niece states that she has been confused. She has some baseline confusion but has been significantly worsened. She states patient has had hyponatremia as well as UTIs in the past and he suspects this or a combination thereof. She has been hospitalized 3 times in the past for this. Most recently in June here at the local hospital. Patient was started on Bactrim around the 17 of July for recurrent UTI. And her family states that she has become more confused today. They note that she seems weak and has had difficulty walking to the bathroom. She has been using all of her arms legs but her gait is unsteady. She has not been complaining of any pain. She has not had any nausea or vomiting. She has not had any other obvious GI or urinary symptoms. Patient has had not had any localized weakness. She does take insulin, antihypertensive and dyslipidemia medications as well as Lantus and takes a daily aspirin. Related Data Home Medications Medication Instructions Recorded Confirmed Lantus U-100 Insulin 6 unit SUBCUT BID 04/17/19 04/16/20 aspirin [Adult Low Dose Aspirin] 81 mg PO QAM 04/17/19 04/16/20 metformin 500 mg BID 04/17/19 04/16/20 lisinopril 10 mg PO QAM 04/16/20 04/16/20 multivitamin 1 tab PO QAM 04/16/20 04/16/20 simvastatin 20 mg PO BEDTIME 04/16/20 04/16/20 Previous Rx's Medication Instructions Recorded amoxicillin-pot clavulanate 1 tab PO BID #7 tab 04/20/20 [Augmentin] Allergies Allergy/AdvReac Type Severity Reaction Status Date / Time No Known Drug Allergies Allergy Verified 08/04/20 09:19 Review of Systems Review of Systems ROS Unobtainable: All systems reviewed & are unremarkable except as noted in HPI and below Patient History Medical History Dementia Diabetes Hyponatremia Surgical History H/O enucleation of left eyeball Family History Father Diabetes mellitus Smoker Mother Diabetes mellitus Brother Diabetes mellitus Sister Heart attack Daughter Diabetes mellitus Social History household members: family Smoking Status: Never smoker alcohol intake: never Smoking Status: Never smoker Substance Use Type: does not use Exam Narrative Exam Narrative: GEN: Thin female, confused, patient appears to be in mild distress. HEENT: Atraumatic, pupils are equal round reactive to light, extraocular movements are intact, nares are clear, throat is clear without any exudates, erythema, tonsillar enlargement or uvular deviation, no facial droop. HEART: Regular rate and rhythm without murmur, clicks, rubs. Pulses are equal in upper and lower extremities LUNGS:Lungs clear to auscultation, no wheezes, rales, crackles, chest moves symmetrically, no tachypnea accessory muscle use. ABD:bowel sounds normal, soft, non-tender, no guarding, rebound, rigidity, no masses noted, no hepatosplenomegaly :No CVA tenderness MSCL: Non-tender, full range of motion NEURO:CN 2-12 intact, sensation normal, reflexes 2/4 upper and lower extremities SKIN: No rash, erythema or skin changes noted. Initial Vital Signs Initial Vital Signs: Vital Signs Temperature 99.5 F 08/04/20 09:10 Pulse Rate 86 08/04/20 09:10 Respiratory Rate 14 08/04/20 09:10 Blood Pressure 131/62 08/04/20 09:10 Pulse Oximetry 98 08/04/20 09:10 Scores GCS [place] coma scale eye opening: Spontaneous Joann coma scale verbal response: Confused Joann coma scale motor response: Obey commands Joann coma scale total score: 14 Course Orders Ordered: ED Orders 08/04/20 10:30 CT head/brain wo con Stat 08/04/20 10:34 Blood Culture Stat 08/04/20 11:55 Urinalysis and Microscopic Stat Urine Culture Stat Sodium Chloride (Normal Saline 0.9%) 1,000 mls @ 150 mls/hr IV CONT ISAI Last Admin: 08/04/20 16:24 Dose: 150 mls/hr Documented by: BLAINE Discontinued Medications Acetaminophen (Acetaminophen 325 Mg Tablet) 975 mg PO NOW ONE Stop: 08/04/20 14:52 Last Admin: 08/04/20 14:58 Dose: 975 mg Documented by: BLAINE Lactated Ringer's (Lactated Ringers) 1,197.48 mls @ 399.16 mls/hr 30 ml/kg infuse over 3 hr (1197.48 ml) IV NOW ONE Stop: 08/04/20 13:18 Last Infusion: 08/04/20 14:52 Dose: 0 mls/hr Documented by: Admin: 08/04/20 10:39 Dose: 399.16 mls/hr Documented by: BLAINE Piperacillin Sod/Tazobactam (Sod 4.5 gm/ Sodium Chloride) 100 mls @ 200 mls/hr IV NOW ONE Stop: 08/04/20 10:30 Last Infusion: 08/04/20 12:00 Dose: 0 mls/hr Documented by: Admin: 08/04/20 10:58 Dose: 200 mls/hr Documented by: KITTY Consultations Consultation #1: Dr. Mckeon, accepts for transfer to [facility] secondary to lack of bed availability Time: 14:13 Vital Signs Vital signs: Vital Signs - 8 hr 08/04/20 11:00 08/04/20 11:30 08/04/20 11:57 Temperature Pulse Rate 66 66 64 Respiratory Rate 14 14 14 Blood Pressure 112/56 L 114/54 L Pulse Oximetry 99 100 100 08/04/20 12:00 08/04/20 12:22 08/04/20 12:30 Temperature Pulse Rate 71 71 67 Respiratory Rate 21 14 13 Blood Pressure 122/60 114/55 L Pulse Oximetry 100 100 100 08/04/20 13:00 08/04/20 13:01 08/04/20 13:30 Temperature Pulse Rate 67 69 73 Respiratory Rate 13 13 14 Blood Pressure 110/57 L 137/62 Pulse Oximetry 92 100 100 08/04/20 14:00 08/04/20 14:21 08/04/20 14:30 Temperature Pulse Rate 91 H 126 H 65 Respiratory Rate 18 27 H 27 H Blood Pressure 183/77 H Pulse Oximetry 100 98 85 L 08/04/20 14:32 08/04/20 14:55 08/04/20 14:58 Temperature 98.4 F 100.7 F H 100.7 F H Pulse Rate Respiratory Rate Blood Pressure Pulse Oximetry 08/04/20 15:00 08/04/20 15:30 08/04/20 15:41 Temperature Pulse Rate 132 H 181 H 107 H Respiratory Rate 47 H 33 H 30 H Blood Pressure 121/99 H Pulse Oximetry 08/04/20 15:43 08/04/20 16:00 08/04/20 16:30 Temperature Pulse Rate 103 H 105 H 95 H Respiratory Rate 25 H 35 H Blood Pressure 121/99 H Pulse Oximetry 08/04/20 17:00 08/04/20 17:30 08/04/20 17:57 Temperature 98.7 F 98.7 F Pulse Rate 88 91 H Respiratory Rate 28 H 37 H Blood Pressure Pulse Oximetry 08/04/20 18:00 Temperature Pulse Rate 79 Respiratory Rate 15 Blood Pressure Pulse Oximetry MDM - Altered Mental Status Lab Data Attestation: I reviewed the patient's lab results. Result diagrams: 08/04/20 09:15 08/04/20 09:15 Labs: Lab Results 08/04/20 08/04/20 08/04/20 Range/Units 08:35 09:15 09:15 WBC 13.4 H (4.5-11.0) X10^3/uL RBC 3.34 L (4.0-5.2) X10^6/uL Hgb 10.3 L (12.0-16.0) g/dL Hct 30.8 L (36-46) % MCV 92.3 (80-100) fL MCH 30.8 (26-34) PG MCHC 33.4 (30-36) % RDW 14.2 (11.6-14.8) % Plt Count 186 (150-400) X10^3/uL Neut % (Auto) 85.8 H (50-75) % Lymph % (Auto) 3.4 L (25-40) % [place] % (Auto) 10.6 (3-14) % Eos % (Auto) 0.0 L (2-4) % Baso % (Auto) 0.2 (0-2) % Neut # (Auto) 86068 H (3569-4069) /uL Lymph # (Auto) 500 L (8596-9181) /uL [place] # (Auto) 1400 H (0-900) /uL Eos # (Auto) 0 (0-450) /uL Baso # (Auto) 0 (0-100) /uL Sodium 123 L (137-145) mmol/L Potassium 4.1 (3.4-5.1) mmol/L Chloride 89 L (98-107) mmol/L Carbon Dioxide 22 (22-32) mmol/L BUN 21 H (7-17) mg/dL Creatinine 1.09 H (0.52-1.04) mg/dL Estimated GFR 49.3 L (>60) mL/min BUN/Creatinine Ratio 19.3 (6-22) Glucose 457 H (80-110) mg/dL Lactate (0.7-2.1) mmol/L Calcium 9.3 (8.4-10.2) mg/dL Total Bilirubin 0.3 (0.2-1.3) mg/dL AST 56 H (14-36) IU/L ALT 34 (<35) IU/L Alkaline Phosphatase 57 (38-126) U/L Total Protein 7.3 (6.3-8.2) g/dL Albumin 3.8 (3.5-5.0) g/dL Globulin 3.5 (1.7-4.1) g/dL Albumin/Globulin Ratio 1.1 (1.0-2.8) Lipase 106 (23-300) U/L Procalcitonin 2.63 H (<0.5) ng/mL Urine Color Urine Appearance Urine pH (4.5-8.0) Ur Specific [place] (1.000-1.035) Urine Protein (Negative) Urine Glucose (UA) (Negative) g/dL Urine Ketones (NEGATIVE) Urine Occult Blood (Negative) Urine Nitrate (Negative) Urine Bilirubin (NEGATIVE) Urine Urobilinogen (0.2) E.U./dL Ur Leukocyte Esterase (NEGATIVE) Urine RBC (0-5/HPF) Urine WBC (0-5/HPF) Urine Bacteria (None) Ur Culture Indicated? SARS-CoV-2 (PCR) Negative (Negative) 08/04/20 08/04/20 08/04/20 Range/Units 09:15 11:55 12:25 WBC (4.5-11.0) X10^3/uL RBC (4.0-5.2) X10^6/uL Hgb (12.0-16.0) g/dL Hct (36-46) % MCV (80-100) fL MCH (26-34) PG MCHC (30-36) % RDW (11.6-14.8) % Plt Count (150-400) X10^3/uL Neut % (Auto) (50-75) % Lymph % (Auto) (25-40) % [place] % (Auto) (3-14) % Eos % (Auto) (2-4) % Baso % (Auto) (0-2) % Neut # (Auto) (7741-8571) /uL Lymph # (Auto) (8009-5796) /uL [place] # (Auto) (0-900) /uL Eos # (Auto) (0-450) /uL Baso # (Auto) (0-100) /uL Sodium (137-145) mmol/L Potassium (3.4-5.1) mmol/L Chloride (98-107) mmol/L Carbon Dioxide (22-32) mmol/L BUN (7-17) mg/dL Creatinine (0.52-1.04) mg/dL Estimated GFR (>60) mL/min BUN/Creatinine Ratio (6-22) Glucose (80-110) mg/dL Lactate 3.8 H 2.6 H (0.7-2.1) mmol/L Calcium (8.4-10.2) mg/dL Total Bilirubin (0.2-1.3) mg/dL AST (14-36) IU/L ALT (<35) IU/L Alkaline Phosphatase (38-126) U/L Total Protein (6.3-8.2) g/dL Albumin (3.5-5.0) g/dL Globulin (1.7-4.1) g/dL Albumin/Globulin Ratio (1.0-2.8) Lipase (23-300) U/L Procalcitonin (<0.5) ng/mL Urine Color Yellow Urine Appearance Sl cloudy Urine pH 5.0 (4.5-8.0) Ur Specific [place] 1.010 (1.000-1.035) Urine Protein 1+ H (Negative) Urine Glucose (UA) 2+ H (Negative) g/dL Urine Ketones Negative (NEGATIVE) Urine Occult Blood 3+ H (Negative) Urine Nitrate Negative (Negative) Urine Bilirubin Negative (NEGATIVE) Urine Urobilinogen 0.2 (0.2) E.U./dL Ur Leukocyte Esterase 3+ H (NEGATIVE) Urine RBC 5-10/hpf H (0-5/HPF) Urine WBC >100/hpf H (0-5/HPF) Urine Bacteria Many (>30) H (None) Ur Culture Indicated? Specimen cultured SARS-CoV-2 (PCR) (Negative) Imaging Data CT scan - head: Radiologist's Impression: Felicitas Smalls 70 F [address] [id number] Scan ReportSigned Patient: Felicitas SmallsMR#: [id number]: [id number]:[id number]/Sex: 70 / FDate of Service: 08/04/20Loc: EDAccession Number: [id number] Procedure: CT head/brain wo con Ordering Provider: Carly Torrez D.O. PROCEDURE: CT HEAD/BRAIN WO CON INDICATIONS: confusion TECHNIQUE: Noncontrast 4.5 mm thick angled axial sections acquired from the foramen magnum to the vertex, with coronal and sagittal reformats. For radiation dose reduction, the following was used: automated exposure control, adjustment of mA and/or kV according to patient size. COMPARISON: [facility], CT, CT HEAD/BRAIN WO CON, 04/16/2019, 20:41. FINDINGS: Image quality: Excellent. CSF spaces: Basal cisterns are patent. No extra-axial fluid collections. The ventricles are symmetric in size and shape. Brain: No intracranial bleeds or masses. There is cerebral volume loss for age, with resultant ventricular and sulcal prominence. There are periventricular and deep white matter chronic small vessel ischemic changes. There is intracranial internal carotid artery atherosclerosis. Skull and face: Calvarium and visualized facial bones appear intact, without suspicious lesions. Sinuses: Visualized sinuses and mastoids are clear. IMPRESSION: 1. No acute intracranial process. 2. Moderate atrophy and chronic microvascular ischemic changes. Dictated by: Akanksha Shaffer M.D. on 08/04/2020 at 11:03 Approved by: Akanksha Shaffer M.D. on 08/04/2020 at 11:04 Chest x-ray: Radiologist's Impression: [place] [id number] [place] [id number] ReportSigned Patient: Felicitas SmallsMR#: [id number]: 8Acct:[id number]/Sex: 70 / FDate of Service: 08/04/20Loc: EDAccession Number: [id number] Procedure: XR chest 1V Ordering Provider: Carly Torrez D.O. PROCEDURE: XR CHEST 1V INDICATIONS: suspected sepsis TECHNIQUE: One view of the chest was acquired. COMPARISON: [facility], , XR CHEST 1V, 04/16/2020, 10:11. FINDINGS: Surgical changes and devices: None. Lungs and pleura: Lungs are clear. No pleural effusions or pneumothorax. Mediastinum: Mediastinal contours appear normal. Heart size is normal. Bones and chest wall: No suspicious bony lesions. Overlying soft tissues appear unremarkable. IMPRESSION: No acute cardiopulmonary pathology. Dictated by: Jared Cazares M.D. on 08/04/2020 at 9:56 Approved by: Jared Cazares M.D. on 08/04/2020 at 10:00 [facility] Narrative Medical decision making narrative: 70-year-old female comes to the emergency department with complaint of altered mental status and confusion. Her family brings her with similar symptoms with prior hyponatremia in [place]. Patient's sodium is low today. She does appear to also have a UTI, her procalcitonin is elevated and she was started on IV antibiotics. She has not been hypotensive or tachycardic here but did have an elevated white count at [address] consistent with infection. Head CT and chest x-ray do not show any other signs of infection or on causes of altered mental status. Patient did receive a 30 cc/kilos bolus and does appear dry on clinical exam. Lactate was improving. We did not have any bed availability here and Dr. Mckeon at [facility] kindly accepted for transfer. Discharge Plan Departure Patient Disposition: [facility] Clinical Impression: Hyponatremia, Acute UTI Prescriptions: No Action aspirin [Adult Low Dose Aspirin] 81 mg Tablet,Delayed Release (Dr/Ec) 81 mg PO QAM RF: 0 metformin 500 mg Tablet 500 mg BID RF: 0 Lantus U-100 Insulin 100 unit/mL Solution 6 unit SUBCUT BID RF: 0 multivitamin Tablet 1 tab PO QAM RF: 0 simvastatin 20 mg Tablet 20 mg PO BEDTIME RF: 0 lisinopril 10 mg Tablet 10 mg PO QAM RF: 0 amoxicillin-pot clavulanate [Augmentin] 875-125 mg Tablet 1 tab PO BID Qty: 7 RF: 0
--- NOTE | 2020-08-04 10:30 | DI.CT.S_ITS ---
PROCEDURE: CT HEAD/BRAIN WO CON INDICATIONS: confusion TECHNIQUE: Noncontrast 4.5 mm thick angled axial sections acquired from the foramen magnum to the vertex, with coronal and sagittal reformats. For radiation dose reduction, the following was used: automated exposure control, adjustment of mA and/or kV according to patient size. COMPARISON: [facility], CT, CT HEAD/BRAIN WO CON, 04/16/2019, 20:41. FINDINGS: Image quality: Excellent. CSF spaces: Basal cisterns are patent. No extra-axial fluid collections. The ventricles are symmetric in size and shape. Brain: No intracranial bleeds or masses. There is cerebral volume loss for age, with resultant ventricular and sulcal prominence. There are periventricular and deep white matter chronic small vessel ischemic changes. There is intracranial internal carotid artery atherosclerosis. Skull and face: Calvarium and visualized facial bones appear intact, without suspicious lesions. Sinuses: Visualized sinuses and mastoids are clear. IMPRESSION: 1. No acute intracranial process. 2. Moderate atrophy and chronic microvascular ischemic changes. Dictated by: Akanksha Shaffer M.D. on 08/04/2020 at 11:03 Approved by: Akanksha Shaffer M.D. on 08/04/2020 at 11:04
[2020-08-04] MEDS: LACTATED RINGERS 399.16 ML IV (10:39)
[2020-08-04] MEDS: PIPERACILLIN/TAZO 4.5 GM in SODIUM CHLORIDE 0.9% 100 ML 200 ML IV (10:58)
[2020-08-04 11:24] LABS: Reflexed Lactate in 2 Hours Y
[2020-08-04 11:55] LABS: COVID19 - ADMIT (NP swab/PCR) Negative (Negative)
[2020-08-04 12:07] LABS: Appearance Urine UA SL CLOUDY; Bilirubin Urine UA NEGATIVE (NEGATIVE); Color Urine UA YELLOW; Glucose Urine UA 2+ g/dL (Negative); Ketones Urine UA NEGATIVE (NEGATIVE); Leukocyte Esterase Urine UA 3+ (NEGATIVE); Nitrite Urine UA NEGATIVE (Negative); Occult Blood Urine UA 3+ (Negative); Protein Urine UA 1+ (Negative); Urobilinogen Urine UA 0.2 E.U./dL (0.2)
[2020-08-04 12:30] LABS: Bacteria Urine Many (>30); Culture Indicated Urine Specimen Cultured; RBC Urine 5-10/HPF (0-5/HPF); WBC Urine >100/HPF (0-5/HPF)
[2020-08-04 12:40] LABS: Lactate 2HR (Lactic Acid Rflx) 2.6 mmol/L (0.7-2.1)
[2020-08-04] MEDS: ACETAMINOPHEN 325 MG TABLET 975 MG PO (14:58)
--- NOTE | 2020-08-04 15:00 | PC.NURSE ---
patient was found standing at door, shaking, confused. The nurse and I were able to help patient onto a commode and get back into bed safely. bed low and locked, call light in reach
--- NOTE | 2020-08-04 15:53 | PC.NURSE ---
1450, patient standing in hallway naked having removed herself from monitors and taken out one of her two ivs. Jaycee placed on commode because we assumed she must need to urinate. She urinated a large amount and then was put back in bed. Continues to be confused. Is having rigors and is tachycardic despite being afebrile with oral temp. I took a rectal temp at this time and it showed fever of 100.7F. I asked Dr. Torrez for oral tylenol to manage fever.
[2020-08-04] MEDS: SODIUM CHLORIDE 0.9% 1,000 ML 150 ML IV (16:24)
--- NOTE | 2020-08-04 18:09 | PC.NURSE ---
Report called to Kya CAROLINA at [facility].
--- NOTE | 2020-08-04 19:40 | PC.NURSE ---
1820 Normal Saline at 150ml/hr continued in transport.
== END 2020-08-04 18:20 | disposition short-term general hospital (02) ==
PROVIDERS: Emergency Provider Emergency Medicine
DX: E87.1 Hypo-osmolality and hyponatremia (principal); N39.0 Urinary tract infection, site not specified; R26.81 Unsteadiness on feet; D72.829 Elevated white blood cell count, unspecified; Z20.822 Contact with and (suspected) exposure to COVID-19
CPT/HCPCS: 36415; 51701; 70450; 71045; 80053; 81001; 83605; 83690; 84145; 85025; 87040; 87077; 87086; 87186; 87635; 96361; 96365; 96366; 96367; 99285; C9803; J2543

== ENCOUNTER 2022-02-20 10:08 | Inpatient (IN) | payer MEDICAID, SELFPAY ==
[2020-04-16 13:23] VITALS: BMI 20.5
[2022-02-20] VITALS (26 sets, daily range): BP systolic 87–168; BP diastolic 54–89; PULSE 75–95; RESP 15–33; TEMP 36.7–38; O2SAT 88–98
[2022-02-20 12:05] LABS: Influenza A - CEPHEID Flu A POSITIVE (NEGATIVE); Influenza B - CEPHEID Flu B NEGATIVE (NEGATIVE); Respiratory Syncytial Virus Negative (Negative)
--- NOTE | 2022-02-20 12:20 | DI.RAD.S_ITS ---
PROCEDURE: XR PELVIS 1-2V INDICATIONS: weakness, fall 1 week ago TECHNIQUE: 1 view(s) of the pelvis acquired. COMPARISON: None. FINDINGS: Bones: No fractures or dislocations. No suspicious bony lesions. Soft tissues: Visualized bowel gas pattern is normal. No suspicious soft tissue calcifications. Arterial vascular calcifications. IMPRESSION: No fracture is seen. Consider CT bony pelvis if concern for occult fracture. Dictated by: Jorge Slaughter M.D. on 02/20/2022 at 13:30 Approved by: Jorge Slaughter M.D. on 02/20/2022 at 13:31
--- NOTE | 2022-02-20 12:20 | DI.CT.S_ITS ---
PROCEDURE: CT HEAD/BRAIN WO CON INDICATIONS: weakness, fall 1 week ago TECHNIQUE: Noncontrast 4.5 mm thick angled axial sections acquired from the foramen magnum to the vertex, with coronal and sagittal reformats. For radiation dose reduction, the following was used: automated exposure control, adjustment of mA and/or kV according to patient size. COMPARISON: [facility], CT, CT HEAD/BRAIN WO CON, 08/04/2020, 10:34. FINDINGS: Image quality: Excellent. CSF spaces: Basal cisterns are patent. No extra-axial fluid collections. Ventricles are normal in size and shape. Brain: No midline shift. No intracranial masses or hemorrhage. No area of hypodensity in a large vascular distribution to suggest acute infarction. Periventricular hypodensity consistent with chronic microvascular ischemic change. Age-related parenchymal loss. Skull and face: Calvarium and visualized facial bones are intact, without suspicious lesions. Atrophic left globe. Sinuses: Mild mucosal thickening in the maxillary, paranasal, sphenoid sinuses. Mastoids are clear. IMPRESSION: No acute intracranial abnormality. Chronic microvascular ischemic disease. Dictated by: Jorge Slaughter M.D. on 02/20/2022 at 13:04 Approved by: Jorge Slaughter M.D. on 02/20/2022 at 13:09
--- NOTE | 2022-02-20 12:20 | DI.RAD.S_ITS ---
PROCEDURE: XR CHEST 1V INDICATIONS: weakness, fall 1 week ago TECHNIQUE: One view of the chest was acquired. COMPARISON: [facility], CR, XR CHEST 1V, 08/04/2020, 9:31. FINDINGS: Surgical changes and devices: None. Lungs and pleura: Moderate airspace opacity within the left mid lung. No pleural effusions or pneumothorax. Mediastinum: Mediastinal contours appear normal. Heart size is normal. Bones and chest wall: No suspicious bony lesions. Overlying soft tissues appear unremarkable. IMPRESSION: Left lung pneumonia. Continued plain film surveillance is recommended to ensure resolution, and to exclude underlying or central malignancy. Dictated by: Zbigniew Singh M.D. on 02/20/2022 at 13:23 Approved by: Zbigniew Singh M.D. on 02/20/2022 at 13:23
--- NOTE | 2022-02-20 12:20 | DI.RAD.S_ITS ---
PROCEDURE: XR LUMBAR SPINE 2-3V INDICATIONS: weakness, fall 1 week ago TECHNIQUE: 2 views of the lumbar spine were acquired. COMPARISON: [facility], , SPINE LUMB 2 OR 3VW, 08/02/2014, 11:44. FINDINGS: Bones: 5 [id number] vertebrae are present. There is normal bony alignment. Minimal height loss at L3. No suspicious bony lesions. Soft tissues: Overlying bowel gas pattern is normal. No suspicious soft tissue calcifications. Cholecystectomy clips. IMPRESSION: Minimal height loss at L3. Dictated by: Jorge Slaughter M.D. on 02/20/2022 at 13:34 Approved by: Jorge Slaughter M.D. on 02/20/2022 at 13:36
--- NOTE | 2022-02-20 12:25 | ED_ITS ---
HPI - Fever <Joanie Lion, [facility] - Last Filed: 02/20/22 15:03> General Chief Complaint: Fever Stated Complaint: fever/congestion/cold/weak/ T-1 Time Seen by Provider: 02/20/22 12:08 Source: patient Mode of arrival: Wheelchair History of Present Illness HPI Narrative: This is a 72-year-old female with history of dementia, insulin-dependent diabetes, hyperlipidemia, frequent UTIs and requires care for ADLs by niece who brings her into the emergency today with concern for diarrhea 2 days ago fever this morning, runny nose with congestion, increased fatigue and she is concerned for another urinary tract infection. Her niece is not the DPOA. She endorses that patient's urine has had a foul odor for 2 days. She has still tolerating p.o., is having bowel movements, she states that she had a fall 1 week ago and was not evaluated at that time she has some left hip pain and started to feel better. Her niece states that they have not completed paperwork regarding if patient is a full code or not however she wishes to have full care in any circumstance today. She received Tylenol this morning around 07:00, I saw them at the bedside at 12:00 o'8 and her niece is primary historian as patient has significant dementia and is unable to respond in more than 1-2 word sentences to [place]. Significant family history of diabetes. Patient has had antibiotics recently, does not have a primary care provider but sees Dr. Johnson at [facility] in [place] for diabetes medications and care. Related Data Home Medications Medication Instructions Recorded Confirmed aspirin 81 mg tablet,delayed 81 mg PO QAM 04/17/19 04/16/20 release (Adult Low Dose Aspirin) insulin glargine 100 unit/mL 6 unit SUBCUT BID 04/17/19 04/16/20 subcutaneous solution (Lantus U-100 Insulin) metformin 500 mg tablet 500 mg BID 04/17/19 04/16/20 lisinopril 10 mg tablet 10 mg PO QAM 04/16/20 04/16/20 multivitamin 1 tab PO QAM 04/16/20 04/16/20 simvastatin 20 mg tablet 20 mg PO BEDTIME 04/16/20 04/16/20 Previous Rx's Medication Instructions Recorded amoxicillin 875 mg-potassium 1 tab PO BID #7 tabs 04/20/20 clavulanate 125 mg tablet (Augmentin) Allergies Allergy/AdvReac Type Severity Reaction Status Date / Time No Known Drug Allergies Allergy Verified 02/20/22 10:19 Review of Systems <FLORINDA Gambino - Last Filed: 02/20/22 15:03> Review of Systems ROS Unobtainable: All systems reviewed & are unremarkable except as noted in HPI and below Patient History <FLORINDA Gambino - Last Filed: 02/20/22 15:03> Medical History Dementia Diabetes Hyponatremia Surgical History H/O enucleation of left eyeball Family History Father Diabetes mellitus Smoker Mother Diabetes mellitus Brother Diabetes mellitus Sister Heart attack Daughter Diabetes mellitus Social History household members: family Smoking Status: Never smoker alcohol intake: never Smoking Status: Never smoker Substance Use Type: does not use Exam <FLORINDA Gambino - Last Filed: 02/20/22 15:03> Narrative Exam Narrative: Reviewed vitals signs and nursing notes. General: Resting quietly, arousable, history of dementia but tracking and interactive, able to say yes and no to questions HEENT: symmetrical facial expressions, ptosis of left eye baseline, dry mucous membranes, EOMI Cardiovascular: regular rate and rhythm, no peripheral edema, warm extremities Respiratory: Shallow respirations, diminished breath sounds throughout, without wheezing, stridor, or abnormal breath sounds. No retractions or tachypnea. GI: abdomen soft, nontender to palpation, nondistended, without masses, rebound tenderness or exquisite tenderness with exam. MSK: moves all extremities, neurovascularly intact, no weakness, normal tone Skin: brisk capillary refill, without pallor or erythema Psych: mental status is grossly normal, congruent mood, normal affect, pleasant and cooperative Initial Vital Signs Initial Vital Signs: Vital Signs Temperature 98.0 F 02/20/22 10:19 Pulse Rate 88 02/20/22 10:19 Respiratory Rate 15 02/20/22 10:19 Blood Pressure 131/60 02/20/22 10:19 Pulse Oximetry 94 02/20/22 10:19 Oxygen Delivery Method 02/20/22 10:19 <Kwan Barba DO - Last Filed: 02/20/22 15:04> Initial Vital Signs Initial Vital Signs: Vital Signs Temperature 98.0 F 02/20/22 10:19 Pulse Rate 88 02/20/22 10:19 Respiratory Rate 15 02/20/22 10:19 Blood Pressure 131/60 02/20/22 10:19 Pulse Oximetry 94 02/20/22 10:19 Oxygen Delivery Method 02/20/22 10:19 Course <FLORINDA Gambino - Last Filed: 02/20/22 15:03> Orders Ordered: ED Orders 02/20/22 10:22 Covid-19 + FLU A/B + RSV - PCR Stat 02/20/22 12:20 CT head/brain wo con Stat XR chest 1V Stat XR lumbar spine 2-3V Stat XR pelvis 1-2V Stat 02/20/22 12:40 A1C [Hemoglobin A1C% w Est Avg Glu] Urgent CBC Auto Diff [Complete Blood Count AUTO DIFF] Stat CMP [Comprehensive Metabolic Panel] Stat CRP [C-Reactive Protein Quant] Stat Ketones (Beta-Hydroxybutyrate) Stat Lactate (Lactic Acid) Stat Magnesium Stat Procalcitonin Urgent 02/20/22 12:50 UA Complete [Urinalysis and Microscopic] Stat Urine Culture Stat 02/20/22 13:53 Blood Culture Stat 02/21/22 05:00 CBC Auto Diff [Complete Blood Count AUTO DIFF] DAILY CMP [Comprehensive Metabolic Panel] DAILY Magnesium DAILY 02/22/22 05:00 CBC Auto Diff [Complete Blood Count AUTO DIFF] DAILY CMP [Comprehensive Metabolic Panel] DAILY Magnesium DAILY 02/23/22 05:00 CBC Auto Diff [Complete Blood Count AUTO DIFF] DAILY CMP [Comprehensive Metabolic Panel] DAILY Magnesium DAILY Acetaminophen (Acetaminophen 325 Mg Tablet) 650 mg PO Q6H PRN PRN Reason: Fever/Mild Pain (1-3) Aspirin (Aspirin Ec 81 Mg Tablet) 81 mg PO DAILY ISAI Azithromycin (Azithromycin 250 Mg Tablet) 500 mg PO DAILY ISAI Stop: 02/23/22 13:29 Last Admin: 02/20/22 14:01 Dose: 500 mg Documented By: ALEXIS Heparin Sodium (Porcine) (Heparin 5,000 Unit/Ml Vial) 5,000 unit SUBCUT BID [facility] Sodium Chloride (Normal Saline 0.9%) 1,000 mls @ 1,000 mls/hr IV BOLUS ONE Stop: 02/20/22 14:53 INSULIN DRIP PREMIX (Myxredlin Drip Premix) 100 unit in 100 mls @ 6 mls/hr IV TITRATE ISAI; Protocol Magnesium Sulfate (Magnesium Sulfate) 2 gm in 50 mls @ 25 mls/hr IV NOW ONE Stop: 02/20/22 15:59 Piperacillin Sod/Tazobactam (Sod 4.5 gm/ Sodium Chloride) 100 mls @ 200 mls/hr IV NOW ONE Stop: 02/20/22 15:00 Piperacillin Sod/Tazobactam (Sod 3.375 gm/ Sodium Chloride) 100 mls @ 25 mls/hr IV Q8H [facility] Insulin Human Lispro (Insulin Lispro 100 Unit/Ml 3ml Vial) 0 unit SUBCUT ACHS ISAI; Protocol Melatonin (Melatonin 3 Mg Tablet) 6 mg PO BEDTIME PRN PRN Reason: Insomnia Naloxone HCl (Naloxone 0.4 Mg/Ml Vial) 0.2 mg IV Q2MIN PRN PRN Reason: Opiate Reversal Oseltamivir Phosphate (Oseltamivir 75 Mg Capsule) 75 mg PO BID [facility] Stop: 02/25/22 20:59 Polyethylene Glycol (Polyethylene Glycol 3350 17 Gm Powd.Pack) 17 gm PO DAILY PRN PRN Reason: Constipation Sennosides (Sennosides 8.6 Mg Tablet) 8.6 mg PO BID PRN PRN Reason: Constipation Discontinued Medications Sodium Chloride (Normal Saline 0.9%) 1,000 mls @ 1,000 mls/hr IV BOLUS ONE Stop: 02/20/22 14:08 Last Infusion: 02/20/22 14:56 Dose: 0 mls/hr Documented By: Admin: 02/20/22 13:58 Dose: 1,000 mls/hr Documented By: ALEXIS Ceftriaxone Sodium 1,000 mg/ (Sodium Chloride) 100 mls @ 200 mls/hr IV NOW ONE Stop: 02/20/22 13:30 Last Infusion: 02/20/22 14:38 Dose: 0 mls/hr Documented By: Admin: 02/20/22 14:01 Dose: 200 mls/hr Documented By: ALEXIS Oseltamivir Phosphate (Oseltamivir 75 Mg Capsule) 75 mg PO NOW ONE Stop: 02/20/22 13:14 Last Admin: 02/20/22 13:58 Dose: 75 mg Documented By: ALEXIS Vital Signs Vital signs: Vital Signs - 8 hr 02/20/22 10:19 02/20/22 13:43 02/20/22 13:44 Temperature 98.0 F Pulse Rate 88 77 77 Respiratory Rate 15 Blood Pressure 131/60 Pulse Oximetry 94 92 92 Oxygen Delivery Method Room Air Room Air Oxygen Flow Rate 02/20/22 13:44 02/20/22 14:00 02/20/22 14:00 Temperature Pulse Rate 75 Respiratory Rate 16 Blood Pressure 128/61 143/60 H Pulse Oximetry 98 Oxygen Delivery Method Nasal Cannula Oxygen Flow Rate 2 <Kwan Barba, - Last Filed: 02/20/22 15:04> Orders Ordered: ED Orders 02/20/22 10:22 Covid-19 + FLU A/B + RSV - PCR Stat 02/20/22 12:20 CT head/brain wo con Stat XR chest 1V Stat XR lumbar spine 2-3V Stat XR pelvis 1-2V Stat 02/20/22 12:40 A1C [Hemoglobin A1C% w Est Avg Glu] Urgent CBC Auto Diff [Complete Blood Count AUTO DIFF] Stat CMP [Comprehensive Metabolic Panel] Stat CRP [C-Reactive Protein Quant] Stat Ketones (Beta-Hydroxybutyrate) Stat Lactate (Lactic Acid) Stat Magnesium Stat Procalcitonin Urgent 02/20/22 12:50 UA Complete [Urinalysis and Microscopic] Stat Urine Culture Stat 02/20/22 13:53 Blood Culture Stat 02/21/22 05:00 CBC Auto Diff [Complete Blood Count AUTO DIFF] DAILY CMP [Comprehensive Metabolic Panel] DAILY Magnesium DAILY 02/22/22 05:00 CBC Auto Diff [Complete Blood Count AUTO DIFF] DAILY CMP [Comprehensive Metabolic Panel] DAILY Magnesium DAILY 02/23/22 05:00 CBC Auto Diff [Complete Blood Count AUTO DIFF] DAILY CMP [Comprehensive Metabolic Panel] DAILY Magnesium DAILY Acetaminophen (Acetaminophen 325 Mg Tablet) 650 mg PO Q6H PRN PRN Reason: Fever/Mild Pain (1-3) Aspirin (Aspirin Ec 81 Mg Tablet) 81 mg PO DAILY ISAI Azithromycin (Azithromycin 250 Mg Tablet) 500 mg PO DAILY ISAI Stop: 02/23/22 13:29 Last Admin: 02/20/22 14:01 Dose: 500 mg Documented By: ALEXIS Heparin Sodium (Porcine) (Heparin 5,000 Unit/Ml Vial) 5,000 unit SUBCUT BID [facility] Sodium Chloride (Normal Saline 0.9%) 1,000 mls @ 1,000 mls/hr IV BOLUS ONE Stop: 02/20/22 14:53 INSULIN DRIP PREMIX (Myxredlin Drip Premix) 100 unit in 100 mls @ 6 mls/hr IV TITRATE ISAI; Protocol Magnesium Sulfate (Magnesium Sulfate) 2 gm in 50 mls @ 25 mls/hr IV NOW ONE Stop: 02/20/22 15:59 Piperacillin Sod/Tazobactam (Sod 4.5 gm/ Sodium Chloride) 100 mls @ 200 mls/hr IV NOW ONE Stop: 02/20/22 15:00 Piperacillin Sod/Tazobactam (Sod 3.375 gm/ Sodium Chloride) 100 mls @ 25 mls/hr IV Q8H [facility] Insulin Human Lispro (Insulin Lispro 100 Unit/Ml 3ml Vial) 0 unit SUBCUT ACHS S CH; Protocol Melatonin (Melatonin 3 Mg Tablet) 6 mg PO BEDTIME PRN PRN Reason: Insomnia Naloxone HCl (Naloxone 0.4 Mg/Ml Vial) 0.2 mg IV Q2MIN PRN PRN Reason: Opiate Reversal Oseltamivir Phosphate (Oseltamivir 75 Mg Capsule) 75 mg PO BID [facility] Stop: 02/25/22 20:59 Polyethylene Glycol (Polyethylene Glycol 3350 17 Gm Powd.Pack) 17 gm PO DAILY PRN PRN Reason: Constipation Sennosides (Sennosides 8.6 Mg Tablet) 8.6 mg PO BID PRN PRN Reason: Constipation Discontinued Medications Sodium Chloride (Normal Saline 0.9%) 1,000 mls @ 1,000 mls/hr IV BOLUS ONE Stop: 02/20/22 14:08 Last Infusion: 02/20/22 14:56 Dose: 0 mls/hr Documented By: Admin: 02/20/22 13:58 Dose: 1,000 mls/hr Documented By: ALEXIS Ceftriaxone Sodium 1,000 mg/ (Sodium Chloride) 100 mls @ 200 mls/hr IV NOW ONE Stop: 02/20/22 13:30 Last Infusion: 02/20/22 14:38 Dose: 0 mls/hr Documented By: Admin: 02/20/22 14:01 Dose: 200 mls/hr Documented By: ALEXIS Oseltamivir Phosphate (Oseltamivir 75 Mg Capsule) 75 mg PO NOW ONE Stop: 02/20/22 13:14 Last Admin: 02/20/22 13:58 Dose: 75 mg Documented By: ALEXIS Vital Signs Vital signs: Vital Signs - 8 hr 02/20/22 10:19 02/20/22 13:43 02/20/22 13:44 Temperature 98.0 F Pulse Rate 88 77 77 Respiratory Rate 15 Blood Pressure 131/60 Pulse Oximetry 94 92 92 Oxygen Delivery Method Room Air Room Air Oxygen Flow Rate 02/20/22 13:44 02/20/22 14:00 02/20/22 14:00 Temperature Pulse Rate 75 Respiratory Rate 16 Blood Pressure 128/61 143/60 H Pulse Oximetry 98 Oxygen Delivery Method Nasal Cannula Oxygen Flow Rate 2 MDM - Fever <FLORINDA Gambino - Last Filed: 02/20/22 15:03> Lab Data Lab results narrative: [facility] CLIA ID [id number] [address] [place] [address] RUN DATE: 02/20/22 Specimen Inquiry PAGE 1 RUN TIME: 1225 Name: Felicitas Smalls Age/Sex: 70/F Attend Dr: Carly Torrez D.O. Unit#: [id number] : 1950Location: ED Re08/04/20 Disch: Status: DEP ER SPEC #: [id number] OJSETTE: 08/04/20-1155 STATUS: COMP REQ #: [id number] SPDESC: RECD: 08/04/20-[address]: Carly Torrez D.O. SOURCE: UA Reflex ENTR: 08/04/20-[address]: FAX TO: ORDERED: URINE CULTURE Procedure Result Verified Site Urine Culture Final 08/06/20- 720 Organism 1 Escherichia coli#2 [place] Count >100,000 CFU/ml Organism 2 Escherichia coli [place] Count >100,000 CFU/ml 1. Escherichia coli#2 M.I.C. RX --------- --- * Amoxicillin/Clavulanate 4 S * Ampicillin >=32 R * Ampicillin/Sulbactam 16 I * Cefazolin <=4 S * Cefepime <=1 S * Ceftriaxone <=1 S * Ciprofloxacin <=0.25 S * Ertapenem <=0.5 S * Gentamicin <=1 S * Imipenem <=0.25 S * Levofloxacin <=0.12 S * Nitrofurantoin <=16 S * Tobramycin <=1 S * Trimethoprim/Sulfamethoxazole >=320 R * Piperacillin/Tazobactam <=4 S 2. Escherichia coli M.I.C. RX --------- --- * Amoxicillin/Clavulanate 8 S * Ampicillin >=32 R * Ampicillin/Sulbactam >=32 R * Cefazolin <=4 S * Cefepime <=1 S * Ceftriaxone <=1 S * Ciprofloxacin <=0.25 S * Ertapenem <=0.5 S * Gentamicin <=1 S * Imipenem <=0.25 S * Levofloxacin <=0.12 S * Nitrofurantoin <=16 S * Tobramycin <=1 S * Trimethoprim/Sulfamethoxazole >=320 R * Piperacillin/Tazobactam <=4 S Escherichia coli#2 Escherichia coli M.I.C. RX M.I.C. RX --------- --- --------- --- * Amoxicillin/Clavulanate 4 S 8 S * Ampicillin >=32 R >=32 R * Ampicillin/Sulbactam 16 I >=32 R * Cefazolin <=4 S <=4 S * Cefepime <=1 S <=1 S * Ceftriaxone <=1 S <=1 S * Ciprofloxacin <=0.25 S <=0.25 S * Ertapenem <=0.5 S <=0.5 S * Gentamicin <=1 S <=1 S * Imipenem <=0.25 S <=0.25 S * Levofloxacin <=0.12 S <=0.12 S * Nitrofurantoin <=16 S <=16 S * Tobramycin <=1 S <=1 S * Trimethoprim/Sulfamethoxazole >=320 R >=320 R * Piperacillin/Tazobactam <=4 S <=4 S History E coli and E coli 2. On most recent urine culture with resistance to ampicillin, ampicillin/sulbactam, trimethoprim/sulfamethoxazole with susceptibility to ceftriaxone, ciprofloxacin nitrofurantoin and Augmentin Result diagrams: 02/20/22 12:40 02/20/22 12:40 Labs: Lab Results 02/20/22 02/20/22 02/20/22 Range/Units 10:22 12:40 12:40 WBC 8.8 (4.5-11.0) X10^3/uL RBC 3.57 L (4.0-5.2) X10^6/uL Hgb 11.4 L (12.0-16.0) g/dL Hct 34.5 L (36-46) % MCV 96.8 (80-100) fL MCH 31.9 (26-34) PG MCHC 33.0 (30-36) % RDW 13.2 (11.6-14.8) % Plt Count 184 (150-400) X10^3/uL Neut % (Auto) Not Reportable Lymph % (Auto) Not Reportable [place] % (Auto) Not Reportable Eos % (Auto) Not Reportable Baso % (Auto) Not Reportable Lymph # (Auto) Not Reportable [place] # (Auto) Not Reportable Baso # (Auto) Not Reportable Total Counted 100 Seg Neutrophils % 73.0 H (38-70) % Band Neutrophils % 15.0 H (3-7) % Lymphocytes % (Manual) 8.0 L (25-45) % Monocytes % (Manual) 4.0 (2-11) % Neutrophils # (Manual) 7744 H (9280-4819) /uL RBC Morphology Normal morphology Sodium 130 L (137-145) mmol/L Potassium 4.0 (3.4-5.1) mmol/L Chloride 88 L (98-107) mmol/L Carbon Dioxide 28 (22-32) mmol/L BUN 29 H (7-17) mg/dL Creatinine 1.25 H (0.52-1.04) mg/dL Estimated GFR 45 L (>60) mL/min BUN/Creatinine Ratio 23.2 H (6-22) Glucose 711 H* (80-110) mg/dL Hemoglobin A1c (4.0-6.0) % Lactate (0.7-2.1) mmol/L Calcium 8.5 (8.4-10.2) mg/dL Magnesium (1.6-2.3) mg/dL Total Bilirubin 0.4 (0.2-1.3) mg/dL AST 49 H (14-36) IU/L ALT 39 H (<35) IU/L Alkaline Phosphatase 72 (38-126) U/L C-Reactive Protein 21.4 H (<1.0) mg/dL Total Protein 6.8 (6.3-8.2) g/dL Albumin 3.5 (3.5-5.0) g/dL Globulin 3.3 (1.7-4.1) g/dL Albumin/Globulin Ratio 1.1 (1.0-2.8) Procalcitonin (<0.5) ng/mL Urine Color Urine Appearance Urine pH (4.5-8.0) Ur Specific Pearson (1.000-1.035) Urine Protein (Negative) Urine Glucose (UA) (Negative) g/dL Urine Ketones (NEGATIVE) Urine Occult Blood (Negative) Urine Nitrate (Negative) Urine Bilirubin (NEGATIVE) Urine Urobilinogen (0.2) E.U./dL Ur Leukocyte Esterase (NEGATIVE) Urine RBC (0-5/HPF) Urine WBC (0-5/HPF) Ur Squamous Epith Cells (0-5/HPF) Amorphous Sediment Urine Bacteria (None) Ur Culture Indicated? Ketones (<0.27) mmol/L SARS-CoV-2 (PCR) Negative (Negative) Influenza A (RT-PCR) Flu a positive H (NEGATIVE) Influenza B (RT-PCR) Flu b negative (NEGATIVE) RSV (PCR) Negative (Negative) 02/20/22 02/20/22 02/20/22 Range/Units 12:40 12:40 12:40 WBC (4.5-11.0) X10^3/uL RBC (4.0-5.2) X10^6/uL Hgb (12.0-16.0) g/dL Hct (36-46) % MCV (80-100) fL MCH (26-34) PG MCHC (30-36) % RDW (11.6-14.8) % Plt Count (150-400) X10^3/uL Neut % (Auto) Lymph % (Auto) [place] % (Auto) Eos % (Auto) Baso % (Auto) Lymph # (Auto) [place] # (Auto) Baso # (Auto) Total Counted Seg Neutrophils % (38-70) % Band Neutrophils % (3-7) % Lymphocytes % (Manual) (25-45) % Monocytes % (Manual) (2-11) % Neutrophils # (Manual) (0864-3606) /uL RBC Morphology Sodium (137-145) mmol/L Potassium (3.4-5.1) mmol/L Chloride (98-107) mmol/L Carbon Dioxide (22-32) mmol/L BUN (7-17) mg/dL Creatinine (0.52-1.04) mg/dL Estimated GFR (>60) mL/min BUN/Creatinine Ratio (6-22) Glucose (80-110) mg/dL Hemoglobin A1c 11.8 H (4.0-6.0) % Lactate 3.6 H (0.7-2.1) mmol/L Calcium (8.4-10.2) mg/dL Magnesium 1.5 L (1.6-2.3) mg/dL Total Bilirubin (0.2-1.3) mg/dL AST (14-36) IU/L ALT (<35) IU/L Alkaline Phosphatase (38-126) U/L C-Reactive Protein (<1.0) mg/dL Total Protein (6.3-8.2) g/dL Albumin (3.5-5.0) g/dL Globulin (1.7-4.1) g/dL Albumin/Globulin Ratio (1.0-2.8) Procalcitonin (<0.5) ng/mL Urine Color Urine Appearance Urine pH (4.5-8.0) Ur Specific Pearson (1.000-1.035) Urine Protein (Negative) Urine Glucose (UA) (Negative) g/dL Urine Ketones (NEGATIVE) Urine Occult Blood (Negative) Urine Nitrate (Negative) Urine Bilirubin (NEGATIVE) Urine Urobilinogen (0.2) E.U./dL Ur Leukocyte Esterase (NEGATIVE) Urine RBC (0-5/HPF) Urine WBC (0-5/HPF) Ur Squamous Epith Cells (0-5/HPF) Amorphous Sediment Urine Bacteria (None) Ur Culture Indicated? Ketones 0.09 (<0.27) mmol/L SARS-CoV-2 (PCR) (Negative) Influenza A (RT-PCR) (NEGATIVE) Influenza B (RT-PCR) (NEGATIVE) RSV (PCR) (Negative) 02/20/22 02/20/22 Range/Units 12:40 12:50 WBC (4.5-11.0) X10^3/uL RBC (4.0-5.2) X10^6/uL Hgb (12.0-16.0) g/dL Hct (36-46) % MCV (80-100) fL MCH (26-34) PG MCHC (30-36) % RDW (11.6-14.8) % Plt Count (150-400) X10^3/uL Neut % (Auto) Lymph % (Auto) [place] % (Auto) Eos % (Auto) Baso % (Auto) Lymph # (Auto) [place] # (Auto) Baso # (Auto) Total Counted Seg Neutrophils % (38-70) % Band Neutrophils % (3-7) % Lymphocytes % (Manual) (25-45) % Monocytes % (Manual) (2-11) % Neutrophils # (Manual) (3816-8830) /uL RBC Morphology Sodium (137-145) mmol/L Potassium (3.4-5.1) mmol/L Chloride (98-107) mmol/L Carbon Dioxide (22-32) mmol/L BUN (7-17) mg/dL Creatinine (0.52-1.04) mg/dL Estimated GFR (>60) mL/min BUN/Creatinine Ratio (6-22) Glucose (80-110) mg/dL Hemoglobin A1c (4.0-6.0) % Lactate (0.7-2.1) mmol/L Calcium (8.4-10.2) mg/dL Magnesium (1.6-2.3) mg/dL Total Bilirubin (0.2-1.3) mg/dL AST (14-36) IU/L ALT (<35) IU/L Alkaline Phosphatase (38-126) U/L C-Reactive Protein (<1.0) mg/dL Total Protein (6.3-8.2) g/dL Albumin (3.5-5.0) g/dL Globulin (1.7-4.1) g/dL Albumin/Globulin Ratio (1.0-2.8) Procalcitonin 21.1 H (<0.5) ng/mL Urine Color Yellow Urine Appearance Sl cloudy Urine pH 6.0 (4.5-8.0) Ur Specific Pearson 1.010 (1.000-1.035) Urine Protein 1+ H (Negative) Urine Glucose (UA) 3+ H (Negative) g/dL Urine Ketones Negative (NEGATIVE) Urine Occult Blood 1+ H (Negative) Urine Nitrate Negative (Negative) Urine Bilirubin Negative (NEGATIVE) Urine Urobilinogen 0.2 (0.2) E.U./dL Ur Leukocyte Esterase Negative (NEGATIVE) Urine RBC 1-5/hpf (0-5/HPF) Urine WBC 1-5/hpf (0-5/HPF) Ur Squamous Epith Cells 0-1 /hpf (0-5/HPF) Amorphous Sediment 1+ Urine Bacteria Many (>30) H (None) Ur Culture Indicated? Specimen cultured Ketones (<0.27) mmol/L SARS-CoV-2 (PCR) (Negative) Influenza A (RT-PCR) (NEGATIVE) Influenza B (RT-PCR) (NEGATIVE) RSV (PCR) (Negative) Imaging Data CT scan - head: Radiologist's Impression: PROCEDURE:? CT HEAD/BRAIN WO CON ? INDICATIONS:? weakness, fall 1 week ago ? TECHNIQUE:? Noncontrast 4.5 mm thick angled axial sections acquired from the foramen magnum to the vertex, with coronal and sagittal reformats.? For radiation dose reduction, the following was used:? automated exposure control, adjustment of mA and/or kV according to patient size.? ? COMPARISON:? [facility], CT, CT HEAD/BRAIN WO CON, 08/04/2020, 10:34. ? FINDINGS:? Image quality:? Excellent.? ? CSF spaces:? Basal cisterns are patent.? No extra-axial fluid collections.? Ventricles are normal in size and shape.? ? Brain:? No midline shift.? No intracranial masses or hemorrhage.? No area of hypodensity in a large vascular distribution to suggest acute infarction. Periventricular hypodensity consistent with chronic microvascular ischemic change. Age-related parenchymal loss. ? ? Skull and face:? Calvarium and visualized facial bones are intact, without suspicious lesions.? Atrophic left globe.? ? Sinuses:? Mild mucosal thickening in the maxillary, paranasal, sphenoid sinuses.? Mastoids are clear. ? IMPRESSION:? No acute intracranial abnormality. Chronic microvascular ischemic disease. ? ? Dictated by: Jorge Slaughter M.D. on 02/20/2022 at 13:04 ? ? Approved by: Jorge Slaughter M.D. on 02/20/2022 at 13:09 ? pelvis xr: Radiologist's Impression: PROCEDURE:? XR PELVIS 1-2V ? INDICATIONS:? weakness, fall 1 week ago ? TECHNIQUE:? 1 view(s) of the pelvis acquired.? ? COMPARISON:? None. ? FINDINGS:? ? Bones:? No fractures or dislocations.? No suspicious bony lesions.? ? Soft tissues:? Visualized bowel gas pattern is normal.? No suspicious soft tissue calcifications.? Arterial vascular calcifications.? ? IMPRESSION:? No fracture is seen. ? Consider CT bony pelvis if concern for occult fracture. ? ? Dictated by: Jorge Slaughter M.D. on 02/20/2022 at 13:30 ? ? Approved by: Jorge Slaughter M.D. on 02/20/2022 at 13:31 ? Chest x-ray: Radiologist's Impression: PROCEDURE:? XR CHEST 1V ? INDICATIONS:? weakness, fall 1 week ago ? TECHNIQUE:? One view of the chest was acquired.? ? COMPARISON:? [facility], , XR CHEST 1V, 08/04/2020, 9:31. ? FINDINGS:? ? Surgical changes and devices:? None.? ? Lungs and pleura:? Moderate airspace opacity within the left mid lung.? No pleural effusions or pneumothorax.? ? Mediastinum:? Mediastinal contours appear normal.? Heart size is normal.? ? Bones and chest wall:? No suspicious bony lesions.? Overlying soft tissues appear unremarkable.? ? IMPRESSION:? Left lung pneumonia. Continued plain film surveillance is recommended to ensure resolution, and to exclude underlying or central malignancy. ? ? Dictated by: Zbigniew Singh M.D. on 02/20/2022 at 13:23 ? ? Approved by: Zbigniew Singh M.D. on 02/20/2022 at 13:23 ? lumbar xr: Radiologist's Impression: PROCEDURE:? XR LUMBAR SPINE 2-3V ? INDICATIONS:? weakness, fall 1 week ago ? TECHNIQUE:? 2 views of the lumbar spine were acquired.? ? COMPARISON:? [facility], , SPINE LUMB 2 OR 3VW, 08/02/2014, 11:44. ? FINDINGS:? ? Bones:? 5 [id number] vertebrae are present.? There is normal bony alignment.? Minimal height loss at L3.? No suspicious bony lesions.? ? Soft tissues:? Overlying bowel gas pattern is normal.? No suspicious soft tissue calcifications.? Cholecystectomy clips.? ? ? IMPRESSION:? Minimal height loss at L3. ? ? Dictated by: Jorge Slaughter M.D. on 02/20/2022 at 13:34 ? ? Approved by: Jorge Slaughter M.D. on 02/20/2022 at 13:36 ? Treatment and disposition Social Determinants of Health that impact treatment or disposition: Dementia, Citizen [place] is her 1st language, ill Code Status and discussions:: Patient's niece states full code today, no documented history of code status Shared decision making:: With patient's niece, and the patient regarding plan of care and admission MDM Narrative Medical decision making narrative: CC: Weakness, possible UTI, ill for 2 days This is a 72-year-old female with history of dementia, insulin-dependent diabetes, hyperlipidemia, frequent UTIs and requires care for ADLs by niece who brings her into the emergency today with concern for diarrhea 2 days ago fever this morning, runny nose with congestion, increased fatigue and she is concerned for another urinary tract infection. Her niece is not the DPOA. She endorses that patient's urine has had a foul odor for 2 days. Differential diagnoses include, but are not limited to: Closed head injury, intracranial hemorrhage secondary to head injury, urosepsis she urinary tract infection, sepsis due to other source, pneumonia, hyperglycemia, hypoglycemia, electrolyte abnormality, viral infection including COVID, influenza, musculoskeletal injury secondary to fall, cauda equina, Complicating co-morbidities: Diabetes, recent fall Social determinants of health that may impact treatment or disposition: none Course of Care: Met with patient and her niece, patient is sleeping, arousable by voice, nontender to palpation, diminished breath sounds without hypoxia, ordered imaging, additional lab work, straight catheterization urine, and found her most recent urine culture with E coli 1 and 2 with multiple drug resistance shows susceptibility to ceftriaxone. Dr. Zaragoza accepts for admission at 1330 pending lumbar spine x-ray without acute abnormality. Ordered IV antibiotics, patient's urine UA came back positive for infection will treat with ceftriaxone and azithromycin for lobar pneumonia. Will treat with Tamiflu for influenza. Patient and niece was informed of lab and imaging results, pertinent diagnoses, consulting physicians, and treatment plan. I have spoken with the patient in regard to admission, patient understands and agrees. I have communicated the patient's evaluation and treatment plan to the admitting physician who agrees with admission. All questions answered at this time. Exam documented above, pertinent findings include: Diminished breath sounds, decreased level of alertness, appears dehydrated Lab test results independently reviewed as above. Pertinent findings: No leukocytosis however there is a left shift and mild anemia, falls hyponatremia in the setting of hyperglycemia with a glucose of 711, worsening creatinine on baseline 1.25 with history of 1.1 and GFR today 45 down from 49, lactate of 3.6, hypomagnesemia 1.5, mild elevation to a CML T, CRP of 21.4, urine is cloudy with many bacteria, urine cultures pending, blood cultures are pending Procalcitonin came back at 21.1. Patient was accepted for admission and further orders were placed Imaging studies independently reviewed: Head CT, lumbar x-ray, pelvis x-ray, chest x-ray I have reviewed the patient's vital signs, past medical records and encounters if available, and nursing notes. Patient's symptoms improved over duration of stay with above-stated therapies. Decision rules/scores evaluated: PSI/PORT score of 84 risk class 3 Disposition: Admitted as inpatient [facility]: #[id number] - Emergency Medicine: Utilization of CT for Minor Blunt Head Trauma (Adult) x Patient is 18 or older, presenting with minor blunt head trauma. Head CT (including cosigned orders) was ordered by an emergency healthcare specialist for trauma because (select one or more): [S[employer]ISFIES [employer]CE] Reasons: [x] Patient is 65 or older [x] Patient GCS < 15 [] Patient has focal neurologic deficit IJoanie ARNP, personally performed the services described in the documentation, and it accurately records my words and actions. I collaborated with the ED attending physician for TROY level 2, 3, and some level 4s as needed Electronically signed by: FLORINDA David <Kwan Barba, DO - Last Filed: 02/20/22 15:04> Lab Data Labs: Lab Results 02/20/22 02/20/22 02/20/22 Range/Units 10:22 12:40 12:40 WBC 8.8 (4.5-11.0) X10^3/uL RBC 3.57 L (4.0-5.2) X10^6/uL Hgb 11.4 L (12.0-16.0) g/dL Hct 34.5 L (36-46) % MCV 96.8 (80-100) fL MCH 31.9 (26-34) PG MCHC 33.0 (30-36) % RDW 13.2 (11.6-14.8) % Plt Count 184 (150-400) X10^3/uL Neut % (Auto) Not Reportable Lymph % (Auto) Not Reportable [place] % (Auto) Not Reportable Eos % (Auto) Not Reportable Baso % (Auto) Not Reportable Lymph # (Auto) Not Reportable [place] # (Auto) Not Reportable Baso # (Auto) Not Reportable Total Counted 100 Seg Neutrophils % 73.0 H (38-70) % Band Neutrophils % 15.0 H (3-7) % Lymphocytes % (Manual) 8.0 L (25-45) % Monocytes % (Manual) 4.0 (2-11) % Neutrophils # (Manual) 7744 H (7483-5810) /uL RBC Morphology Normal morphology Sodium 130 L (137-145) mmol/L Potassium 4.0 (3.4-5.1) mmol/L Chloride 88 L (98-107) mmol/L Carbon Dioxide 28 (22-32) mmol/L BUN 29 H (7-17) mg/dL Creatinine 1.25 H (0.52-1.04) mg/dL Estimated GFR 45 L (>60) mL/min BUN/Creatinine Ratio 23.2 H (6-22) Glucose 711 H* (80-110) mg/dL Hemoglobin A1c (4.0-6.0) % Lactate (0.7-2.1) mmol/L Calcium 8.5 (8.4-10.2) mg/dL Magnesium (1.6-2.3) mg/dL Total Bilirubin 0.4 (0.2-1.3) mg/dL AST 49 H (14-36) IU/L ALT 39 H (<35) IU/L Alkaline Phosphatase 72 (38-126) U/L C-Reactive Protein 21.4 H (<1.0) mg/dL Total Protein 6.8 (6.3-8.2) g/dL Albumin 3.5 (3.5-5.0) g/dL Globulin 3.3 (1.7-4.1) g/dL Albumin/Globulin Ratio 1.1 (1.0-2.8) Procalcitonin (<0.5) ng/mL Urine Color Urine Appearance Urine pH (4.5-8.0) Ur Specific [place] (1.000-1.035) Urine Protein (Negative) Urine Glucose (UA) (Negative) g/dL Urine Ketones (NEGATIVE) Urine Occult Blood (Negative) Urine Nitrate (Negative) Urine Bilirubin (NEGATIVE) Urine Urobilinogen (0.2) E.U./dL Ur Leukocyte Esterase (NEGATIVE) Urine RBC (0-5/HPF) Urine WBC (0-5/HPF) Ur Squamous Epith Cells (0-5/HPF) Amorphous Sediment Urine Bacteria (None) Ur Culture Indicated? Ketones (<0.27) mmol/L SARS-CoV-2 (PCR) Negative (Negative) Influenza A (RT-PCR) Flu a positive H (NEGATIVE) Influenza B (RT-PCR) Flu b negative (NEGATIVE) RSV (PCR) Negative (Negative) 02/20/22 02/20/22 02/20/22 Range/Units 12:40 12:40 12:40 WBC (4.5-11.0) X10^3/uL RBC (4.0-5.2) X10^6/uL Hgb (12.0-16.0) g/dL Hct (36-46) % MCV (80-100) fL MCH (26-34) PG MCHC (30-36) % RDW (11.6-14.8) % Plt Count (150-400) X10^3/uL Neut % (Auto) Lymph % (Auto) [place] % (Auto) Eos % (Auto) Baso % (Auto) Lymph # (Auto) [place] # (Auto) Baso # (Auto) Total Counted Seg Neutrophils % (38-70) % Band Neutrophils % (3-7) % Lymphocytes % (Manual) (25-45) % Monocytes % (Manual) (2-11) % Neutrophils # (Manual) (1659-4010) /uL RBC Morphology Sodium (137-145) mmol/L Potassium (3.4-5.1) mmol/L Chloride (98-107) mmol/L Carbon Dioxide (22-32) mmol/L BUN (7-17) mg/dL Creatinine (0.52-1.04) mg/dL Estimated GFR (>60) mL/min BUN/Creatinine Ratio (6-22) Glucose (80-110) mg/dL Hemoglobin A1c 11.8 H (4.0-6.0) % Lactate 3.6 H (0.7-2.1) mmol/L Calcium (8.4-10.2) mg/dL Magnesium 1.5 L (1.6-2.3) mg/dL Total Bilirubin (0.2-1.3) mg/dL AST (14-36) IU/L ALT (<35) IU/L Alkaline Phosphatase (38-126) U/L C-Reactive Protein (<1.0) mg/dL Total Protein (6.3-8.2) g/dL Albumin (3.5-5.0) g/dL Globulin (1.7-4.1) g/dL Albumin/Globulin Ratio (1.0-2.8) Procalcitonin (<0.5) ng/mL Urine Color Urine Appearance Urine pH (4.5-8.0) Ur Specific [place] (1.000-1.035) Urine Protein (Negative) Urine Glucose (UA) (Negative) g/dL Urine Ketones (NEGATIVE) Urine Occult Blood (Negative) Urine Nitrate (Negative) Urine Bilirubin (NEGATIVE) Urine Urobilinogen (0.2) E.U./dL Ur Leukocyte Esterase (NEGATIVE) Urine RBC (0-5/HPF) Urine WBC (0-5/HPF) Ur Squamous Epith Cells (0-5/HPF) Amorphous Sediment Urine Bacteria (None) Ur Culture Indicated? Ketones 0.09 (<0.27) mmol/L SARS-CoV-2 (PCR) (Negative) Influenza A (RT-PCR) (NEGATIVE) Influenza B (RT-PCR) (NEGATIVE) RSV (PCR) (Negative) 02/20/22 02/20/22 Range/Units 12:40 12:50 WBC (4.5-11.0) X10^3/uL RBC (4.0-5.2) X10^6/uL Hgb (12.0-16.0) g/dL Hct (36-46) % MCV (80-100) fL MCH (26-34) PG MCHC (30-36) % RDW (11.6-14.8) % Plt Count (150-400) X10^3/uL Neut % (Auto) Lymph % (Auto) [place] % (Auto) Eos % (Auto) Baso % (Auto) Lymph # (Auto) [place] # (Auto) Baso # (Auto) Total Counted Seg Neutrophils % (38-70) % Band Neutrophils % (3-7) % Lymphocytes % (Manual) (25-45) % Monocytes % (Manual) (2-11) % Neutrophils # (Manual) (9665-9172) /uL RBC Morphology Sodium (137-145) mmol/L Potassium (3.4-5.1) mmol/L Chloride (98-107) mmol/L Carbon Dioxide (22-32) mmol/L BUN (7-17) mg/dL Creatinine (0.52-1.04) mg/dL Estimated GFR (>60) mL/min BUN/Creatinine Ratio (6-22) Glucose (80-110) mg/dL Hemoglobin A1c (4.0-6.0) % Lactate (0.7-2.1) mmol/L Calcium (8.4-10.2) mg/dL Magnesium (1.6-2.3) mg/dL Total Bilirubin (0.2-1.3) mg/dL AST (14-36) IU/L ALT (<35) IU/L Alkaline Phosphatase (38-126) U/L C-Reactive Protein (<1.0) mg/dL Total Protein (6.3-8.2) g/dL Albumin (3.5-5.0) g/dL Globulin (1.7-4.1) g/dL Albumin/Globulin Ratio (1.0-2.8) Procalcitonin 21.1 H (<0.5) ng/mL Urine Color Yellow Urine Appearance Sl cloudy Urine pH 6.0 (4.5-8.0) Ur Specific [place] 1.010 (1.000-1.035) Urine Protein 1+ H (Negative) Urine Glucose (UA) 3+ H (Negative) g/dL Urine Ketones Negative (NEGATIVE) Urine Occult Blood 1+ H (Negative) Urine Nitrate Negative (Negative) Urine Bilirubin Negative (NEGATIVE) Urine Urobilinogen 0.2 (0.2) E.U./dL Ur Leukocyte Esterase Negative (NEGATIVE) Urine RBC 1-5/hpf (0-5/HPF) Urine WBC 1-5/hpf (0-5/HPF) Ur Squamous Epith Cells 0-1 /hpf (0-5/HPF) Amorphous Sediment 1+ Urine Bacteria Many (>30) H (None) Ur Culture Indicated? Specimen cultured Ketones (<0.27) mmol/L SARS-CoV-2 (PCR) (Negative) Influenza A (RT-PCR) (NEGATIVE) Influenza B (RT-PCR) (NEGATIVE) RSV (PCR) (Negative) Discharge Plan Departure Patient Disposition: Admitted As Inpatient Clinical Impression: History of diabetes mellitus, Acute hyperglycemia, Influenza A, Lobar pneumonia, Hypomagnesemia Urinary tract infection Qualifiers: Urinary tract infection type: acute cystitis Hematuria presence: without hematuria Qualified Code(s): N30.00 - Acute cystitis without hematuria Admit Date/Time: 02/20/22 14:58 Admit Provider: Christian Zaragoza <Kwan Barba DO - Last Filed: 02/20/22 15:04> Cosign ED Attending Cosignature Attestation: Dr Barba Co-Sign Statement: I was available for consultation during this patient's emergency department visit. This chart is signed by myself for administrative purposes only. I did not have direct contact with this patient during this visit. They were seen independently by the APC.
[2022-02-20 12:28] LABS: COVID-19 CEPHEID 4-PLEX PCR Negative (Negative)
[2022-02-20 12:50] LABS: Hematocrit 34.5 % (36-46); Hemoglobin 11.4 g/dL (12.0-16.0); Mean Corpuscular Hemoglobin 31.9 PG (26-34); Mean Corpuscular Volume 96.8 fL (80-100); Platelet Count 184 X10^3/uL (150-400); Red Blood Cell Count 3.57 X10^6/uL (4.0-5.2); Red Cell Distribution Width 13.2 % (11.6-14.8); White Blood Cell Count 8.8 X10^3/uL (4.5-11.0)
[2022-02-20 13:00] LABS: Add Manual Diff / Slide Review YES
[2022-02-20 13:01] LABS: Lactate (Lactic Acid) 3.6 mmol/L (0.7-2.1)
[2022-02-20 13:02] LABS: Alanine Aminotransferase 39 IU/L (<35); Albumin 3.5 g/dL (3.5-5.0); Albumin Globulin Ratio 1.1 (1.0-2.8); Alkaline Phosphatase 72 U/L (38-126); Aspartate Aminotransferase 49 IU/L (14-36); BUN Creatinine Ratio 23.2 (6-22); Bilirubin Total 0.4 mg/dL (0.2-1.3); Blood Urea Nitrogen 29 mg/dL (7-17); Calcium 8.5 mg/dL (8.4-10.2); Carbon Dioxide 28 mmol/L (22-32); Chloride 88 mmol/L (98-107); Estimated Glomerular Filt Rate 45 mL/min (>60); Globulin 3.3 g/dL (1.7-4.1); HEMOLYSIS < 15 (0-50); Sodium 130 mmol/L (137-145); Total Protein 6.8 g/dL (6.3-8.2)
[2022-02-20 13:03] LABS: Neutrophils Absolute Manual 7744 /uL (3000-5900); RBC Morphology Normal Morphology; Total Cells Counted 100
[2022-02-20 13:09] LABS: Glucose 711 mg/dL (80-110)
[2022-02-20 13:17] LABS: C-Reactive Protein Quant 21.4 mg/dL (<1.0)
[2022-02-20 13:34] LABS: Magnesium 1.5 mg/dL (1.6-2.3)
[2022-02-20 13:36] LABS: Appearance Urine UA SL CLOUDY; Bilirubin Urine UA NEGATIVE (NEGATIVE); Color Urine UA YELLOW; Glucose Urine UA 3+ g/dL (Negative); Ketones Urine UA NEGATIVE (NEGATIVE); Leukocyte Esterase Urine UA NEGATIVE (NEGATIVE); Nitrite Urine UA NEGATIVE (Negative); Occult Blood Urine UA 1+ (Negative); Protein Urine UA 1+ (Negative); Urobilinogen Urine UA 0.2 E.U./dL (0.2)
[2022-02-20 13:37] LABS: Ketones (Beta-Hydroxybutyrate) 0.09 mmol/L (<0.27)
[2022-02-20 13:42] LABS: Amorphous Sediment Urine 1+; Bacteria Urine Many (>30); Culture Indicated Urine Specimen Cultured; RBC Urine 1-5/HPF (0-5/HPF); Squamous Epithelial Cell Urine 0-1 /HPF (0-5/HPF); WBC Urine 1-5/HPF (0-5/HPF)
[2022-02-20] MEDS: OSELTAMIVIR 75 MG CAPSULE PO ×2 (13:58→21:33)
[2022-02-20] MEDS: SODIUM CHLORIDE 0.9% 1,000 ML 1000 ML IV ×3 (13:58→17:19)
[2022-02-20] MEDS: cefTRIAXone 1,000 MG in SODIUM CHLORIDE 0.9% 100 ML 200 MG IV (14:01)
[2022-02-20] MEDS: AZITHROMYCIN 250 MG TABLET 500 MG PO (14:01)
--- NOTE | 2022-02-20 14:25 | PC.NURSE ---
Family member states that pt has been feeling unwell since friday. Pt is not panamanian speaking, speaks Pakistani. Pt able to take meds ordered PO with water.
[2022-02-20 14:32] LABS: Hemoglobin A1C% w Est Avg Glu 11.8 % (4.0-6.0)
[2022-02-20 14:45] LABS: Reflexed Lactate in 2 Hours Y
[2022-02-20 14:49] LABS: Procalcitonin 21.1 ng/mL (<0.5)
[2022-02-20] MEDS: INSULIN DRIP PREMIX 100 UNIT/100 ML PLAST..BAG 6 UNIT IV (15:27)
[2022-02-20] MEDS: PIPERACILLIN/TAZO 4.5 GM in SODIUM CHLORIDE 0.9% 100 ML IV (15:30)
[2022-02-20] MEDS: MAGNESIUM SULFATE 2 GM/50 ML PIGGYBACK IV (15:31)
[2022-02-20 16:57] LABS: Blood Urea Nitrogen 25 mg/dL (7-17); Calcium 7.5 mg/dL (8.4-10.2); Carbon Dioxide 23 mmol/L (22-32); Chloride 101 mmol/L (98-107); Estimated Glomerular Filt Rate 59 mL/min (>60); Glucose 398 mg/dL (80-110); HEMOLYSIS < 15 (0-50); Sodium 138 mmol/L (137-145)
[2022-02-20] MEDS: DEXTROSE 5%-0.45% NS 1,000 ML 100 ML IV (17:00)
[2022-02-20] MEDS: POTASSIUM CHLORIDE 20 MEQ TAB 40 MEQ PO (17:25)
[2022-02-20] MEDS: POTASSIUM CHLORIDE IN WATER 10 MEQ/100 ML PIGGYBACK 100 MEQ IV ×4 (17:25→21:29)
--- NOTE | 2022-02-20 17:26 | PM.HP.1 ---
History of Present Illness History of Present Illness Date Patient Seen: 02/20/22 Time Patient Seen: 17:26 Chief complaint: fever/congestion/cold/weak/ T-1 Narrative: Felicitas Smalls is a 72yo Marshellese speaking F with PMH of left eye enucleation, recurrent UTI, dementia, DM2, HTN, and HLD who presents to the ED with concern for fevers, congestion, fatigue, and concern for UTI due to fowl-smelling urine for 2 days. History is taken from the chart as patient does not speak vietnamese. Per her niece who helps care for her, she has significant dementia. It is unclear who is the patient's DPOA but the niece is not according to her. Patient found in the ED to have BG of 700, lactate of 3.6, mag 1.5, procal 21, CRP 21, A1c 11.8% and be positive for flu. Unclear if she got her flu vaccine this winter. CXR had left lung infiltrate concerning for pneumonia. UA had many bacteria but no pyuria. At the bedside patient responds to voice and says her name is Felicitas. When asked her nieces name she says iesha mata. She is on 2L NC. Patient History Medical History Dementia Diabetes Hyponatremia Surgical History H/O enucleation of left eyeball Family & Social History Family History Father Diabetes mellitus Smoker Mother Diabetes mellitus Brother Diabetes mellitus Sister Heart attack Daughter Diabetes mellitus Social History: household members family Safety & Behavioral: Feels Safe in Current Yes Environment Been Physically Hurt or No Threatened By a Person Tobacco & Substance use: Smoking Status Never smoker alcohol intake never Substance Use Type does not use Meds Home Medications and Allergies Home Medications Medication Instructions Recorded Confirmed Type aspirin 81 mg tablet,delayed 81 mg PO QAM 04/17/19 04/16/20 History release (Adult Low Dose Aspirin) insulin glargine 100 unit/mL 6 unit SUBCUT BID 04/17/19 04/16/20 History subcutaneous solution (Lantus U-100 Insulin) metformin 500 mg tablet 500 mg BID 04/17/19 04/16/20 History lisinopril 10 mg tablet 10 mg PO QAM 04/16/20 04/16/20 History multivitamin 1 tab PO QAM 04/16/20 04/16/20 History simvastatin 20 mg tablet 20 mg PO BEDTIME 04/16/20 04/16/20 History amoxicillin 875 mg-potassium 1 tab PO BID #7 tabs 04/20/20 Rx clavulanate 125 mg tablet (Augmentin) Allergies Allergy/AdvReac Type Severity Reaction Status Date / Time No Known Drug Allergies Allergy Verified 02/20/22 10:19 Review of Systems Review of Systems Narrative: All other systems reviewed with the patient and are negative unless otherwise stated. Exam Vital Signs (past 8 hours): - 02/20/22 10:19 02/20/22 13:43 02/20/22 13:44 Temperature 98.0 F Pulse Rate 88 77 77 Respiratory Rate 15 Blood Pressure 131/60 Pulse Oximetry 94 92 92 Oxygen Delivery Method Room Air Room Air Oxygen Flow Rate 02/20/22 13:44 02/20/22 14:00 02/20/22 14:00 Temperature Pulse Rate 75 Respiratory Rate 16 Blood Pressure 128/61 143/60 H Pulse Oximetry 98 Oxygen Delivery Method Nasal Cannula Oxygen Flow Rate 2 02/20/22 14:30 02/20/22 14:30 02/20/22 15:00 Temperature Pulse Rate 78 Respiratory Rate 18 Blood Pressure 153/68 H 168/75 H Pulse Oximetry Oxygen Delivery Method Oxygen Flow Rate 02/20/22 15:00 02/20/22 16:00 02/20/22 17:00 Temperature 98.5 F Pulse Rate 85 Respiratory Rate 17 Blood Pressure 127/59 L Pulse Oximetry 98 Oxygen Delivery Method Oxygen Flow Rate 02/20/22 17:00 Temperature Pulse Rate 87 Respiratory Rate 21 Blood Pressure Pulse Oximetry 93 Oxygen Delivery Method Oxygen Flow Rate Oxygen Delivery Method Nasal Cannula Oxygen Flow Rate 2 Narrative Exam Narrative: GEN: no acute distress, sleepy, responds in 1-2 words HEENT: moist mucous membranes, PERRL NECK: trachea midline, no JVD CV: regular rate and rhythm, no murmurs PULM: clear bilaterally ABD: soft, nontender, nondistended, no organomegaly EXT: warm and well perfused with no edema NEURO: awake, alert, oriented to person only, no focal deficits Objective Labs Result Diagrams: 02/20/22 12:40 02/20/22 16:36 Labs: Laboratory Results - last 24 hr 02/20/22 02/20/22 02/20/22 10:22 12:40 12:40 WBC 8.8 RBC 3.57 L Hgb 11.4 L Hct 34.5 L MCV 96.8 MCH 31.9 MCHC 33.0 RDW 13.2 Plt Count 184 Neut % (Auto) Not Reportable Lymph % (Auto) Not Reportable [place] % (Auto) Not Reportable Eos % (Auto) Not Reportable Baso % (Auto) Not Reportable Lymph # (Auto) Not Reportable [place] # (Auto) Not Reportable Baso # (Auto) Not Reportable Total Counted 100 Seg Neutrophils % 73.0 H Band Neutrophils % 15.0 H Lymphocytes % (Manual) 8.0 L Monocytes % (Manual) 4.0 Neutrophils # (Manual) 7744 H RBC Morphology Normal morphology Sodium 130 L Potassium 4.0 Chloride 88 L Carbon Dioxide 28 BUN 29 H Creatinine 1.25 H Estimated GFR 45 L BUN/Creatinine Ratio 23.2 H Glucose 711 H* Hemoglobin A1c Lactate Calcium 8.5 Magnesium Total Bilirubin 0.4 AST 49 H ALT 39 H Alkaline Phosphatase 72 C-Reactive Protein 21.4 H Total Protein 6.8 Albumin 3.5 Globulin 3.3 Albumin/Globulin Ratio 1.1 Procalcitonin Urine Color Urine Appearance Urine pH Ur Specific [place] Urine Protein Urine Glucose (UA) Urine Ketones Urine Occult Blood Urine Nitrate Urine Bilirubin Urine Urobilinogen Ur Leukocyte Esterase Urine RBC Urine WBC Ur Squamous Epith Cells Amorphous Sediment Urine Bacteria Ur Culture Indicated? Nasal Screen MRSA (PCR) Ketones SARS-CoV-2 (PCR) Negative Influenza A (RT-PCR) Flu a positive H Influenza B (RT-PCR) Flu b negative RSV (PCR) Negative 02/20/22 02/20/22 02/20/22 12:40 12:40 12:40 WBC RBC Hgb Hct MCV MCH MCHC RDW Plt Count Neut % (Auto) Lymph % (Auto) [place] % (Auto) Eos % (Auto) Baso % (Auto) Lymph # (Auto) [place] # (Auto) Baso # (Auto) Total Counted Seg Neutrophils % Band Neutrophils % Lymphocytes % (Manual) Monocytes % (Manual) Neutrophils # (Manual) RBC Morphology Sodium Potassium Chloride Carbon Dioxide BUN Creatinine Estimated GFR BUN/Creatinine Ratio Glucose Hemoglobin A1c 11.8 H Lactate 3.6 H Calcium Magnesium 1.5 L Total Bilirubin AST ALT Alkaline Phosphatase C-Reactive Protein Total Protein Albumin Globulin Albumin/Globulin Ratio Procalcitonin Urine Color Urine Appearance Urine pH Ur Specific [place] Urine Protein Urine Glucose (UA) Urine Ketones Urine Occult Blood Urine Nitrate Urine Bilirubin Urine Urobilinogen Ur Leukocyte Esterase Urine RBC Urine WBC Ur Squamous Epith Cells Amorphous Sediment Urine Bacteria Ur Culture Indicated? Nasal Screen MRSA (PCR) Ketones 0.09 SARS-CoV-2 (PCR) Influenza A (RT-PCR) Influenza B (RT-PCR) RSV (PCR) 02/20/22 02/20/22 02/20/22 12:40 12:50 15:17 WBC RBC Hgb Hct MCV MCH MCHC RDW Plt Count Neut % (Auto) Lymph % (Auto) [place] % (Auto) Eos % (Auto) Baso % (Auto) Lymph # (Auto) [place] # (Auto) Baso # (Auto) Total Counted Seg Neutrophils % Band Neutrophils % Lymphocytes % (Manual) Monocytes % (Manual) Neutrophils # (Manual) RBC Morphology Sodium Potassium Chloride Carbon Dioxide BUN Creatinine Estimated GFR BUN/Creatinine Ratio Glucose Hemoglobin A1c Lactate Calcium Magnesium Total Bilirubin AST ALT Alkaline Phosphatase C-Reactive Protein Total Protein Albumin Globulin Albumin/Globulin Ratio Procalcitonin 21.1 H Urine Color Yellow Urine Appearance Sl cloudy Urine pH 6.0 Ur Specific [place] 1.010 Urine Protein 1+ H Urine Glucose (UA) 3+ H Urine Ketones Negative Urine Occult Blood 1+ H Urine Nitrate Negative Urine Bilirubin Negative Urine Urobilinogen 0.2 Ur Leukocyte Esterase Negative Urine RBC 1-5/hpf Urine WBC 1-5/hpf Ur Squamous Epith Cells 0-1 /hpf Amorphous Sediment 1+ Urine Bacteria Many (>30) H Ur Culture Indicated? Specimen cultured Nasal Screen MRSA (PCR) Negative for mrsa Ketones SARS-CoV-2 (PCR) Influenza A (RT-PCR) Influenza B (RT-PCR) RSV (PCR) 02/20/22 02/20/22 15:30 16:36 WBC RBC Hgb Hct MCV MCH MCHC RDW Plt Count Neut % (Auto) Lymph % (Auto) [place] % (Auto) Eos % (Auto) Baso % (Auto) Lymph # (Auto) [place] # (Auto) Baso # (Auto) Total Counted Seg Neutrophils % Band Neutrophils % Lymphocytes % (Manual) Monocytes % (Manual) Neutrophils # (Manual) RBC Morphology Sodium 138 Potassium 3.0 L Chloride 101 Carbon Dioxide 23 BUN 25 H Creatinine 1.00 Estimated GFR 59 L BUN/Creatinine Ratio 25.0 H Glucose 398 H D Hemoglobin A1c Lactate 3.0 H Calcium 7.5 L Magnesium Total Bilirubin AST ALT Alkaline Phosphatase C-Reactive Protein Total Protein Albumin Globulin Albumin/Globulin Ratio Procalcitonin Urine Color Urine Appearance Urine pH Ur Specific [place] Urine Protein Urine Glucose (UA) Urine Ketones Urine Occult Blood Urine Nitrate Urine Bilirubin Urine Urobilinogen Ur Leukocyte Esterase Urine RBC Urine WBC Ur Squamous Epith Cells Amorphous Sediment Urine Bacteria Ur Culture Indicated? Nasal Screen MRSA (PCR) Ketones SARS-CoV-2 (PCR) Influenza A (RT-PCR) Influenza B (RT-PCR) RSV (PCR) Assessment & Plan Assessment & Plan narrative: # HHS in setting of poorly controlled DM2, acute and present on admission -BG 700 in ED, bicarb normal so unlikely to be DKA. With elevated Cr and lactate likely hypovolemic from osmotic diuresis. -s/p 1L in ED, will give additional 2L -continue insulin drip per non-DKA orders, then transition once at goal 150 back to home lantus 10u daily plus SSI -A1c 11.8%, diabetes education consulted # concern for developing sepsis -secondary to CAP vs influenza, with end organ damage evidenced by elevated lactate, Cr and LFT's. Procal significantly elevated at 21. -broad spectrum abx initiated, will deescalate per culture data -f/u blood cultures # CAP with influenza A positive causing hypoxemic resp failure -left infiltrate on CXR concerning for superimposed bacterial pneumonia, patient requiring 2L NC to maintain sats at 93% -Zosyn and azithro ordered -tamiflu BID for 5 days if hospital has in stock -droplet precautions # lactic acidemia -LA 3.6 on admission -downtrending with boluses, continue to check until resolved # hypomagnesemia, acute vs chronic -mag 1.5 on admission -replete and monitor # MINNIE, resolved -Cr 1.25 then improved to 1 with fluids # elevated LFT's, chronic -LFTs chronically elevated back to 2020 per chart -check hepatitis panel Code status is Full code for now, patient unable to provide and DPOA unable to be contacted. COVID negative, flu positive. DVT prophylaxis with hepatin subq. Proxy is unclear. I have reviewed home meds and used all available resources to reconcile the home meds. This patient will be admitted as inpatient and will require greater than 2 midnights of hospital time to treat HHS and pneumonia. Time Spent With Patient Critical Care time: I spent a total of [] minutes of critical care time on this patient's care today; this time is exclusive of procedural time.
--- NOTE | 2022-02-20 17:52 | PC.NURSE ---
Admit Note Patient arrived to room 230 from ER at 1515. Lifted across to bed 3 person assist. Pt opens eyes to voice and to her name. On 3L NC, SpO2 93-94%. Lungs coarse with rhonchi bilaterally. Unable to complete admission assessment and unable to reconcile home meds. Attempted to reach tomy Alfonso on 3 different numbers within chart ([phone], , and [phone]) and none of the numbers were in service, unable to reach niece. Pt unable to answer any questions or make needs known, sleepy. Speaks [place], network management specialist service attempted with no difference in comprehension noted. Bladder scanned for 500 ml in bladder and order received for dowling placement which was done. Large amount yellow urine resulting (see I and O). Insulin gtt initiated on arrival following non-DKA protocol. Took PO potassium dissolved into applesauce without issue, also swallowed several sips of water without issue, no coughing or s/sx aspiration. Call light within reach.
[2022-02-20 20:01] LABS: BUN Creatinine Ratio 23.9 (6-22); Blood Urea Nitrogen 22 mg/dL (7-17); Calcium 7.6 mg/dL (8.4-10.2); Carbon Dioxide 23 mmol/L (22-32); Chloride 102 mmol/L (98-107); Estimated Glomerular Filt Rate > 60 mL/min (>60); Glucose 169 mg/dL (80-110); HEMOLYSIS < 15 (0-50); Sodium 139 mmol/L (137-145)
[2022-02-20 20:06] LABS: Lactate (Lactic Acid) 4.5 mmol/L (0.7-2.1)
[2022-02-20] MEDS: INSULIN GLARGINE 100 UNIT/ML 3ML PEN 10 UNIT SUBCUT (21:30)
[2022-02-20] MEDS: MELATONIN 3 MG TABLET 6 MG PO (21:33)
[2022-02-20] MEDS: HEPARIN 5,000 UNIT/ML VIAL 5000 UNIT SUBCUT (21:34)
[2022-02-20 21:44] LABS: Reflexed Lactate in 2 Hours Y
[2022-02-20] MEDS: PIPERACILLIN/TAZO 3.375 GM in SODIUM CHLORIDE 0.9% 100 ML IV (23:12)
--- NOTE | 2022-02-20 23:37 | DI.CT.S_ITS ---
PROCEDURE: CT CHEST ABD PEL W CON INDICATIONS: sepsis, rising lactate despite treatment TECHNIQUE: After the administration of oral and intravenous contrast, axial sections acquired from the supraclavicular neck to the pubic symphysis. Coronal and sagittal reformats were performed. For radiation dose reduction, the following was used: automated exposure control, adjustment of mA and/or kV according to patient size. COMPARISON: [facility], CR, XR LUMBAR SPINE 2-3V, 02/20/2022, 12:55. FINDINGS: Image quality: There is mild motion artifact. CHEST: Lower Neck: No lymphadenopathy by size criteria. Thyroid: Visualized thyroid demonstrates a hypoattenuating right thyroid nodule measuring up to 1.3 cm. Axillae: No lymphadenopathy by size criteria. Chest Wall: Unremarkable. Lungs and Airways: There are bilateral clustered nodules in the left upper and lower lobes as well as the right lower and middle lobes. Extensive confluent consolidation also demonstrated in the perihilar region of the left upper and lower lobes and right lower lobe. The findings are consistent with pneumonia. The trachea and central airways are patent. Pleura: No pneumothorax. There is a small left pleural effusion and trace right effusion. Heart: Heart size is normal. No pericardial effusion. Thoracic Vessels: The aorta and pulmonary arteries are normal in size. Mediastinum and Indira: No lymphadenopathy by size criteria. Esophagus: No wall thickening. No hiatal hernia. ABDOMEN: Liver: No mass lesion. Gallbladder: Within normal limits without calcified gallstones. Biliary ducts: No biliary ductal dilatation. Pancreas: Unremarkable. Spleen: Normal in size. Adrenal Glands: No adrenal nodules. Kidneys and Ureters: No hydronephrosis. There are areas of renal cortical thinning in the left kidney compatible with sequelae of prior infection, trauma, or infarct. Stomach and Bowel: Stomach, small bowel loops, and colon are normal in caliber and wall thickness. Peritoneum: No abnormal intraperitoneal fluid. No free air. Ventral Wall: No hernia. Abdominal Nodes: No retroperitoneal or mesenteric adenopathy by size criteria. Vessels: Aorta and inferior vena cava are normal in size. PELVIS: Pelvic Organs: Unremarkable. Bladder: There is a Giraldo catheter within a partially distended urinary bladder. Pelvic Nodes: No enlarged lymph nodes. Miscellaneous: No inguinal hernias are seen. Bones: There is a mild superior endplate compression deformity of the L3 vertebral body of indeterminate acuity. Visualized osseous structures demonstrate no suspicious focal lesions. IMPRESSION: 1. Bilateral clustered pulmonary nodules with areas of bilateral confluent consolidation consistent with multifocal lobar pneumonia. 2. Right thyroid nodule measuring up to 1.3 cm. Recommend further evaluation with thyroid ultrasound when clinically feasible. 3. Mild superior endplate compression deformity of the L3 vertebral body. Dictated by: Frank Hastings M.D. on 02/21/2022 at 1:26 Approved by: Frank Hastings M.D. on 02/21/2022 at 1:36
[2022-02-21] VITALS (27 sets, daily range): BP systolic 94–175; BP diastolic 51–93; PULSE 72–86; RESP 14–18; TEMP 36–38; O2SAT 93–100
[2022-02-21 00:05] LABS: Lactate 2HR (Lactic Acid Rflx) 1.8 mmol/L (0.7-2.1)
[2022-02-21] MEDS: VANCOMYCIN 750 MG/150 ML PIGGYBACK 150 MG IV (01:03)
--- NOTE | 2022-02-21 02:37 | PC.NURSE ---
Mail Reader Note-Patient is alert, non-verbal, fidgeting with lines and tubes, but is redirectable. Not displaying pain, does rub her abdomen occasionally. SR, VSS. SpO2 87% RA, NC at 2-L to keep > 92%, no cough. Insulin and D5 1/2NS stopped at 1999 per , CBG 166. PO meds given with applesauce without difficulty. Tolerated going to CT. Vancomycin and Zosyn infused.
[2022-02-21 05:49] LABS: Alanine Aminotransferase 83 IU/L (<35); Albumin 3.1 g/dL (3.5-5.0); Albumin Globulin Ratio 0.9 (1.0-2.8); Alkaline Phosphatase 73 U/L (38-126); Aspartate Aminotransferase 158 IU/L (14-36); BUN Creatinine Ratio 29.5 (6-22); Bilirubin Total 0.5 mg/dL (0.2-1.3); Blood Urea Nitrogen 26 mg/dL (7-17); Calcium 8.2 mg/dL (8.4-10.2); Carbon Dioxide 24 mmol/L (22-32); Chloride 106 mmol/L (98-107); Estimated Glomerular Filt Rate > 60 mL/min (>60); Globulin 3.3 g/dL (1.7-4.1); Glucose 75 mg/dL (80-110); HEMOLYSIS < 15 (0-50); Magnesium 2.1 mg/dL (1.6-2.3); Potassium 4.5 mmol/L (3.4-5.1); Sodium 139 mmol/L (137-145); Total Protein 6.4 g/dL (6.3-8.2)
[2022-02-21 05:52] LABS: Hematocrit 35.4 % (36-46); Hemoglobin 11.8 g/dL (12.0-16.0); Mean Corpuscular HGB Conc 33.3 % (30-36); Mean Corpuscular Hemoglobin 31.7 PG (26-34); Mean Corpuscular Volume 95.2 fL (80-100); Platelet Count 219 X10^3/uL (150-400); Red Blood Cell Count 3.72 X10^6/uL (4.0-5.2); Red Cell Distribution Width 13.2 % (11.6-14.8); White Blood Cell Count 8.7 X10^3/uL (4.5-11.0)
[2022-02-21 06:48] LABS: Add Manual Diff / Slide Review YES
[2022-02-21 06:57] LABS: Neutrophils Absolute Manual 6177 /uL (3000-5900); Total Cells Counted 100
[2022-02-21 07:00] LABS: RBC Morphology Normal Morphology
--- NOTE | 2022-02-21 08:00 | PM.PN.1 ---
Subjective Subjective Date Patient Seen: 02/21/22 Interval history: Patient able to wean off insulin drip overnight and downgrade out of ICU. She is more awake and alert today and sitting in bed folding a towel over and over. Exam Vital Signs (past 8 hours): - 02/21/22 00:40 02/21/22 01:00 02/21/22 01:00 Temperature 96.8 F L 100.0 F H Pulse Rate 86 80 Respiratory Rate 16 Blood Pressure 120/60 Pulse Oximetry 98 97 Oxygen Delivery Method Oxygen Flow Rate 2 02/21/22 00:30 02/21/22 02:00 02/21/22 02:00 Temperature 99.7 F H Pulse Rate 72 Respiratory Rate 17 Blood Pressure 100/53 L Pulse Oximetry 99 Oxygen Delivery Method Nasal Cannula Oxygen Flow Rate 02/21/22 03:00 02/21/22 03:00 02/21/22 03:40 Temperature 99.5 F Pulse Rate 78 Respiratory Rate 16 Blood Pressure 109/59 L Pulse Oximetry 99 Oxygen Delivery Method Nasal Cannula Oxygen Flow Rate 2 02/21/22 04:00 02/21/22 04:00 02/21/22 05:00 Temperature 99.5 F Pulse Rate 74 Respiratory Rate 16 Blood Pressure 106/53 L 104/56 L Pulse Oximetry 99 Oxygen Delivery Method Oxygen Flow Rate 02/21/22 05:00 02/21/22 06:00 02/21/22 06:00 Temperature 99.1 F 99.1 F Pulse Rate 78 77 Respiratory Rate 16 16 Blood Pressure 124/60 Pulse Oximetry 99 100 Oxygen Delivery Method Oxygen Flow Rate 2 02/21/22 07:00 02/21/22 07:00 Temperature 99.1 F Pulse Rate 77 Respiratory Rate 18 Blood Pressure 120/60 Pulse Oximetry 99 Oxygen Delivery Method Oxygen Flow Rate Oxygen Delivery Method Nasal Cannula Oxygen Flow Rate 2 Narrative Exam Narrative: GEN: no acute distress, demented, responds in 1-2 words HEENT: moist mucous membranes, PERRL NECK: trachea midline, no JVD CV: regular rate and rhythm, no murmurs PULM: clear bilaterally ABD: soft, nontender, nondistended, no organomegaly EXT: warm and well perfused with no edema NEURO: awake, alert, oriented to person only, no focal deficits Objective Labs Result Diagrams: 02/21/22 04:32 02/21/22 04:32 Labs: Laboratory Results - last 24 hr 02/20/22 02/20/22 02/20/22 10:22 12:40 12:40 WBC 8.8 RBC 3.57 L Hgb 11.4 L Hct 34.5 L MCV 96.8 MCH 31.9 MCHC 33.0 RDW 13.2 Plt Count 184 Neut % (Auto) Not Reportable Lymph % (Auto) Not Reportable [place] % (Auto) Not Reportable Eos % (Auto) Not Reportable Baso % (Auto) Not Reportable Lymph # (Auto) Not Reportable [place] # (Auto) Not Reportable Baso # (Auto) Not Reportable Total Counted 100 Seg Neutrophils % 73.0 H Band Neutrophils % 15.0 H Lymphocytes % (Manual) 8.0 L Monocytes % (Manual) 4.0 Metamyelocytes % Neutrophils # (Manual) 7744 H RBC Morphology Normal morphology Sodium 130 L Potassium 4.0 Chloride 88 L Carbon Dioxide 28 BUN 29 H Creatinine 1.25 H Estimated GFR 45 L BUN/Creatinine Ratio 23.2 H Glucose 711 H* Hemoglobin A1c Lactate Calcium 8.5 Magnesium Total Bilirubin 0.4 AST 49 H ALT 39 H Alkaline Phosphatase 72 C-Reactive Protein 21.4 H Total Protein 6.8 Albumin 3.5 Globulin 3.3 Albumin/Globulin Ratio 1.1 Procalcitonin Urine Color Urine Appearance Urine pH Ur Specific [place] Urine Protein Urine Glucose (UA) Urine Ketones Urine Occult Blood Urine Nitrate Urine Bilirubin Urine Urobilinogen Ur Leukocyte Esterase Urine RBC Urine WBC Ur Squamous Epith Cells Amorphous Sediment Urine Bacteria Ur Culture Indicated? Nasal Screen MRSA (PCR) Ketones SARS-CoV-2 (PCR) Negative Influenza A (RT-PCR) Flu a positive H Influenza B (RT-PCR) Flu b negative RSV (PCR) Negative 02/20/22 02/20/22 02/20/22 12:40 12:40 12:40 WBC RBC Hgb Hct MCV MCH MCHC RDW Plt Count Neut % (Auto) Lymph % (Auto) [place] % (Auto) Eos % (Auto) Baso % (Auto) Lymph # (Auto) [place] # (Auto) Baso # (Auto) Total Counted Seg Neutrophils % Band Neutrophils % Lymphocytes % (Manual) Monocytes % (Manual) Metamyelocytes % Neutrophils # (Manual) RBC Morphology Sodium Potassium Chloride Carbon Dioxide BUN Creatinine Estimated GFR BUN/Creatinine Ratio Glucose Hemoglobin A1c 11.8 H Lactate 3.6 H Calcium Magnesium 1.5 L Total Bilirubin AST ALT Alkaline Phosphatase C-Reactive Protein Total Protein Albumin Globulin Albumin/Globulin Ratio Procalcitonin Urine Color Urine Appearance Urine pH Ur Specific [place] Urine Protein Urine Glucose (UA) Urine Ketones Urine Occult Blood Urine Nitrate Urine Bilirubin Urine Urobilinogen Ur Leukocyte Esterase Urine RBC Urine WBC Ur Squamous Epith Cells Amorphous Sediment Urine Bacteria Ur Culture Indicated? Nasal Screen MRSA (PCR) Ketones 0.09 SARS-CoV-2 (PCR) Influenza A (RT-PCR) Influenza B (RT-PCR) RSV (PCR) 02/20/22 02/20/22 02/20/22 12:40 12:50 15:17 WBC RBC Hgb Hct MCV MCH MCHC RDW Plt Count Neut % (Auto) Lymph % (Auto) [place] % (Auto) Eos % (Auto) Baso % (Auto) Lymph # (Auto) [place] # (Auto) Baso # (Auto) Total Counted Seg Neutrophils % Band Neutrophils % Lymphocytes % (Manual) Monocytes % (Manual) Metamyelocytes % Neutrophils # (Manual) RBC Morphology Sodium Potassium Chloride Carbon Dioxide BUN Creatinine Estimated GFR BUN/Creatinine Ratio Glucose Hemoglobin A1c Lactate Calcium Magnesium Total Bilirubin AST ALT Alkaline Phosphatase C-Reactive Protein Total Protein Albumin Globulin Albumin/Globulin Ratio Procalcitonin 21.1 H Urine Color Yellow Urine Appearance Sl cloudy Urine pH 6.0 Ur Specific [place] 1.010 Urine Protein 1+ H Urine Glucose (UA) 3+ H Urine Ketones Negative Urine Occult Blood 1+ H Urine Nitrate Negative Urine Bilirubin Negative Urine Urobilinogen 0.2 Ur Leukocyte Esterase Negative Urine RBC 1-5/hpf Urine WBC 1-5/hpf Ur Squamous Epith Cells 0-1 /hpf Amorphous Sediment 1+ Urine Bacteria Many (>30) H Ur Culture Indicated? Specimen cultured Nasal Screen MRSA (PCR) Negative for mrsa Ketones SARS-CoV-2 (PCR) Influenza A (RT-PCR) Influenza B (RT-PCR) RSV (PCR) 02/20/22 02/20/22 02/20/22 15:30 16:36 19:39 WBC RBC Hgb Hct MCV MCH MCHC RDW Plt Count Neut % (Auto) Lymph % (Auto) [place] % (Auto) Eos % (Auto) Baso % (Auto) Lymph # (Auto) [place] # (Auto) Baso # (Auto) Total Counted Seg Neutrophils % Band Neutrophils % Lymphocytes % (Manual) Monocytes % (Manual) Metamyelocytes % Neutrophils # (Manual) RBC Morphology Sodium 138 139 Potassium 3.0 L 3.0 L Chloride 101 102 Carbon Dioxide 23 23 BUN 25 H 22 H Creatinine 1.00 0.92 Estimated GFR 59 L > 60 BUN/Creatinine Ratio 25.0 H 23.9 H Glucose 398 H D 169 H D Hemoglobin A1c Lactate 3.0 H Calcium 7.5 L 7.6 L Magnesium Total Bilirubin AST ALT Alkaline Phosphatase C-Reactive Protein Total Protein Albumin Globulin Albumin/Globulin Ratio Procalcitonin Urine Color Urine Appearance Urine pH Ur Specific [place] Urine Protein Urine Glucose (UA) Urine Ketones Urine Occult Blood Urine Nitrate Urine Bilirubin Urine Urobilinogen Ur Leukocyte Esterase Urine RBC Urine WBC Ur Squamous Epith Cells Amorphous Sediment Urine Bacteria Ur Culture Indicated? Nasal Screen MRSA (PCR) Ketones SARS-CoV-2 (PCR) Influenza A (RT-PCR) Influenza B (RT-PCR) RSV (PCR) 02/20/22 02/20/22 02/21/22 19:39 23:40 04:32 WBC RBC Hgb Hct MCV MCH MCHC RDW Plt Count Neut % (Auto) Lymph % (Auto) [place] % (Auto) Eos % (Auto) Baso % (Auto) Lymph # (Auto) [place] # (Auto) Baso # (Auto) Total Counted Seg Neutrophils % Band Neutrophils % Lymphocytes % (Manual) Monocytes % (Manual) Metamyelocytes % Neutrophils # (Manual) RBC Morphology Sodium 139 Potassium 4.5 D Chloride 106 Carbon Dioxide 24 BUN 26 H Creatinine 0.88 Estimated GFR > 60 BUN/Creatinine Ratio 29.5 H Glucose 75 L Hemoglobin A1c Lactate 4.5 H* 1.8 Calcium 8.2 L Magnesium 2.1 Total Bilirubin 0.5 AST 158 H ALT 83 H Alkaline Phosphatase 73 C-Reactive Protein Total Protein 6.4 Albumin 3.1 L Globulin 3.3 Albumin/Globulin Ratio 0.9 L Procalcitonin Urine Color Urine Appearance Urine pH Ur Specific [place] Urine Protein Urine Glucose (UA) Urine Ketones Urine Occult Blood Urine Nitrate Urine Bilirubin Urine Urobilinogen Ur Leukocyte Esterase Urine RBC Urine WBC Ur Squamous Epith Cells Amorphous Sediment Urine Bacteria Ur Culture Indicated? Nasal Screen MRSA (PCR) Ketones SARS-CoV-2 (PCR) Influenza A (RT-PCR) Influenza B (RT-PCR) RSV (PCR) 02/21/22 04:32 WBC 8.7 RBC 3.72 L Hgb 11.8 L Hct 35.4 L MCV 95.2 MCH 31.7 MCHC 33.3 RDW 13.2 Plt Count 219 Neut % (Auto) Not Reportable Lymph % (Auto) Not Reportable [place] % (Auto) Not Reportable Eos % (Auto) Not Reportable Baso % (Auto) Not Reportable Lymph # (Auto) Not Reportable [place] # (Auto) Not Reportable Baso # (Auto) Not Reportable Total Counted 100 Seg Neutrophils % 57.0 Band Neutrophils % 14.0 H Lymphocytes % (Manual) 23.0 L Monocytes % (Manual) 3.0 Metamyelocytes % 3.0 H Neutrophils # (Manual) 6177 H RBC Morphology Normal morphology Sodium Potassium Chloride Carbon Dioxide BUN Creatinine Estimated GFR BUN/Creatinine Ratio Glucose Hemoglobin A1c Lactate Calcium Magnesium Total Bilirubin AST ALT Alkaline Phosphatase C-Reactive Protein Total Protein Albumin Globulin Albumin/Globulin Ratio Procalcitonin Urine Color Urine Appearance Urine pH Ur Specific [place] Urine Protein Urine Glucose (UA) Urine Ketones Urine Occult Blood Urine Nitrate Urine Bilirubin Urine Urobilinogen Ur Leukocyte Esterase Urine RBC Urine WBC Ur Squamous Epith Cells Amorphous Sediment Urine Bacteria Ur Culture Indicated? Nasal Screen MRSA (PCR) Ketones SARS-CoV-2 (PCR) Influenza A (RT-PCR) Influenza B (RT-PCR) RSV (PCR) PFSH Medical History Dementia Diabetes Hyponatremia Surgical History H/O enucleation of left eyeball Family History Father Diabetes mellitus Smoker Mother Diabetes mellitus Brother Diabetes mellitus Sister Heart attack Daughter Diabetes mellitus Social History household members: family Smoking Status: Never smoker alcohol intake: never Assessment & Plan Assessment & Plan narrative: # HHS in setting of poorly controlled DM2, acute and present on admission, resolved -BG 700 in ED, bicarb normal so unlikely to be DKA. With elevated Cr and lactate likely hypovolemic from osmotic diuresis. -s/p 3L NS boluses -now with a diet and back to home lantus 10u daily plus SSI -A1c 11.8%, diabetes education consulted, awaiting family member involvement as patient has dementia # concern for developing sepsis -secondary to CAP vs influenza, with end organ damage evidenced by elevated lactate, Cr and LFT's. Procal significantly elevated at 21. -broad spectrum abx initiated, will deescalate per culture data -blood cultures NG at 24 hours # CAP with influenza A positive causing hypoxemic resp failure -left infiltrate on CXR concerning for superimposed bacterial pneumonia, patient requiring 2L NC to maintain sats at 93% -Zosyn and azithro ordered -tamiflu BID for 5 days if hospital has in stock -droplet precautions # lactic acidemia, resolved -LA 3.6 on admission -downtrended with boluses to 1 # hypomagnesemia, acute vs chronic -mag 1.5 on admission -replete and monitor # MINNIE, resolved -Cr 1.25 then improved to 1 with fluids # elevated LFT's, chronic -LFTs chronically elevated back to 2020 per chart -check hepatitis panel Code status is Full code for now, patient unable to provide and DPOA unable to be contacted. COVID negative, flu positive. DVT prophylaxis with hepatin subq. Proxy is unclear. I have reviewed home meds and used all available resources to reconcile the home meds. Dispo: 2 more days likely then home. Time Spent With Patient Critical Care time: I spent a total of [] minutes of critical care time on this patient's care today; this time is exclusive of procedural time.
[2022-02-21] MEDS: PIPERACILLIN/TAZO 3.375 GM in SODIUM CHLORIDE 0.9% 100 ML IV ×2 (12:37→23:42)
[2022-02-21] MEDS: INSULIN GLARGINE 100 UNIT/ML 3ML PEN 10 UNIT SUBCUT (12:40)
[2022-02-21] MEDS: ACETAMINOPHEN 325 MG TABLET 650 MG PO (13:20)
[2022-02-21] MEDS: ASPIRIN EC 81 MG TABLET PO (13:22)
[2022-02-21] MEDS: OSELTAMIVIR 75 MG CAPSULE PO ×2 (13:22→20:42)
[2022-02-21] MEDS: AZITHROMYCIN 250 MG TABLET 500 MG PO (13:23)
[2022-02-21] MEDS: HEPARIN 5,000 UNIT/ML VIAL 5000 UNIT SUBCUT ×2 (13:23→20:42)
--- NOTE | 2022-02-21 13:31 | PT.IIE ---
Current Diagnoses Type 2 diabetes mellitus with hyperosmolarity without nonketotic hyperglycemic-hyperosmolar coma ([facility]) (02/20/22) Type 2 diabetes mellitus without complications (02/20/22) Hyperglycemia, unspecified (02/20/22) Surgical History (Last Reviewed 02/20/22 @ 13:06 by FLORINDA Gambino) H/O enucleation of left eyeball Medical History (Last Reviewed 02/20/22 @ 13:06 by FLORINDA Gambino) Dementia Diabetes Hyponatremia Physical Therapy Inpatient Evaluation/Re-Eval M1 PT/OT-IP Prior Functional Status Start: 02/21/22 13:09 Freq: Status: Active Protocol: Document 02/21/22 13:10 BC (Rec: 02/21/22 13:31 [id number]) Medical Review Prior Functional Status Medical History Reviewed Yes Communication speaks mauritian but due to dementia has not been successful with video financial accountant. Mobility and Gait unknown; no family present and Pt unable to report. Based on chart review she was ambulatory as recently documented in July 2021. Activities of Daily Living and IADL's Needs assist Prior Functional Level (Other details) She lives with her niece who is her primary caregiver. She needs assist due to progressed dementia Social History Household Members family Number of Stairs To Enter/Railing? unknown Additional Social History Comment Any further mobility history is unknown due to Pt's dementia, no family present at time of PT consult and no prior PT notes from previous hospitalizations. M2 PT-IP Current Condition Start: 02/21/22 13:09 Freq: Status: Active Protocol: Document 02/21/22 13:10 BC (Rec: 02/21/22 13:31 [id number]) Physical Therapy Current Condition Current Condition Evaluation Date 02/21/22 Treatment Diagnosis Flu; difficulty with ambulation Onset Date 02/20/22 M3 PT-IP Subjective Start: 02/21/22 13:09 Freq: Status: Active Protocol: Document 02/21/22 13:10 BC (Rec: 02/21/22 13:31 [id number]) Subjective Physical Therapy Visit Type Type Initial Evaluation Visit Start Time 10:55 Visit Stop Time 11:20 Total Visit Minutes 25 Physical Therapy Visit Comments Patient Comments Pt not verbal throughout time with PT. She smiles frequently . She follows hand gesture cues for mobility. Patient Goals NA Therapy Pain Assessment Pain Present Pain Present Unable to Respond FLACC Pain Scale Face No particular expression Legs Normal position; relaxed Activity Squirming,shifting Cry No cry (awake or asleep) Consolability Reassurable with touch FLACC Total 2 M4 PT-IP Mobility and Gait Start: 02/21/22 13:09 Freq: Status: Active Protocol: Document 02/21/22 13:10 BC (Rec: 02/21/22 13:31 BC [id number]) PT-Bed Mobility Assessment Rolling Type of Rolling Log Rolling,Roll to Right,Roll to Left Level of Assist Contact Guard Assistance Supine to Sit Supine to Sit Minimal Assistance Sit to Supine Sit to Supine Minimal Assistance Scooting Scooting to Edge of Bed Minimal Assistance Scooting Up and Down in Bed Minimal Assistance PT-Transfer Assessment Sit to and From Stand Sit to and from Stand Maximum Assistance Equipment Transfer Assistive Device Gait Belt,Front Wheeled Walker Comments Mobility Comments STS x3 reps from EOB. Each sit to stand yielded unsafe technique. First time she did not place RLE down on floor despite visual and tactile cues. Second reps resulted in LLE knee buckling that required max A of PT to prevent falling. She was not stable in standing to consider attempting dynamic mobility at this time. Gait Assessment Comments Gait Comments unable Stair Climbing Assessment Comments Stair Climbing Comments unable PT-Balance Assessment Sitting Balance and Reactions Static Sitting Balance Ability Fair Dynamic Sitting Balance Ability Fair Standing Balance and Reactions Static Standing Balance Ability Poor Dynamic Standing Balance Ability Poor Device Used FWW and gait belt Comments Other Balance Tests/Deviations/Treatment In sitting, Pt losing balance : posteriorly needing visual cues to regain midline orientation. In standing, LLE buckling repetitively with PT providing max assist at knee to prevent fall. M5 PT-IP Objective Assessments Start: 02/21/22 13:09 Freq: Status: Active Protocol: Document 02/21/22 13:10 BC (Rec: 02/21/22 13:31 BC [id number]) Orientation Orientation/Cognition Level of Alertness Confusional State Comments Pt is not verbalizing to PT. Per nsng and chart review, financial accountant yields no beneficial communication either. No family present. Pt is smiling and following visual/tactile cues. Gross Range of Motion Upper Extremity ROM Assessment Within Functional Limits Lower Extremity ROM Assessment Within Functional Limits Strength Upper Extremity Strength Assessment Within Functional Limits Lower Extremity Strength Assessment Bilaterally Impaired Hip 3+/5 Knee 3/5 Ankle 3/5 Comments Strength Comments MMT is challenging due to dementia/language barrier. She is demonstrating weak BLEs though inconsistent. M6 PT-IP Treatment Start: 02/21/22 13:09 Freq: Status: Active Protocol: Document 02/21/22 13:10 BC (Rec: 02/21/22 13:31 [id number]) Physical Therapy Treatment Other Treatments Other Treatment Performed Pt not able to accept education at this time. M7 PT-IP Assessment and Plan Start: 02/21/22 13:09 Freq: Status: Active Protocol: Document 02/21/22 13:10 BC (Rec: 02/21/22 13:31 [id number]) PT Summary Assessment and Plan Potential Rehabilitation Potential Fair Status of Condition at Evaluation Evolving Summary Impairments Strength,Balance,Coordination, Cognition,Bed Mobility, Transfers,Gait,Activity Tolerance Progress Towards Goals Slow Progress due to Medical Issues,Slow Progress due to Activity Tolerance Assessment Summary Pt admitted from home with hyperglycemic hyperosmolar syndrome and influenza A. She speaks Swazi but due to dementia is not able to follow video financial accountant functionally. She did follow visual and tactile cues and was smiling throughout most of our interaction. Her PLOF status is unclear other than ED reports in July of 2021 that she was ambulatory in her home where she lives with her niece. Pt has multiple items in bed per nsng to provide objects to fidget with. This is helpful as Pt continually grabs at her gown or medical equipment. Her current mobility is not consistent to ascertain. She needs intermittent min A sitting EOB to keep balance. In standing she initially stands on LLE only, hovering RLE up in air and maintained her balance. Second two tries of standing where I was able to cue her to keep RLE on the ground, her LLE then repetitively buckled needing max A to keep balance. I did not attempt gait or dynamic standing at this time due to safety. Assisted back to bed with BP at 143/65 and HR 81 bpm. Discharge recommendations are pending to see what progress she can make and what her PLOF was. Doubtful SNF is appropriate given her level of dementia. Suspect that if home is not an appropriate discharge she may need LTC. Goals Bed Mobility Goal Standby Assistance Transfer Goal Standby Assistance Gait Goal Standby Assistance,Contact Guard Assistance Gait Distance 75 Days to Meet Goals 5 Frequency of Treatment Frequency Of Treatment Once a Day Treatment Plan Physical Therapy Treatment Plan Bed Mobility Training,Transfer Training,Gait Training, Therapeutic Exercise,Balance Retraining,Discharge Planning, Neuromuscular Re-ed, Coordination Retraining Precautions Other Precautions dementia Recommendations To Nursing Amount of Assist Needed 3 or More Person Assist, Mechanical Lift Discharge Recommendations Other Discharge Recommendations Home vs terminal manager care placement; needs further PT assessment
--- NOTE | 2022-02-21 14:37 | CM.DANOTE ---
DCP Assessment: Patient is a 72 yr old female admitted for UTI. Patients has severe dementia and lives with her daughter Khushboo. Cm attempted to meet with the patient however was not able to communicate with CM and wasn't clear enough to follow CM conversation even with physical therapy coordinator services. CM called patients daughter Khushboo to get baseline information and she is listed as patients emergency contact. Patients daughter Khushboo is her DPOA according to Jacquelinechristian. The patient lives with her and she provides all patients care. She helps the patient with all ADLS. CM asked if the family would like the patient to have SNF referral started and was told absolutely not. Patients daughter stated she is taking her home when she is ready and her mother will not go to a home ever. CM asked if she would like services she stated she would with [facility] . CM got [facility] and sent it to [facility] and called Deya with [facility] and LVM. Plan: Home with [facility] , F[facility] completed. Yesica Doyle RNgrants manager Discharge Planning/Care Management Discharge Assessment Start: 02/21/22 14:33 Freq: Status: Active Protocol: Document 02/21/22 14:33 HS (Rec: 02/21/22 14:37 HS [id number]) Discharge Planning Assessment Assigned Linux Devops Engineer Yesica Doyle RNbusiness office coordinator DPOA/Assigned Designee Name Khushboo Alfonso Contact Information [phone] Advance Directives? No Advance Directives on File No History Provided By Family Member,Medical Record Has Patient been admitted in last 30 No days? Prior Living Arrangements House Comment Patient lives in [place] with her daughter Khushboo who cares for her. Household Members family Comment Patient lives with her daughters Khushboo and Toney Type of transporation used prior to Relies on Others admit Independent with ADL's No Is patient alert and oriented? No: Has severe Dementia at baseline Needs Assistance With Grooming,Meal Prep,Toileting, Managing Medications,Home Chores / Shopping Caregiver for Another No DME Already Rented / Owned FWW / Walker,Cane Patient/Family Preference Home with Home Health Comment Patients daughter asked for HH services for her mother at [facility]. Barriers to Discharge No Comment Has supportive family Discharge Plan Home with Home Health Transportation Arrangement Family bedside and agreeable to provide transport Referrals Initiated Home Health Additional Comment Home health was asked for If patient plan is home with home health Yes : Has signed face to face form been completed? Medicare Choice List Provided Yes Medicare choice list reviewed on Zawatt electronic tablet with Whiteboard Updated in Patient Room with Yes name and ext. # of Linux Devops Engineer Review Status In Process Next Review Type Continued Stay Review
[2022-02-21] MEDS: VANCOMYCIN 500 MG in SODIUM CHLORIDE 0.9% 100 ML 100 MG IV (16:00)
--- NOTE | 2022-02-21 16:04 | DIET.CONS2 ---
Dietary Inpatient Consultation Note Admission Date: 02/20/2022 14:58 Pt on small consistent carb diet as of lunch today, BGs low to normal despite A1c 11.8. Wood Turner to visit with patient and daughter (emergency contact) Friday morning for education session. Diet: 02/21/22 Lunch Carbohydrate Consistent Diet Diet Modifications: Carbohydrate level: Small (2 CHO) Bedtime snack: Yes Electronically Signed by: Lissa Butcher 02/21/22 16:04 Clinical Dietitian [address] [address]
[2022-02-21] MEDS: INSULIN LISPRO 100 UNIT/ML 3ML VIAL SUBCUT (20:42)
[2022-02-21] MEDS: MELATONIN 3 MG TABLET 6 MG PO (23:38)
[2022-02-22] VITALS: BP 104/53; PULSE 76; TEMP 36.9; O2SAT 93
[2022-02-22 01:00] VITALS: PULSE 73; TEMP 37; O2SAT 97
[2022-02-22] MEDS: VANCOMYCIN 500 MG in SODIUM CHLORIDE 0.9% 100 ML 100 MG IV (03:11)
[2022-02-22 04:00] VITALS: BP 148/61; PULSE 77; RESP 17; TEMP 37; O2SAT 97
[2022-02-22 05:25] LABS: Alanine Aminotransferase 94 IU/L (<35); Albumin 2.7 g/dL (3.5-5.0); Albumin Globulin Ratio 0.9 (1.0-2.8); Alkaline Phosphatase 114 U/L (38-126); Aspartate Aminotransferase 135 IU/L (14-36); BUN Creatinine Ratio 38.2 (6-22); Bilirubin Total 0.3 mg/dL (0.2-1.3); Blood Urea Nitrogen 39 mg/dL (7-17); Calcium 8.3 mg/dL (8.4-10.2); Carbon Dioxide 22 mmol/L (22-32); Chloride 102 mmol/L (98-107); Estimated Glomerular Filt Rate 58 mL/min (>60); Globulin 3.1 g/dL (1.7-4.1); Glucose 277 mg/dL (80-110); HEMOLYSIS < 15 (0-50); Magnesium 1.9 mg/dL (1.6-2.3); Potassium 4.1 mmol/L (3.4-5.1); Sodium 132 mmol/L (137-145); Total Protein 5.8 g/dL (6.3-8.2)
[2022-02-22 05:47] LABS: Hematocrit 29.3 % (36-46); Hemoglobin 10.1 g/dL (12.0-16.0); Mean Corpuscular HGB Conc 34.4 % (30-36); Mean Corpuscular Hemoglobin 32.2 PG (26-34); Mean Corpuscular Volume 93.4 fL (80-100); Platelet Count 205 X10^3/uL (150-400); Red Blood Cell Count 3.13 X10^6/uL (4.0-5.2); Red Cell Distribution Width 13.5 % (11.6-14.8); White Blood Cell Count 10.5 X10^3/uL (4.5-11.0)
[2022-02-22 05:48] LABS: Add Manual Diff / Slide Review YES
[2022-02-22] MEDS: PIPERACILLIN/TAZO 3.375 GM in SODIUM CHLORIDE 0.9% 100 ML IV (06:55)
[2022-02-22 07:07] LABS: Neutrophils Absolute Manual 9660 /uL (3000-5900); Total Cells Counted 100
[2022-02-22 07:16] LABS: Burr Cells 1+
--- NOTE | 2022-02-22 07:42 | P.PN_ITS ---
Exam Vital Signs (past 8 hours): - 02/22/22 00:00 02/22/22 00:00 02/22/22 01:00 Temperature 98.4 F 98.6 F Pulse Rate 76 73 Respiratory Rate Blood Pressure 104/53 L Pulse Oximetry 93 97 Oxygen Flow Rate 0 0 02/22/22 04:00 Temperature 98.6 F Pulse Rate 77 Respiratory Rate 17 Blood Pressure 148/61 H Pulse Oximetry 97 Oxygen Flow Rate 0 Oxygen Delivery Method Room Air Oxygen Flow Rate 0 Narrative Exam Narrative: GEN: no acute distress, demented, responds in 1-2 words HEENT: moist mucous membranes, PERRL NECK: trachea midline, no JVD CV: regular rate and rhythm, no murmurs PULM: clear bilaterally ABD: soft, nontender, nondistended, no organomegaly EXT: warm and well perfused with no edema NEURO: awake, alert, oriented to person only, no focal deficits Objective Labs Result Diagrams: 02/22/22 04:20 02/22/22 04:20 Labs: Laboratory Results - last 24 hr 02/22/22 02/22/22 04:20 04:20 WBC 10.5 RBC 3.13 L Hgb 10.1 L Hct 29.3 L MCV 93.4 MCH 32.2 MCHC 34.4 RDW 13.5 Plt Count 205 Neut % (Auto) Not Reportable Lymph % (Auto) Not Reportable [place] % (Auto) Not Reportable Eos % (Auto) Not Reportable Baso % (Auto) Not Reportable Lymph # (Auto) Not Reportable [place] # (Auto) Not Reportable Baso # (Auto) Not Reportable Total Counted 100 Seg Neutrophils % 80.0 H Band Neutrophils % 12.0 H Lymphocytes % (Manual) 3.0 L Atypical Lymphs % 1.0 H Monocytes % (Manual) 3.0 Metamyelocytes % 1.0 H Neutrophils # (Manual) 9660 H RBC Morphology Not Reportable [place] Cells 1+ H Sodium 132 L Potassium 4.1 Chloride 102 Carbon Dioxide 22 BUN 39 H Creatinine 1.02 Estimated GFR 58 L BUN/Creatinine Ratio 38.2 H Glucose 277 H D Calcium 8.3 L Magnesium 1.9 Total Bilirubin 0.3 AST 135 H ALT 94 H Alkaline Phosphatase 114 Total Protein 5.8 L Albumin 2.7 L Globulin 3.1 Albumin/Globulin Ratio 0.9 L PFSH Medical History Dementia Diabetes Hyponatremia Surgical History H/O enucleation of left eyeball Family History Father Diabetes mellitus Smoker Mother Diabetes mellitus Brother Diabetes mellitus Sister Heart attack Daughter Diabetes mellitus Social History household members: family Smoking Status: Never smoker alcohol intake: never Assessment & Plan Assessment & Plan narrative: # HHS in setting of poorly controlled DM2, acute and present on admission, resolved -BG 700 in ED, bicarb normal so unlikely to be DKA. With elevated Cr and lactate likely hypovolemic from osmotic diuresis. -s/p 3L NS boluses -now with a diet and back to home lantus 10u daily plus SSI -A1c 11.8%, diabetes education consulted, awaiting family member involvement as patient has dementia # concern for developing sepsis -secondary to CAP vs influenza, with end organ damage evidenced by elevated lactate, Cr and LFT's. Procal significantly elevated at 21. -broad spectrum abx initiated, will deescalate per culture data -blood cultures NG at 24 hours # CAP with influenza A positive causing hypoxemic resp failure -left infiltrate on CXR concerning for superimposed bacterial pneumonia, patient requiring 2L NC to maintain sats at 93% -Zosyn and azithro ordered -tamiflu BID for 5 days if hospital has in stock -droplet precautions # lactic acidemia, resolved -LA 3.6 on admission -downtrended with boluses to 1 # hypomagnesemia, acute vs chronic -mag 1.5 on admission -replete and monitor # MINNIE, resolved -Cr 1.25 then improved to 1 with fluids # elevated LFT's, chronic -LFTs chronically elevated back to 2020 per chart -check hepatitis panel Code status is Full code for now, patient unable to provide and DPOA unable to be contacted. COVID negative, flu positive. DVT prophylaxis with hepatin subq. Proxy is unclear. I have reviewed home meds and used all available resources to reconcile the home meds. Dispo: 2 more days likely then home. Time Spent With Patient Critical Care time: I spent a total of [] minutes of critical care time on this patient's care today; this time is exclusive of procedural time.
[2022-02-22 08:00] VITALS: BP 158/71; PULSE 73; RESP 18; TEMP 36.9; O2SAT 97
[2022-02-22] MEDS: INSULIN LISPRO 100 UNIT/ML 3ML VIAL SUBCUT ×2 (08:39→12:11)
[2022-02-22] MEDS: INSULIN GLARGINE 100 UNIT/ML 3ML PEN 10 UNIT SUBCUT (08:40)
[2022-02-22] MEDS: OSELTAMIVIR 75 MG CAPSULE PO (09:20)
[2022-02-22] MEDS: ASPIRIN EC 81 MG TABLET PO (09:20)
[2022-02-22] MEDS: HEPARIN 5,000 UNIT/ML VIAL 5000 UNIT SUBCUT (09:21)
[2022-02-22] MEDS: AZITHROMYCIN 250 MG TABLET 500 MG PO (09:21)
--- NOTE | 2022-02-22 10:50 | P.DS_ITS ---
History of Present Illness History of Present Illness Date Patient Seen: 02/22/22 Chief complaint: fever/congestion/cold/weak/ T-1 Narrative: Felicitas Smalls is a 72yo Marshellese speaking F with PMH of left eye enucleation, recurrent UTI, dementia, DM2, HTN, and HLD who presents to the ED with concern for fevers, congestion, fatigue, and concern for UTI due to fowl-smelling urine for 2 days. History is taken from the chart as patient does not speak croatian. Per her niece who helps care for her, she has significant dementia. It is unclear who is the patient's DPOA but the niece is not according to her. Patient found in the ED to have BG of 700, lactate of 3.6, mag 1.5, procal 21, CRP 21, A1c 11.8% and be positive for flu. Unclear if she got her flu vaccine this winter. CXR had left lung infiltrate concerning for pneumonia. UA had many bacteria but no pyuria. At the bedside patient responds to voice and says her name is Felicitas. When asked her nieces name she says iesha mata. She is on 2L NC. Discharge Providers Provider Date of admission: 02/20/22 14:58 Discharge Date: 02/22/22 Primary care physician: Doctor Dave MD Consults: 02/20/22 18:06 Consult to Dietitian, Adult Routine Comment: Reason For Exam: A1c 11.8% 02/20/22 18:07 Consult to Physical Therapy Evaluate & Treat Comment: Physician Instructions: Evaluate and Treat Discharge provider: Christian Zaragoza DO Summary Hospital Course Discharge Diagnosis: # HHS in setting of poorly controlled DM2, acute and present on admission, resolved -BG 700 in ED, bicarb normal so unlikely to be DKA. With elevated Cr and lactate likely hypovolemic from osmotic diuresis. -s/p 3L NS boluses -now with a diet and back to home lantus 10u daily plus SSI -A1c 11.8%, diabetes education consulted # concern for developing sepsis, improving -secondary to CAP vs influenza, with end organ damage evidenced by elevated [place], Cr and LFT's. Procal significantly elevated at 21. -broad spectrum abx initiated, will deescalate per culture data -blood cultures NG at 24 hours # CAP with influenza A positive causing hypoxemic resp failure, improved -left infiltrate on CXR concerning for superimposed bacterial pneumonia, patient requiring 2L NC to maintain sats at 93% -Zosyn and azithro ordered initially, discharged on po cefdinir and doxy to complete 7 days -tamiflu ordered and discontinued on discharge as patient off O2 -droplet precautions # lactic acidemia, resolved -LA 3.6 on admission -downtrended with boluses to 1 # hypomagnesemia, acute vs chronic -mag 1.5 on admission -replete and monitor # MINNIE, resolved -Cr 1.25 then improved to 1 with fluids # elevated LFT's, chronic -LFTs chronically elevated back to 2020 per chart -check hepatitis panel, still pending on dc Hospital Course: Admitted for left sided pneumonia, flu positive and BG of 700. Started on IV abx, tamiflu and insulin drip with resolution in the BG quickly then changed to her home lantus. Able to wean off O2 as well so patient discharged home with HH on po abx to finish 5 day course. Tamiflu stopped on dc. Diabetes education met with patient's family to discuss ongoing changes which can be made due to her A1c of almost 12%. Time Spent with Patient Time spent: Greater than 30 minutes Exam Vital Signs (past 8 hours): - 02/22/22 04:00 02/22/22 08:00 Temperature 98.6 F 98.4 F Pulse Rate 77 73 Respiratory Rate 17 18 Blood Pressure 148/61 H 158/71 H Pulse Oximetry 97 97 Oxygen Flow Rate 0 0 Oxygen Delivery Method Room Air Oxygen Flow Rate 0 Narrative Exam Narrative: GEN: no acute distress, demented, responds in 1-2 words HEENT: moist mucous membranes, PERRL NECK: trachea midline, no JVD CV: regular rate and rhythm, no murmurs PULM: clear bilaterally ABD: soft, nontender, nondistended, no organomegaly EXT: warm and well perfused with no edema NEURO: awake, alert, oriented to person only, no focal deficits Objective Labs Result Diagrams: 02/22/22 04:20 02/22/22 04:20 Labs: Laboratory Results - last 24 hr 02/22/22 02/22/22 04:20 04:20 WBC 10.5 RBC 3.13 L Hgb 10.1 L Hct 29.3 L MCV 93.4 MCH 32.2 MCHC 34.4 RDW 13.5 Plt Count 205 Neut % (Auto) Not Reportable Lymph % (Auto) Not Reportable [place] % (Auto) Not Reportable Eos % (Auto) Not Reportable Baso % (Auto) Not Reportable Lymph # (Auto) Not Reportable [place] # (Auto) Not Reportable Baso # (Auto) Not Reportable Total Counted 100 Seg Neutrophils % 80.0 H Band Neutrophils % 12.0 H Lymphocytes % (Manual) 3.0 L Atypical Lymphs % 1.0 H Monocytes % (Manual) 3.0 Metamyelocytes % 1.0 H Neutrophils # (Manual) 9660 H RBC Morphology Not Reportable [place] Cells 1+ H Sodium 132 L Potassium 4.1 Chloride 102 Carbon Dioxide 22 BUN 39 H Creatinine 1.02 Estimated GFR 58 L BUN/Creatinine Ratio 38.2 H Glucose 277 H D Calcium 8.3 L Magnesium 1.9 Total Bilirubin 0.3 AST 135 H ALT 94 H Alkaline Phosphatase 114 Total Protein 5.8 L Albumin 2.7 L Globulin 3.1 Albumin/Globulin Ratio 0.9 L PFSH Medical History Dementia Diabetes Hyponatremia Surgical History H/O enucleation of left eyeball Family History Father Diabetes mellitus Smoker Mother Diabetes mellitus Brother Diabetes mellitus Sister Heart attack Daughter Diabetes mellitus Social History household members: family Smoking Status: Never smoker alcohol intake: never Discharge Plan Discharge Plan Patient Disposition: Home Health Service Discharge orders & Medications Prescriptions: New cefdinir 300 mg capsule 300 mg PO BID 3 Days Qty: 6 0RF doxycycline hyclate 100 mg tablet 100 mg PO BID 3 Days Qty: 6 0RF Continued aspirin [Adult Low Dose Aspirin] 81 mg Tablet,Delayed Release (Dr/Ec) 81 mg PO QAM metformin 500 mg Tablet 500 mg BID insulin glargine [Lantus U-100 Insulin] 100 unit/mL Solution 6 unit SUBCUT BID Label Comments: 6 units in the AM and PM multivitamin Tablet 1 tab PO QAM simvastatin 20 mg Tablet 20 mg PO BEDTIME lisinopril 10 mg Tablet 10 mg PO QAM Discontinued amoxicillin-pot clavulanate [Augmentin] 875-125 mg Tablet 1 tab PO BID Qty: 7 0RF Follow up/Referrals: Miscellaneous,Doctor, MD [Primary Care Provider] - Visit Report/Discharge Packet Stand Alone Forms: Patient Portal/API, Stroke Signs & Symptoms Discharge Data Primary Care Provider: DaveDoctor
--- NOTE | 2022-02-22 11:14 | DIET.CONS ---
Dietary Consultation Note Admission Date: 02/20/2022 14:58 Assessment: 72yo Jose Luis speaking F with PMH of dementia. RD/CDCES tried to stop by pt room to discuss DM care after discharge with family, but they are not currently here. Called daughter, Khushboo, and left a voice message to call back if she would like to discuss how diabetes education can help support Felicitas's diabetes care going forward. Some elevated BG today in 200s, but overall much improved since admission BG >700mg/dl. Ht: 144.78 cm Wt: 39 kg BMI: 20.5 Last BM: () MNA: Enrique Score: 22 Diet: 02/21/22 Lunch Carbohydrate Consistent Diet Diet Modifications: Carbohydrate level: Small (2 CHO) Bedtime snack: Yes Nutrition Percent Meal Consumed 50% 02/22/22 09:37 Percent Meal Consumed 75% 02/21/22 19:20 Percent Meal Consumed 100% 02/21/22 18:00 Labs: RBC 3.13 X10^6/uL (4.0-5.2) L 02/22/22 04:20 Hgb 10.1 g/dL (12.0-16.0) L 02/22/22 04:20 Hct 29.3 % (36-46) L 02/22/22 04:20 Creatinine 1.02 mg/dL (0.52-1.04) 02/22/22 04:20 Hemoglobin A1c 11.8 % (4.0-6.0) H 02/20/22 12:40 Lactate 1.8 mmol/L (0.7-2.1) 02/20/22 23:40 Nutrition Diagnosis: Altered nutrition related lab value r/t potentially lifestyle resulting in hyperglycemia aeb HgA1c of 11.8% with admission BG of 711mg/dl and much improved BG since admission. Interventions: Tried calling family EER: CCD diet 30g per meal Monitoring/Evaluations: will try to f/u with family again this afternoon Electronically Signed by: Deya Malone 02/22/22 11:14 Clinical Dietitian [address] [address]
[2022-02-22 11:43] VITALS: BP 133/65; PULSE 72; RESP 16; O2SAT 99
[2022-02-22 11:51] VITALS: TEMP 36.8
--- NOTE | 2022-02-22 15:20 | PT.IPTN ---
Current Diagnoses Type 2 diabetes mellitus with hyperosmolarity without nonketotic hyperglycemic-hyperosmolar coma ([facility]) (02/20/22) Type 2 diabetes mellitus without complications (02/20/22) Hyperglycemia, unspecified (02/20/22) Physical Therapy Treatment Note M2 PT-IP Current Condition Start: 02/21/22 13:09 Freq: Status: Active Protocol: Document 02/21/22 13:10 BC (Rec: 02/21/22 13:31 BC [id number]) Physical Therapy Current Condition Current Condition Evaluation Date 02/21/22 Treatment Diagnosis Flu; difficulty with ambulation Onset Date 02/20/22 M3 PT-IP Subjective Start: 02/21/22 13:09 Freq: Status: Active Protocol: Document 02/22/22 15:20 AB (Rec: 02/22/22 16:55 AB [email or web address]) Subjective Physical Therapy Visit Type Type Treatment Note Visit Start Time 15:20 Visit Stop Time 15:40 Total Visit Minutes 20 Number of DISHWASHER PREPARER Visits 0 M4 PT-IP Mobility and Gait Start: 02/21/22 13:09 Freq: Status: Active Protocol: Document 02/22/22 15:20 AB (Rec: 02/22/22 16:55 AB [id number]) PT-Bed Mobility Assessment Supine to Sit Supine to Sit Minimal Assistance,Moderate Assistance PT-Transfer Assessment Sit to and From Stand Sit to and from Stand Maximum Assistance,2 Person Assistance,Use of Upper Extremities Equipment Transfer Assistive Device Gait Belt,Front Wheeled Walker Orthotic/Prosthetic Devices or Brace: No Transfers Transfer Destination Chair Transfer Technique Stand Step Pivot Transfer Ability Level of Assist Maximum Assistance,2 Person Assistance,Use of Upper Extremities Comments Mobility Comments pt with confusion due to dx dementia. completed supine to sit min to mod A and max cues . able to sit on EOB CGA. completed sit to stand max A x 2 and max cues and step transfer to chair max Ax 2 and max cues using FWW. presents with posterior trunk leaning and slight L knee buckling. positioned pt on the chair. call light and table placed within reach. nurse stated that pt is discharged and will be going home with her daughter. M5 PT-IP Objective Assessments Start: 02/21/22 13:09 Freq: Status: Active Protocol: Document 02/21/22 13:10 BC (Rec: 02/21/22 13:31 BC [id number]) Orientation Orientation/Cognition Level of Alertness Confusional State Comments Pt is not verbalizing to PT. Per nsng and chart review, trial consultant yields no beneficial communication either. No family present. Pt is smiling and following visual/tactile cues. Gross Range of Motion Upper Extremity ROM Assessment Within Functional Limits Lower Extremity ROM Assessment Within Functional Limits Strength Upper Extremity Strength Assessment Within Functional Limits Lower Extremity Strength Assessment Bilaterally Impaired Hip 3+/5 Knee 3/5 Ankle 3/5 Comments Strength Comments MMT is challenging due to dementia/language barrier. She is demonstrating weak BLEs though inconsistent. M6 PT-IP Treatment Start: 02/21/22 13:09 Freq: Status: Active Protocol: Document 02/22/22 15:20 AB (Rec: 02/22/22 16:55 AB [email or web address]) Physical Therapy Treatment Education Education Provided Safety M7 PT-IP Assessment and Plan Start: 02/21/22 13:09 Freq: Status: Active Protocol: Document 02/22/22 15:20 AB (Rec: 02/22/22 16:55 AB [email or web address]) PT Summary Assessment and Plan Potential Rehabilitation Potential Fair Summary Impairments Pain,ROM,Strength,Balance, Coordination,Sensation,Tone, Cognition,Bed Mobility, Transfers,Gait,Activity Tolerance Assessment Summary pt requiring max A x 2 for transfers using FWW and max cues for all tasks. Per nurse , pt's mobility is at baseline and that family will take pt home and is discharged today. Goals Bed Mobility Goal Standby Assistance Transfer Goal Standby Assistance Gait Goal Standby Assistance,Contact Guard Assistance Gait Distance 75 Days to Meet Goals 5 Frequency of Treatment Frequency Of Treatment Once a Day Treatment Plan Physical Therapy Treatment Plan Bed Mobility Training,Transfer Training,Gait Training, Therapeutic Exercise,Balance Retraining,Discharge Planning, Neuromuscular Re-ed, Coordination Retraining Recommendations To Nursing Amount of Assist Needed 2 Person Assist Discharge Recommendations PT Discharge Recommendations Home vs SNF
--- NOTE | 2022-02-22 17:12 | DIET.CONS ---
Dietary Consultation Note Admission Date: 02/20/2022 14:58 Assessment: Met with Khushboo (daughter) and Felicitas prior to discharge. Khushboo tells me she cares for 3 older adult family members with her sister. States her mother was taken off insulin in February of 2021. Was only taking Metfomrin 500mg BID. Reports her Dm care is managed by Dr. Islas in [place] at [facility]. States they had been checking BG at home in the morning, often 200s mg/dl. Has a f/u with Dr. Islas in May. Encouraged a sooner follow-up to help manage BG. Khushboo expresses some concern for nighttime eating. Khushboo works at night and her sister helps manage Felicitas's care at that time. Worries she eats through the night and does not sleep much. Diet recall: B: Veggies and eggs sn: nutragrain bar L: veggie with meat soup sn: hot tea with 4-5 crackers D: 1c oatmeal with banana or cranberries, and 1TBS quinoa OR 1/3-1/2c quinoa/rice with salmon and veggies sn: 10-12oz warm apple juice with grapes Beverages: water, juice, herbal tea with sm amt honey Ht: 144.78 cm Wt: 39 kg BMI: 20.5 Last BM: () MNA: Enrique Score: 22 Diet: 02/21/22 Lunch Carbohydrate Consistent Diet Diet Modifications: Carbohydrate level: Small (2 CHO) Bedtime snack: Yes Nutrition Percent Meal Consumed 25% 02/22/22 13:50 Percent Meal Consumed 50% 02/22/22 09:37 Percent Meal Consumed 75% 02/21/22 19:20 Percent Meal Consumed 100% 02/21/22 18:00 Labs: RBC 3.13 X10^6/uL (4.0-5.2) L 02/22/22 04:20 Hgb 10.1 g/dL (12.0-16.0) L 02/22/22 04:20 Hct 29.3 % (36-46) L 02/22/22 04:20 Creatinine 1.02 mg/dL (0.52-1.04) 02/22/22 04:20 Hemoglobin A1c 11.8 % (4.0-6.0) H 02/20/22 12:40 Lactate 1.8 mmol/L (0.7-2.1) 02/20/22 23:40 Nutrition Diagnosis: Altered nutrition related lab value r/t likely need for insulin again and excessive CHO intake resulting in hyperglycemia aeb HgA1c of 11.8% with admission BG of 711mg/dl and much improved BG since admission with managed CHO intake and insulin. Interventions: Provided MNT for Felicitas and Khushboo 1. Avoid juice 2. For oats add PB and cut banana portion in half 3. Choose higher pro bar for am snack 3. pair crackers with cheese for snack 4. Call provider to discuss medication needs 5. RD/CDCES to contact provider for referral to OP DSME EER: CCD diet 30g per meal Monitoring/Evaluations: Rec OP follow-up Electronically Signed by: Deya Malone 02/22/22 17:12 Clinical Dietitian [address] [address]
[2022-02-23 04:25] LABS: HBsAg Screen Negative (Negative); Hepatitis A Antibody IgM Negative (Negative); Hepatitis B Core Antibody IgM Negative (Negative); Hepatitis C Antibody 0.1 s/co ratio (0.0-0.9)
== END 2022-02-22 17:00 | disposition home health service (06) | DRG 871 ==
LOC: ED 14:39 → ICU 14:59
PROVIDERS: Emergency Medicine; Admitting Provider Student in an Organized Health Care Education/Training Program; Emergency Provider Nurse Practitioner Critical Care Medicine; Referring Provider Nurse Practitioner Critical Care Medicine; Visit Provider Student in an Organized Health Care Education/Training Program
DX: A41.9 Sepsis, unspecified organism (principal); E11.00 Type 2 diabetes mellitus with hyperosmolarity without nonketotic hyperglycemic-hyperosmolar coma (NKHHC); J18.9 Pneumonia, unspecified organism; J96.01 Acute respiratory failure with hypoxia; E83.42 Hypomagnesemia; R65.20 Severe sepsis without septic shock; J10.1 Influenza due to other identified influenza virus with other respiratory manifestations; B96.20 Unspecified Escherichia coli [E. coli] as the cause of diseases classified elsewhere; F03.90 Unspecified dementia, unspecified severity, without behavioral disturbance, psychotic disturbance, mood disturbance, and anxiety; Z79.84 Long term (current) use of oral hypoglycemic drugs; Z20.822 Contact with and (suspected) exposure to COVID-19; Z79.4 Long term (current) use of insulin
CPT/HCPCS: 0241U; 36415; 36592; 51701; 70450; 71045; 71260; 72100; 72170; 74177; 80048; 80053; 80074; 81001; 82009; 82962; 83036; 83605; 83735; 84145; 85007; 85025; 86140; 87040; 87077; 87086; 87186; 87797; 96365; 97163; 97530; 99285; J0696; J1644; J1815; J2543; J3370; J3475; Q9967